=== PATIENT | female | born 1960 | race Caucasian/White ===

== ENCOUNTER → 2017-03-06 | Outpatient (CLI) | payer MEDICARE ==
--- NOTE | 2017-03-06 15:17 | REP ---
PELVIC ULTRASOUND: Real-time sonographic evaluation of the pelvis is performed utilizing transabdominal and endovaginal technique. The bladder measures 9.8 x 6.7 x 9.3 cm. The uterus measures 4.9 x 2.2 x 3.3 cm. Endometrial stripe measures 2 mm with no endometrial fluid collection. The right ovary could not be visualized. The left ovary measures 2.1 x 1.2 x 1.0 cm. There is no adnexal mass or free fluid. IMPRESSION: Essentially negative pelvic ultrasound as described above.
== END ==
LOC: M WHC 10:42
PROVIDERS: ATTEND Nurse Practitioner Family
DX: N95.0 Postmenopausal bleeding (principal)

== ENCOUNTER → 2017-08-04 | Outpatient (CLI) | payer MEDICARE, MEDICAID ==
--- NOTE | 2017-08-04 12:13 | REPMRS ---
Patient History The patient states she had a clinical breast exam in 07/2017. Patient is postmenopausal, has history of other cancer at age 49, and is nulliparous. Family history of breast cancer in 2 maternal aunts. Digital Woman Screen Mammo: August 04, 2017 - Exam #: [id number] Bilateral CC and MLO view(s) were taken. Technologist: Alma Sevilla, Technologist Prior study comparison: June 10, 2016, digital woman screen mammo performed at [facility]. May 03, 2015, digital woman screen mammo performed at [facility] to [facility]. FINDINGS: There are scattered fibroglandular densities. There has been no change in the appearance of the mammogram from the prior studies. There is a mild amount of residual fibroglandular tissue which is fairly symmetric. There is no interval development of dominant mass, architectural distortion, or clustered microcalcification suggestive of malignancy. ASSESSMENT: BI-RADS/ACR category 1 mammogram. Negative. Recommendation Routine screening mammogram in 1 year (for women over age 40). This mammogram was interpreted with the aid of an FDA-approved computer-aided dectection system. Electronically Signed By: Nasir Jiménez MD 08/04/17 0815
== END ==
LOC: M WHC 09:49
PROVIDERS: ATTEND Nurse Practitioner Family
DX: Z12.31 Encounter for screening mammogram for malignant neoplasm of breast (principal); Z78.0 Asymptomatic menopausal state; Z12.4 Encounter for screening for malignant neoplasm of cervix; Z12.12 Encounter for screening for malignant neoplasm of rectum; N88.8 Other specified noninflammatory disorders of cervix uteri
CPT/HCPCS: 82270; G0101; G0123; G0202

== ENCOUNTER → 2017-08-04 | Outpatient (REF) | payer MEDICARE, MEDICAID | LOC: M SFHCWAGY 10:21 | PROVIDERS: ATTEND Nurse Practitioner Family | DX: Z12.4 Encounter for screening for malignant neoplasm of cervix (principal); N88.8 Other specified noninflammatory disorders of cervix uteri ==

== ENCOUNTER → 2018-07-09 | Outpatient (CLI) | payer MEDICARE, MEDICAID | LOC: M PLARAD 07:37 | DX: G89.4 Chronic pain syndrome (principal); R93.7 Abnormal findings on diagnostic imaging of other parts of musculoskeletal system | CPT/HCPCS: 72148 ==

== ENCOUNTER → 2018-07-19 | Outpatient (CLI) | payer MEDICARE, MEDICAID | LOC: M PAIN 10:30 | DX: M43.07 Spondylolysis, lumbosacral region (principal); M48.07 Spinal stenosis, lumbosacral region; G89.29 Other chronic pain; I10 Essential (primary) hypertension; F32.9 Major depressive disorder, single episode, unspecified; K21.9 Gastro-esophageal reflux disease without esophagitis; M17.10 Unilateral primary osteoarthritis, unspecified knee; E66.01 Morbid (severe) obesity due to excess calories; Z68.41 Body mass index [BMI] 40.0-44.9, adult; Z79.899 Other long term (current) drug therapy; Z87.891 Personal history of nicotine dependence; Z98.84 Bariatric surgery status | CPT/HCPCS: G0463 ==

== ENCOUNTER → 2018-08-31 | Outpatient (CLI) | payer MEDICARE, MEDICAID ==
--- NOTE | 2018-08-31 14:46 | REPMRS ---
Patient History The patient states she had a clinical breast exam in 08/2018. Patient is postmenopausal, has history of vulvar cancer at age 49, and is nulliparous. Family history of breast cancer in maternal aunt, breast cancer in maternal aunt. No Hormone Replacement Therapy 3D TOMOSYNTHESIS WAS PERFORMED. Digital Woman Screen Mammo: August 31, 2018 - Exam #: [id number] Bilateral CC and MLO view(s) were taken. Technologist: Alma Sevilla, Technologist Prior study comparison: August 04, 2017, digital woman screen mammo performed at [email or web address]. June 10, 2016, digital woman screen mammo performed at [email or web address] to [facility]. FINDINGS: There are scattered fibroglandular densities. There has been no change in the appearance of the mammogram from the prior studies. There is a mild amount of residual fibroglandular tissue which is fairly symmetric. There is no interval development of dominant mass, architectural distortion, or clustered microcalcification suggestive of malignancy. Assessment: BI-RADS/ACR category 1 mammogram. Negative. Recommendation Routine screening mammogram in 1 year (for women over age 40). This mammogram was interpreted with the aid of an FDA-approved computer-aided dectection system. Electronically Signed By: Nasir Jiménez MD 08/31/18 [id number]
== END ==
LOC: M WHC 13:54
PROVIDERS: ATTEND Nurse Practitioner Family
DX: Z12.31 Encounter for screening mammogram for malignant neoplasm of breast (principal); Z78.0 Asymptomatic menopausal state; Z85.44 Personal history of malignant neoplasm of other female genital organs; Z12.4 Encounter for screening for malignant neoplasm of cervix; N95.2 Postmenopausal atrophic vaginitis
CPT/HCPCS: 77063; 77067; 87624; G0123; G0463

== ENCOUNTER → 2018-08-31 | Outpatient (REF) | payer MEDICARE, MEDICAID ==
[2018-09-06 08:06] LABS: HPV HYBRID CAPTURE II Negative (Negative)
== END ==
LOC: M SFHCWAGY 13:41
DX: Z12.4 Encounter for screening for malignant neoplasm of cervix (principal); N95.2 Postmenopausal atrophic vaginitis
CPT/HCPCS: G0123

== ENCOUNTER → 2018-10-14 | Outpatient (CLI) | payer MEDICARE, MEDICAID ==
--- NOTE | 2018-10-14 20:03 | REP ---
Clinical: Abdominal pain. Technique: Two supine views of the abdomen and pelvis. Findings: Findings suggest prior gastric bypass surgery. The bowel gas pattern is nonspecific. No organomegaly. No significant abnormal calcifications are identified. Degenerative changes to the visualized thoracolumbar spine and pelvis/hips noted. Impression: Nonspecific bowel gas pattern. Prior gastric bypass surgery. Electronically Signed by Nathen Meza MD 10/14/2018 07:55 P
== END ==
LOC: M LRY 10:28
PROVIDERS: ATTEND Nurse Practitioner Adult Health
DX: R10.30 Lower abdominal pain, unspecified (principal); R10.10 Upper abdominal pain, unspecified; M62.838 Other muscle spasm; Z98.84 Bariatric surgery status

== ENCOUNTER → 2018-11-04 | Outpatient (CLI) | payer MEDICARE, MEDICAID ==
[2018-11-06 14:43] LABS: PROTEIN C FUNCTIONAL ACTIVITY 140 % (73-180); PROTEIN S FUNCTIONAL ACTIVITY 92 % (63-140)
== END ==
LOC: M LAB 10:40
PROVIDERS: ATTEND Nurse Practitioner Adult Health
DX: E03.9 Hypothyroidism, unspecified (principal); E11.9 Type 2 diabetes mellitus without complications; R58 Hemorrhage, not elsewhere classified

== ENCOUNTER 2019-03-02 08:04 | Day surgery (SDC) | payer MEDICARE, MEDICAID ==
[~2019-03-02] VITALS: Ht 152.4 cm; Wt 102.1 kg
[~2019-03-02 08:04] MED LIST: BUPR75TA5; KETOROLAC 60 MG/2 ML VIAL (J1885) As Ordered ONE; LIDOCAINE 2% INJ 100 MG/5 ML SDV (FOR ANES.) As Ordered ONE; LISI-538; LISI20TA; LR 1,000 ML IV ONE; MIDAZOLAM INJ 2 MG/2 ML VIAL (J2250) As Ordered ONE; ONDANSETRON 4MG/2ML VIAL (J2405) As Ordered ONE; ONETAB20 PO; PANT20TA2; PROPOFOL 200 MG/20 ML VIAL As Ordered ONE; SERT-138; TRAZ150T90; fentaNYL 100 MCG/2 ML INJECTION (J3010) As Ordered ONE
[2019-03-02] MEDS ORDERED: LIDOCAINE 1% SDV INJ 30 ML VIAL As Ordered ONE (09:30)
[2019-03-02] MEDS ORDERED: dexameTHASONE 4 MG/ML 1ML VIAL (J1100) As Ordered ONE (09:30)
[2019-03-02] MEDS ORDERED: BUPIVACAINE HCL 0.5% 30 ML VIAL As Ordered ONE (09:30)
[2019-03-02] MEDS ORDERED: KETAMINE HCL 200 MG/20 ML VIAL As Ordered ONE (10:02)
[2019-03-02] MEDS ORDERED: MIDAZOLAM INJ 2 MG/2 ML VIAL (J2250) As Ordered ONE (10:12)
[2019-03-02] MEDS ORDERED: PROPOFOL 200 MG/20 ML VIAL As Ordered ONE ×3 (10:15→11:02)
[2019-03-02] MEDS ORDERED: fentaNYL 100 MCG/2 ML INJECTION (J3010) As Ordered ONE (11:04)
[2019-03-02] MEDS ORDERED: HYDR-3713 PO (11:40)
[2019-03-02 12:25] VITALS: BP 127/59
[2019-03-02] MEDS ORDERED: LR 1,000 ML IV SCH (12:30)
[2019-03-02] MEDS ORDERED: ACETAMINOPHEN TAB 650MG DOSE (2X325MG) PO PRN (12:30)
[2019-03-02] MEDS ORDERED: ONDANSETRON 4MG/2ML VIAL (J2405) IV PRN (12:30)
--- NOTE | 2019-03-02 13:59 | RO ---
DATE OF PROCEDURE: 03/02/2019 PREPROCEDURE DIAGNOSES: Left foot bunion hallux valgus, second and third metatarsal deformities, and fourth hammertoe. POSTPROCEDURE DIAGNOSES: Left foot bunion hallux valgus, second and third metatarsal deformities, and fourth hammertoe. SURGEON: Vincent Herrera DPM SALES REPRESENTATIVE PRINTING PAPER: None. PROCEDURE: Left bunionectomy, first metatarsal osteotomy, second and third shortening osteotomies and fourth flexor tenotomy. ANESTHESIA: Monitored anesthesia care with preoperative injection of 20 mL of 1:1 mixture of 1% lidocaine plain and 0.5% Marcaine plain. ESTIMATED BLOOD LOSS: Minimal. MATERIALS: 3-0 and 4-0 Vicryl, 4-0 nylon, Arthrex 2.5 headless compression screw, Arthrex 3.5 headless compression screw, and 4.5 K wires. 21 INJECTABLES: 1 mL of Decadron 4 mg/mL and 10 mL Lidocaine plain. COMPLICATIONS: None. CONDITION: Stable. Lauren Powers is a 58-year-old female who presents to [facility] with complaints of painful toe deformities. She presents today for surgical correction. The patient and site were identified and marked in the preoperative holding area. Consent was reviewed and obtained. Complications and alternatives to the procedure were explained to the patient in detail and all questions were answered. DESCRIPTION OF PROCEDURE: The patient was brought to the operating room and placed on the operating room table in the supine position. Monitored anesthesia care was delivered by the anesthesia team. Preoperative injection of 20 mL of 1:1 mixture of 1% lidocaine plain and 0.5% Marcaine plain were injected into the left foot. The left foot was prepped and draped in the normal sterile fashion. Tourniquet was applied to the left ankle and inflated at 250 mmHg. The patient received Ancef preoperatively. Dorsal incision was first made over the first metatarsophalangeal joint and dissection was carried down to the metatarsophalangeal joint capsule. Capsulotomy was performed, exposing the metatarsal head. Following this, lateral release was performed to release lateral adductor tendons and sesamoidal ligaments. McGlamry elevator was used to release the plantar structures. The medial eminence of the metatarsal head was resected with sagittal saw and ostotomy was performed of the metatarsal head, transposing it laterally, this was fixated with an Arthrex 3.5 headless compression screw. The remaining bone ledge was removed with sagittal saw and smoothed with rasp. A small wedge of capsule was removed from the medial capsule and capsule repair was performed with 3-0 Vicryl, subcutaneous closure with 4-0 Vicryl and skin was closed with 4-0 nylon. Next, attention was turned to the second and third toes. Dorsal incision was made over the metatarsals with a number 15 blade. Dissection was carried until each joint capsule was identified. Linear capsulotomy was performed exposing the second and third metatarsal heads. An ostomy was performed in these metatarsal heads, transposing the head of the metatarsal proximally and laterally. These were fixated with Arthrex 2.5 headless compression screws. The remaining bone ledge was removed with rongeur and smoothed with rasp. The site was irrigated with normal saline. After irrigation, a 4.0 K wire was placed in both the second and third toe from the distal toe entering the metatarsal head. Capsular repair was performed with 3-0 Vicryl, subcutaneous closure with 4-0 Vicryl, and skin closure with 4-0 nylon. Attention was then paid to the fourth toe. A flexor tenotomy was performed making a percutaneous incision over the plantar aspect of the toe, releasing the flexor tendon. Improved position of the toe was noted and this incision was repaired with 4-0 nylon. 10 mL of lidocaine was used during the procedure and 1 mL of Decadron was used at the end of the procedure. Sterile dressings were applied. The tourniquet was deflated. The patient was brought to the postanesthesia care unit (PACU), vital signs stable, neurovascular status intact. She will be partial weight bearing. She will followup in the office in 2 days.
== END 2019-03-02 12:50 | disposition home or self-care (01) ==
LOC: M SDC 08:04
PROVIDERS: ATTEND Podiatrist Foot & Ankle Surgery
DX: M20.12 Hallux valgus (acquired), left foot (principal); M20.42 Other hammer toe(s) (acquired), left foot; M20.5X2 Other deformities of toe(s) (acquired), left foot; I10 Essential (primary) hypertension; I49.9 Cardiac arrhythmia, unspecified; E03.9 Hypothyroidism, unspecified; E16.2 Hypoglycemia, unspecified; K21.9 Gastro-esophageal reflux disease without esophagitis; M12.9 Arthropathy, unspecified; F32.9 Major depressive disorder, single episode, unspecified; E11.9 Type 2 diabetes mellitus without complications; E78.2 Mixed hyperlipidemia; E66.9 Obesity, unspecified; Z68.41 Body mass index [BMI] 40.0-44.9, adult; Z79.899 Other long term (current) drug therapy; Z98.84 Bariatric surgery status; Z78.0 Asymptomatic menopausal state; Z87.891 Personal history of nicotine dependence
CPT/HCPCS: 28010; 28296; 28308; 88300; 97530; C1713; J0690; J1100; J2250; J2405; J3010

== ENCOUNTER → 2019-03-23 | Outpatient (REF) | payer MEDICARE, MEDICAID ==
[~2019-03-23] MED LIST changes: +DOXY100C37 PO; +HYDR-3713 PO; -KETOROLAC 60 MG/2 ML VIAL (J1885) As Ordered ONE; -LIDOCAINE 2% INJ 100 MG/5 ML SDV (FOR ANES.) As Ordered ONE; -LR 1,000 ML IV ONE; -MIDAZOLAM INJ 2 MG/2 ML VIAL (J2250) As Ordered ONE; -ONDANSETRON 4MG/2ML VIAL (J2405) As Ordered ONE; -PROPOFOL 200 MG/20 ML VIAL As Ordered ONE; +SULF1TAB93; -fentaNYL 100 MCG/2 ML INJECTION (J3010) As Ordered ONE
== END ==
LOC: M LAB REF 16:19
PROVIDERS: ATTEND Podiatrist Foot & Ankle Surgery
DX: L03.116 Cellulitis of left lower limb (principal)

== ENCOUNTER 2019-03-25 15:50 | Emergency (ER) | payer MEDICARE, MEDICAID ==
[~2019-03-25] VITALS: Ht 152.4 cm; Wt 103.7 kg
[~2019-03-25 15:50] MED LIST changes: -DOXY100C37 PO; -SULF1TAB93
[2019-03-25] MEDS ORDERED: SULF1TAB93 (16:14)
[2019-03-25] MEDS ORDERED: NS 1,000 ML IV ONE (16:30)
[2019-03-25 17:33] LABS: BASO # 0.1 10^3/uL (0.0-0.2); BASO % 0.6 % (0.0-1.0); EOS # 0.6 10^3/uL (0.0-0.50); EOS % 5.8 % (0.0-3.0); HEMATOCRIT 37.7 % (36.0-47.0); HEMOGLOBIN 12.4 g/dl (12.0-15.5); LYMPH # 1.3 10^3/uL (1.5-4.5); LYMPH % 12.7 % (24.0-44.0); MEAN CORPUSCULAR HGB CONC 32.9 g/dl (32.0-36.5); MEAN CORPUSCULAR VOLUME 94.3 fl (80.0-96.0); MONO % 9.4 % (0.0-5.0); NEUTROPHILS # 7.2 10^3/uL (1.8-7.7); NEUTROPHILS % 71.3 % (36.0-66.0); PLATELET COUNT, AUTOMATED 263 10^3/uL (150-450); WHITE BLOOD COUNT 10.1 10^3/uL (4.0-10.0)
[2019-03-25 17:43] LABS: ALBUMIN 3.8 GM/DL (3.2-5.2); BILIRUBIN,DIRECT 0.2 MG/DL (0.0-0.2); BILIRUBIN,TOTAL 0.4 MG/DL (0.2-1.0); TOTAL PROTEIN 7.3 GM/DL (6.4-8.2)
[2019-03-25 17:47] LABS: INR 0.98; PARTIAL THROMBOPLASTIN TIME 25.1 SECONDS (25.0-38.4); PROTHROMBIN TIME 12.7 SECONDS (11.8-14.0)
[2019-03-25] MEDS ORDERED: DOXY100C37 PO (17:57)
[2019-03-25 18:07] LABS: ERYTHROCYTE SEDIMENTATION RATE 26 mm/hr (0-30)
[2019-03-25 18:19] VITALS: BP 158/74
== END 2019-03-25 18:22 | disposition home or self-care (01) ==
LOC: M ED 15:50
DX: R21 Rash and other nonspecific skin eruption (principal); T36.8X5A Adverse effect of other systemic antibiotics, initial encounter; N17.9 Acute kidney failure, unspecified; I10 Essential (primary) hypertension; Z79.899 Other long term (current) drug therapy
CPT/HCPCS: 36415; 80047; 80053; 80076; 81002; 85025; 85610; 85652; 85730; 96360; 99284; G0463

== ENCOUNTER → 2019-03-25 | Outpatient (REF) | payer MEDICARE, MEDICAID ==
[2019-03-25 14:00] LABS: BASO # 0.1 10^3/uL (0.0-0.2); BASO % 0.5 % (0.0-1.0); EOS # 0.6 10^3/uL (0.0-0.50); EOS % 5.9 % (0.0-3.0); HEMATOCRIT 39.6 % (36.0-47.0); HEMOGLOBIN 12.8 g/dl (12.0-15.5); LYMPH # 1.4 10^3/uL (1.5-4.5); LYMPH % 12.7 % (24.0-44.0); MEAN CORPUSCULAR HEMOGLOBIN 30.2 pg (27.0-33.0); MEAN CORPUSCULAR HGB CONC 32.3 g/dl (32.0-36.5); MEAN CORPUSCULAR VOLUME 93.4 fl (80.0-96.0); MONO # 0.7 10^3/uL (0.0-0.8); MONO % 6.7 % (0.0-5.0); NEUTROPHILS # 8.1 10^3/uL (1.8-7.7); NEUTROPHILS % 73.9 % (36.0-66.0); PLATELET COUNT, AUTOMATED 317 10^3/uL (150-450); RED BLOOD COUNT 4.24 10^6/uL (4.00-5.40); WHITE BLOOD COUNT 10.9 10^3/uL (4.0-10.0)
[2019-03-25 14:07] LABS: BILIRUBIN,TOTAL 0.6 MG/DL (0.2-1.0); CALCIUM LEVEL 9.3 MG/DL (8.5-10.1); CREATININE FOR GFR 1.32 MG/DL (0.55-1.30); GLOMERULAR FILTRATION RATE 43.9 (>51); POTASSIUM SERUM 4.4 MEQ/L (3.5-5.1); TOTAL PROTEIN 7.5 GM/DL (6.4-8.2)
== END ==
LOC: M SFHCLERA 11:11
PROVIDERS: ATTEND Nurse Practitioner Family
DX: R23.3 Spontaneous ecchymoses (principal)

== ENCOUNTER → 2019-03-30 | Outpatient (REF) | payer MEDICARE, MEDICAID ==
[~2019-03-30] MED LIST changes: +DOXY100C37 PO; +SULF1TAB93
== END ==
LOC: M LAB REF 17:44
PROVIDERS: ATTEND Podiatrist Foot & Ankle Surgery
DX: M20.12 Hallux valgus (acquired), left foot (principal); L03.116 Cellulitis of left lower limb

== ENCOUNTER → 2019-07-07 | Outpatient (CLI) | payer MEDICARE, MEDICAID ==
[~2019-07-07] MED LIST changes: -LISI20TA; +LISI20TA19
--- NOTE | 2019-07-07 13:58 | REP ---
Six views of the calvaria: 07/07/2019. Indication: Head trauma. Comparison: None. Findings: There is no evidence of fracture. No lytic or blastic lesions of the calvarium are detected. The paranasal sinuses appear well-aerated. Impression: No fracture. Electronically Signed by Morteza Felton DO 07/07/2019 01:50 P
== END ==
LOC: M LRY 12:36
PROVIDERS: ATTEND Internal Medicine Cardiovascular Disease
DX: S09.90XA Unspecified injury of head, initial encounter (principal); X58.XXXA Exposure to other specified factors, initial encounter; Y92.9 Unspecified place or not applicable

== ENCOUNTER → 2019-09-01 | Outpatient (CLI) | payer MEDICARE, MEDICAID ==
--- NOTE | 2019-09-01 15:06 | REPMRS ---
Patient History The patient states she had a clinical breast exam in August 2019.Family history of breast cancer in maternal aunt, breast cancer in maternal aunt. No Hormone Replacement Therapy 3D TOMOSYNTHESIS WAS PERFORMED. [facility]%. Digital Woman Screen Mammo: September 01, 2019 - Exam #: [id number] Bilateral CC and MLO view(s) were taken. Technologist: Marcella Bales, Technologist Prior study comparison: August 31, 2018, bilateral digital woman screen mammo performed at [facility]. August 04, 2017, digital woman screen mammo performed at [facility]. FINDINGS: There are scattered fibroglandular densities. There has been no change in the appearance of the mammogram from the prior studies. There is a mild amount of residual fibroglandular tissue which is fairly symmetric. There is no interval development of dominant mass, architectural distortion, or clustered microcalcification suggestive of malignancy. Assessment: BI-RADS/ACR category 1 mammogram. Negative Mammogram. Recommendation Routine screening mammogram in 1 year (for women over age 40). This mammogram was interpreted with the aid of an FDA-approved computer-aided dectection system. Electronically Signed By: Nasir Jiménez MD 09/01/19 8814
== END ==
LOC: M WHC 13:40
PROVIDERS: ATTEND Nurse Practitioner Family
DX: Z01.419 Encounter for gynecological examination (general) (routine) without abnormal findings (principal); Z12.31 Encounter for screening mammogram for malignant neoplasm of breast
CPT/HCPCS: 77063; 77067; G0101; G0463

== ENCOUNTER → 2019-09-26 | Outpatient (CLI) | payer MEDICARE, MEDICAID ==
--- NOTE | 2019-09-26 20:26 | REP ---
Clinical: Obstructive sleep apnea . Comparison: None . Technique: PA and lateral. Findings: The mediastinum and cardiac silhouette are normal. The lung rags[place] are clear and without acute consolidation, effusion, or pneumothorax. The skeletal structures are intact and normal. Impression: 1. No acute cardiopulmonary process. Electronically Signed by Nathen Meza MD 09/26/2019 08:17 P
== END ==
LOC: M LRY 15:43
PROVIDERS: ATTEND Nurse Practitioner Adult Health
DX: G47.33 Obstructive sleep apnea (adult) (pediatric) (principal); R53.83 Other fatigue; J06.9 Acute upper respiratory infection, unspecified

== ENCOUNTER 2020-02-27 14:40 | Emergency (ER) | payer MEDICARE, MEDICAID ==
[~2020-02-27] VITALS: Ht 152.4 cm; Wt 98.6 kg
[~2020-02-27 14:40] MED LIST changes: -LISI-538; -LISI20TA19; +LISI20TA33; +LISI20TA35; -PANT20TA2; +PANT20TA6
[2020-02-27] MEDS ORDERED: METO1TAB87 PO (15:18)
[2020-02-27] MEDS ORDERED: ONDA-83 PO (15:18)
[2020-02-27] MEDS ORDERED: FLAG500T PO (15:18)
[2020-02-27] MEDS ORDERED: CIPR-249 PO (15:18)
[2020-02-27] MEDS ORDERED: PROB1CAP10 PO (15:18)
[2020-02-27 15:47] LABS: BASO # 0.1 10^3/uL (0.0-0.2); BASO % 0.8 % (0.0-1.0); EOS # 0.5 10^3/uL (0.0-0.5); EOS % 3.9 % (0.0-3.0); HEMATOCRIT 42.3 % (36.0-47.0); HEMOGLOBIN 13.5 g/dl (12.0-15.5); LYMPH # 2.7 10^3/uL (1.5-5.0); LYMPH % 20.1 % (24.0-44.0); MEAN CORPUSCULAR HEMOGLOBIN 32.9 pg (27.0-33.0); MEAN CORPUSCULAR HGB CONC 31.9 g/dl (32.0-36.5); MEAN CORPUSCULAR VOLUME 103.2 fl (80.0-96.0); MONO # 1.1 10^3/uL (0.0-0.8); MONO % 8.2 % (0.0-5.0); NEUTROPHILS % 66.8 % (36.0-66.0); PLATELET COUNT, AUTOMATED 307 10^3/uL (150-450); WHITE BLOOD COUNT 13.5 10^3/uL (4.0-10.0)
[2020-02-27 16:10] LABS: ALBUMIN 3.2 GM/DL (3.2-5.2); BILIRUBIN,DIRECT 0.2 MG/DL (0.0-0.2); BILIRUBIN,TOTAL 0.6 MG/DL (0.2-1.0); CALCIUM LEVEL 8.5 MG/DL (8.8-10.2); CREATININE FOR GFR 1.05 MG/DL (0.55-1.30); GLOMERULAR FILTRATION RATE 56.9 (>45); POTASSIUM SERUM 4.3 MEQ/L (3.5-5.1); TOTAL PROTEIN 6.4 GM/DL (6.4-8.2)
[2020-02-27 17:16] VITALS: BP 135/98
[2020-07-12] MEDS ORDERED: FAMO1TAB11 (10:24)
[2020-07-12] MEDS ORDERED: ALIG4CAP PO (10:38)
[2020-07-12] MEDS ORDERED: LOPE-39 PO (10:38)
[2020-07-12] MEDS ORDERED: PRES10CA2 PO (10:38)
[2020-11-01] MEDS ORDERED: SPIR-10 PO (16:21)
== END 2020-02-27 17:16 | disposition home or self-care (01) ==
LOC: M ED 14:40
DX: R19.7 Diarrhea, unspecified (principal); R53.83 Other fatigue; Z98.84 Bariatric surgery status; I10 Essential (primary) hypertension

== ENCOUNTER → 2020-02-28 | Outpatient (REF) | payer MEDICARE, MEDICAID ==
[~2020-02-28] MED LIST changes: +CIPR-249 PO; +FLAG500T PO; +LISI-538; +LISI20TA19; -LISI20TA33; -LISI20TA35; +METO1TAB87 PO; +ONDA-83 PO; +PANT20TA2; -PANT20TA6; +PROB1CAP10 PO
== END ==
LOC: M LAB REF 14:35
PROVIDERS: ATTEND Physician Assistant Medical
DX: R19.7 Diarrhea, unspecified (principal)

== ENCOUNTER → 2020-03-13 | Outpatient (REF) | payer MEDICARE, MEDICAID ==
[~2020-03-13] MED LIST changes: +ALDA50TA2 PO; +ALIG4CAP PO; +CHOL4PW PO; +FAMO1TAB11; +LASI40TA9 PO; -LISI20TA19; +LISI20TA35; +LOPE-39 PO; -PANT20TA2; +PANT20TA6; +POTA10TA17 PO; +PRES10CA2 PO; +XIFA550T PO
[2020-03-13 21:35] LABS: CLOSTRIDIUM DIFFICILE PCR NEGATIVE (NEGATIVE)
== END ==
LOC: M SFHCPLAZ 16:25
PROVIDERS: ATTEND Internal Medicine Infectious Disease
DX: A04.72 Enterocolitis due to Clostridium difficile, not specified as recurrent (principal)

== ENCOUNTER → 2020-05-23 | Outpatient (REF) | payer MEDICARE, MEDICAID | LOC: M LAB REF 11:30 | PROVIDERS: ATTEND Dermatology | DX: C44.41 Basal cell carcinoma of skin of scalp and neck (principal) | CPT/HCPCS: 11102; 88305; G0463 ==

== ENCOUNTER → 2020-06-04 | Outpatient (REF) | payer MEDICARE, MEDICAID | LOC: M SFHCPLAZ 10:20 | PROVIDERS: ATTEND Internal Medicine Infectious Disease | DX: R19.7 Diarrhea, unspecified (principal) ==

== ENCOUNTER → 2020-06-26 | Outpatient (CLI) | payer MEDICARE, MEDICAID ==
[2020-07-03 15:07] LABS: METANEPHRINE PLASMA 25.6 pg/mL (0.0-88.0); NORMETANEPHRINE PLASMA 127.5 pg/mL (0.0-191.8)
== END ==
LOC: M LAB 11:14
PROVIDERS: ATTEND Internal Medicine Endocrinology, Diabetes & Metabolism
DX: D35.02 Benign neoplasm of left adrenal gland (principal)

== ENCOUNTER → 2020-07-16 | Outpatient (REF) | payer MEDICARE, MEDICAID | LOC: M SFHCPLAZ 15:26 | PROVIDERS: ATTEND Internal Medicine Infectious Disease | DX: Z20.828 Contact with and (suspected) exposure to other viral communicable diseases (principal) ==

== ENCOUNTER → 2020-07-16 | Outpatient (CLI) | payer MEDICARE, MEDICAID ==
[~2020-07-16] MED LIST changes: -ALDA50TA2 PO; -CHOL4PW PO; -LASI40TA9 PO; -POTA10TA17 PO; -XIFA550T PO
[2020-07-16 17:47] LABS: BASO # 0.1 10^3/uL (0.0-0.2); BASO % 0.7 % (0.0-1.0); EOS # 0.4 10^3/uL (0.0-0.5); EOS % 2.3 % (0.0-3.0); HEMATOCRIT 42.7 % (36.0-47.0); HEMOGLOBIN 12.8 g/dl (12.0-15.5); LYMPH # 3.5 10^3/uL (1.5-5.0); LYMPH % 18.4 % (24.0-44.0); MEAN CORPUSCULAR VOLUME 113.3 fl (80.0-96.0); MONO # 1.5 10^3/uL (0.0-0.8); MONO % 7.8 % (0.0-5.0); NEUTROPHILS # 13.3 10^3/uL (1.5-8.5); NEUTROPHILS % 70.3 % (36.0-66.0); PLATELET COUNT, AUTOMATED 332 10^3/uL (150-450); RED BLOOD COUNT 3.77 10^6/uL (4.00-5.40); WHITE BLOOD COUNT 18.9 10^3/uL (4.0-10.0)
[2020-07-16 18:29] LABS: ALBUMIN 2.3 GM/DL (3.2-5.2); ALT/SGPT 59 U/L (12-78); BILIRUBIN,TOTAL 2.5 MG/DL (0.2-1.0); BLOOD UREA NITROGEN 12 MG/DL (7-18); CALCIUM LEVEL 8.6 MG/DL (8.8-10.2); CARBON DIOXIDE LEVEL 26 MEQ/L (21-32); CHLORIDE LEVEL 111 MEQ/L (98-107); CREATININE FOR GFR 0.89 MG/DL (0.55-1.30); FREE T4 1.58 NG/DL (0.76-1.46); GLOMERULAR FILTRATION RATE > 60.0 (>45); GLUCOSE, FASTING 87 MG/DL (70-100); IRON (FE) 61 UG/DL (50-170); PERCENT SATURATION 37.7 % (13.2-45.0); POTASSIUM SERUM 4.8 MEQ/L (3.5-5.1); SODIUM LEVEL 145 MEQ/L (136-145); TOTAL IRON BINDING CAPACITY 162 UG/DL (250-450); TOTAL PROTEIN 5.9 GM/DL (6.4-8.2)
[2020-07-18 14:42] LABS: BILIRUBIN,DIRECT 1.8 MG/DL (0.0-0.2)
== END ==
LOC: M PLALAB 12:58
PROVIDERS: ATTEND Internal Medicine Gastroenterology
DX: R19.7 Diarrhea, unspecified (principal); A04.72 Enterocolitis due to Clostridium difficile, not specified as recurrent

== ENCOUNTER 2020-07-19 12:03 | Inpatient (IN) | payer MEDICARE, MEDICAID ==
[~2020-07-19] VITALS: Ht 152.4 cm; Wt 95.4 kg
[~2020-07-19 12:03] MED LIST changes: +NS 1,000 ML IV ONE; +PANTOPRAZOLE 20 MG TAB PO SCH
[2020-07-19] MEDS ORDERED: LIDOCAINE 2% 100MG/5ML SDV (FOR ANES.) As Ordered ONE (12:15)
[2020-07-19] MEDS ORDERED: propofoL 200 MG/20 ML VIAL As Ordered ONE ×2 (12:15→15:36)
[2020-07-19 13:23] LABS: BASO # 0.1 10^3/uL (0.0-0.2); BASO % 0.6 % (0.0-1.0); EOS # 0.4 10^3/uL (0.0-0.5); EOS % 2.2 % (0.0-3.0); HEMOGLOBIN 11.8 g/dl (12.0-15.5); LYMPH # 2.6 10^3/uL (1.5-5.0); LYMPH % 14.1 % (24.0-44.0); MEAN CORPUSCULAR HEMOGLOBIN 33.4 pg (27.0-33.0); MEAN CORPUSCULAR HGB CONC 30.3 g/dl (32.0-36.5); MEAN CORPUSCULAR VOLUME 110.5 fl (80.0-96.0); MONO # 1.3 10^3/uL (0.0-0.8); MONO % 7.1 % (0.0-5.0); NEUTROPHILS % 75.6 % (36.0-66.0); PLATELET COUNT, AUTOMATED 325 10^3/uL (150-450); RED BLOOD COUNT 3.53 10^6/uL (4.00-5.40); WHITE BLOOD COUNT 18.5 10^3/uL (4.0-10.0)
[2020-07-19 13:33] LABS: INR 1.33; PROTHROMBIN TIME 16.8 SECONDS (12.5-14.3)
[2020-07-19 13:39] LABS: ALBUMIN 2.2 GM/DL (3.2-5.2); ALT/SGPT 52 U/L (12-78); BILIRUBIN,TOTAL 2.8 MG/DL (0.2-1.0); BLOOD UREA NITROGEN 11 MG/DL (7-18); CARBON DIOXIDE LEVEL 25 MEQ/L (21-32); CHLORIDE LEVEL 107 MEQ/L (98-107); CREATININE FOR GFR 1.01 MG/DL (0.55-1.30); GLOMERULAR FILTRATION RATE 59.3 (>45); GLUCOSE, FASTING 85 MG/DL (70-100); IRON (FE) 64 UG/DL (50-170); PERCENT SATURATION 43.5 % (13.2-45.0); POTASSIUM SERUM 4.8 MEQ/L (3.5-5.1); SODIUM LEVEL 142 MEQ/L (136-145); TOTAL IRON BINDING CAPACITY 147 UG/DL (250-450); TOTAL PROTEIN 5.6 GM/DL (6.4-8.2)
[2020-07-19 13:55] LABS: VITAMIN B12 LEVEL 1922 PG/ML (247-911)
[2020-07-19 14:06] LABS: HEPATITIS B SURFACE ANTIGEN NEGATIVE (NEGATIVE)
[2020-07-19 14:33] LABS: HEPATITIS C VIRUS ABY INDEX 0.1 INDEX (<0.8)
[2020-07-19 14:34] LABS: HEPATITIS B CORE ANTIBODY IGM NEGATIVE (NEGATIVE)
[2020-07-19 14:35] LABS: HEPATITIS A ANTIBODY IGM NEGATIVE (NEGATIVE)
--- NOTE | 2020-07-19 16:21 | ROOR ---
Patient Name: Lauren Powers Procedure Date: 07/19/2020 3:06 PM Date of : 1960 Age: 60 Room: [facility] Gender: Female Note Status: Finalized Procedure: Colonoscopy Indications: Generalized abdominal pain, Chronic diarrhea Providers: Kush DYSON MD Referring MD: ALIE ISRAEL NP Requesting Provider: Medicines: Monitored Anesthesia Care Complications: No immediate complications. Procedure: Pre-Anesthesia Assessment: - The heart rate, respiratory rate, oxygen saturations, blood pressure, adequacy of pulmonary ventilation, and response to care were monitored throughout the procedure. The Colonoscope was introduced through the anus and advanced to 15 cm into the ileum. The colonoscopy was performed without difficulty. The patient tolerated the procedure fairly well. The quality of the bowel preparation was fair. Findings: The perianal and digital rectal examinations were normal. Two flat polyps were found in the hepatic flexure and ascending colon. The polyps were 5 to 9 mm in size. These polyps were removed with a cold snare. Resection and retrieval were complete. Mild sigmoid diverticulosis and small internal hemorrhoids. The exam was otherwise normal throughout the examined colon. The terminal ileum appeared normal. Biopsies for histology were taken with a cold forceps from the entire colon for evaluation of microscopic colitis. Fluid aspiration for Clostridium difficile was performed. Impression: - Preparation of the colon was fair. - Two 5 to 9 mm polyps at the hepatic flexure and in the ascending colon, removed with a cold snare. Resected and retrieved. - Mild sigmoid diverticulosis and small internal hemorrhoids. - The colon is otherwise normal. - The examined portion of the ileum was normal. - Biopsies were taken with a cold forceps from the entire colon for evaluation of microscopic colitis. - Fluid aspiration for Clostridium difficile was performed. Recommendation: - Await pathology results. - Admit the patient to hospital foster for ongoing care. Kush Dyson MD Kush DYSON MD 07/19/2020 4:20:46 PM Electronically signed by Kush DYSON MD Number of Addenda: 0 Note Initiated On: 07/19/2020 3:06 PM Estimated Blood Loss: Estimated blood loss: none.
[2020-07-19] MEDS ORDERED: NS 1,000 ML IV ONE (17:00)
[2020-07-19] MEDS ORDERED: LOPERAMIDE 2 MG CAPLET PO PRN (17:00)
--- NOTE | 2020-07-19 17:57 | REPVR ---
PROCEDURE INFORMATION: Exam: US Duplex Lower Extremity Veins, Bilateral Exam date and time: 07/19/2020 5:47 PM Age: 60 years old Clinical indication: Edema, localized; Lower extremity, bilateral; Additional info: Le edema R/O dvt TECHNIQUE: Imaging protocol: Real-time duplex ultrasound of the extremities with 2-D barroso scale, color Doppler flow and spectral waveform analysis with image documentation. Complete exam focused on the bilateral lower extremity veins. COMPARISON: No relevant prior studies available. FINDINGS: Right deep veins: Unremarkable. The common femoral, femoral and popliteal veins are patent without thrombus. Normal Doppler waveforms. Normal compressibility and/or augmentation response. Right superficial veins: Saphenofemoral junction is patent without thrombus. Left deep veins: Unremarkable. The common femoral, femoral and popliteal veins are patent without thrombus. Normal Doppler waveforms. Normal compressibility and/or augmentation response. Left superficial veins: Saphenofemoral junction is patent without thrombus. Soft tissues: Soft tissue edema is noted in the popliteal regions bilaterally. IMPRESSION: 1. No evidence of deep vein thrombosis in the lower extremities bilaterally. 2. Soft tissue edema is noted in the popliteal regions bilaterally. Electronically signed by: Nagi Hanks On 07/19/2020 17:56:41 PM
[2020-07-19] MEDS: LACTOBACILLUS ACIDOPHILUS CAP (BACID) PO SCH ×3 (18:00→20:57)
[2020-07-19 18:07] VITALS: BP 115/59
[2020-07-19 19:03] LABS: LDH LACTATE DEHYDROGENASE 583 U/L (84-246)
[2020-07-19 19:10] LABS: TOTAL 25(OH) VITAMIN D 25.4 NG/ML (30.0-100.0)
[2020-07-19 19:11] LABS: C REACTIVE PROTEIN QUANTITATIV 3.83 MG/DL (0.00-0.30); FREE THYROXINE INDEX 4.1 % (1.3-4.8); THYROID STIMULATING HORMONE 9.06 uIU/ML (0.358-3.740); VITAMIN B12 LEVEL 1859 PG/ML (247-911)
--- NOTE | 2020-07-19 19:14 | REPVR ---
PROCEDURE INFORMATION: Exam: XR Chest, 1 View Exam date and time: 07/19/2020 6:42 PM Age: 60 years old Clinical indication: Shortness of breath; Additional info: Wbc 18 TECHNIQUE: Imaging protocol: XR of the chest Views: 1 view. COMPARISON: CR CHEST 2 VIEW 09/26/2019 4:00 PM FINDINGS: Lungs: Comparison to the previous chest radiographs from 09/26/2019 shows no significant interval change. Both lungs are well-aerated. No evidence of acute pneumonia. Pleural space: Unremarkable. No pleural effusion. No pneumothorax. Heart/Mediastinum: Unremarkable. No cardiomegaly. Bones/joints: Unremarkable. IMPRESSION: Comparison to the previous chest radiographs from 09/26/2019 shows no significant interval change. Both lungs are well-aerated. No evidence of acute pneumonia. Electronically signed by: Nagi Hanks On 07/19/2020 19:14:39 PM
[2020-07-19 20:00] VITALS: BP 144/80
--- NOTE | 2020-07-19 20:24 | HPEPDOC ---
[facility] Medical History & Physical Date of Admission Jul 19, 2020 Date of Service: Jul 19, 2020 History and Physical CHIEF COMPLAINT: chronic diarrhea, LE edema, abnormal liver function tests HISTORY OF PRESENT ILLNESS: 60 y/o female was in her usual state of health until 01/24/2020 when she had a fall, and admitted to [facility] ,where she was found to have acute renal failure due to chronic diarrhea, transaminitis with negative hepatitis serology, diagnosed and treated for Cdiff with 14 days of oral vancomycin, subsequently discharged to [facility]. Since then, pt has been given macrobid for E coli cystitis x7 days, and cipro flagyl x 7days for diarrhea. She was referred to ID who recommended GI referral. Repeat Cdiff have been negative, and pt has been placed on fidaxomicin. Colonoscopy by Dr. Dyson: sigmoid diverticulosis, colon polyp, internal hemorrhoids, with biopsies to rule out microscopic colitis. Due to abnormal LFTs, LE edema, and 15lb weight loss with chronic diarrhea, hospitalist was called to admit for further workup. Pt previously had 10-12 loose stools with decreased appetite, abd cramping, generalized weakness, and 15 lb weight loss without n/v/fever, or chills, improved since xifaxan down to 5-7bm. Pt denies bloody or mucusy stools, mouth ulcers, joint pain, or rash. PAST MEDICAL HISTORY: C. Diff,Enteropathogenic E coli Diarrhea, sigmoid diverticulosis, colonic polyp, internal hemorrhoids, HTN, borderline DM, obesity, Depression, GERD, Left breast abscess, abnormal pap HSIL, SCC in situ, hirsute, h/o PCOS, postmenopausal, Knee OA, LBP,DUB, Ecoli cystitis, Adrenal adenoma PAST SURGICAL HISTORY: cologard neg 2018, D&C, 2005 gastric bypass, appendectomy 1998, vulvar biopsy (otto) HSIL, SCC insitu, laser therapy on vulva, tummy tuck 2008, left foot bunionectomy, repair of toes /tendon 02/2019, colonoscopy age 49 HOME MEDICATIONS: see below ALLERGIES: sulfa-rash SOCIAL HISTORY: , lives w . retired, [employer], former smoker, no etoh or recreational drug use. FAMILY HISTORY: father, throat ca 59 mother, CAD, CVA, DM 75 Brother, ETOH Brother, drug use REVIEW OF SYSTEMS: 10 pt ROS negative aside from + findings on HPI PHYSICAL EXAMINATION: VITALS: see below GEN: AAOx3 no respiratory distress. no conversational dyspnea, hirsute with facial hair, appears older than stated age. multiple ecchymotic areas on b/l arms HEENT:face symmetric PERRL EOMI no thyromegaly no JVD, cervical LAD,poor dentition, dry mucus membranes, no sinus tenderness, no carotid bruits LUNGS:AEBE CTAB no wheezing, rales, or rhonchi. no adventitious breath sounds HEART:S1 S2 RRR no murmurs rubs or gallops ABD: obese soft nt nd no hsm no cva tenderness rebound or guarding no abd bruit EXT:2+ edema b/l LE LABORATORY DATA, IMAGING STUDIES, MICROBIOLOGY: SEE BELOW ASSESSMENT:60 y/o female was in her usual state of health until 01/24/2020 when she had a fall, and admitted to [facility] ,where she was found to have acute renal failure due to chronic diarrhea, transaminitis with negative hepatitis serology, diagnosed and treated for Cdiff with 14 days of oral vancomycin, subsequently discharged to [facility]. Since then, pt has been given macrobid for E coli cystitis x7 days, and c ipro flagyl x 7days for diarrhea. She was referred to ID who recommended GI referral. Repeat Cdiff have been negative, and pt has been placed on fidaxomicin. Colonoscopy by Dr. Dyson: sigmoid diverticulosis, colon polyp, internal hemorrhoids, with biopsies to rule out microscopic colitis. Due to ab normal LFTs, LE edema, and 15lb weight loss with chronic diarrhea, hospitalist was called to admit for further workup. Pt previously had 10-12 loose stools with decreased appetite, abd cramping, generalized weakness, and 15 lb weight loss without n/v/fever, or chills, improved since xifaxan down to 5-7bm. Pt denies bloody or mucusy stools, mouth ulcers, joint pain, or rash. COVID-19 negative. PROBLEMS: Chronic Diarrhea h/o cdiff and enteropathogenic Ecoli Transaminitis Hyperbilirubinemia LE edema Adrenal Adenoma h/o PCOS 15 weight loss due to diarrhea sigmoid diverticulosis HTN borderline DM obesity BMI 43 Depression GERD chronic back pain leukocytosis Anemia, macrocytic PLAN: pt will be admitted as an inpt for 2 midnights to [facility]. work up for abn lft's: serology, ceruloplasmin, serum copper, abel, antimitochontrial ab, hepatitis, doppler liver us, mrcp, iron studies. workup for diarrhea: s/p colonoscopy w biopsy to rule out IBD,microscopic colitis, GI panel, thyroid profile, secretory vs osmotic diarrhea, malabsorption w rbc folate, b12, vit d. work up for anemia: check iron studies, retic count, b12, folate, peripheral smear ,stool for blood, hemolytic anemia. ID and GI consulted. continue supportive care. clear liquids per GI for now. Vital Signs Vital Signs Date Time Temp Pulse Resp B/P (MAP) Pulse Ox O2 Delivery O2 Flow Rate FiO2 07/19/20 18:07 98.5 80 16 115/59 (77) 99 Room Air Laboratory Data Labs 24H Laboratory Tests 2 07/19/20 12:54: Immature Granulocyte % (Auto) 0.4, Neutrophils (%) (Auto) 75.6H, Lymphocytes (%) (Auto) 14.1L, Monocytes (%) (Auto) 7.1H, Eosinophils (%) (Auto) 2.2, Basophils (%) (Auto) 0.6, Neutrophils # (Auto) 14.0H, Lymphocytes # (Auto) 2.6, Monocytes # (Auto) 1.3H, Eosinophils # (Auto) 0.4, Basophils # (Auto) 0.1, Nucleated Red Blood Cells % (auto) 0.0, Prothrombin Time 16.8H, Prothromb Time International Ratio 1.33, Anion Gap 10, Glomerular Filtration Rate 59.3, Calcium Level 9.0, Iron Level 64, Total Iron Binding Capacity 147L, Transferrin % Saturation 43.5, Total Bilirubin 2.8H, Direct Bilirubin 2.0H, Aspartate Amino Transf (AST/SGOT) 111H, Alanine Aminotransferase (ALT/SGPT) 52, Alkaline Phosphatase 173H, Total P rotein 5.6L, Albumin 2.2L, Albumin/Globulin Ratio 0.6L, Vitamin B12 Level 1922H, Hepatitis A IgM Antibody NEGATIVE, Hepatitis B Surface Antigen NEGATIVE, Hepatitis B Core IgM Antibody NEGATIVE, Hepatitis C Antibody Index 0.1 07/19/20 18:26: Vitamin B12 Level 1859H, Reticulocyte # (auto) 80.7H, Percent Reticulocyte Count 2.4H, Reticulocyte Hemoglobin Equivalent 35.7, Lactic Acid Level 1.8, Gamma Glutamyl Transferase 317H, Lactate Dehydrogenase 583H, C-Reactive Protein, Quant itative 3.83H, 25-Hydroxy Vitamin D Total 25.4L, Thyroid Stimulating Hormone (TSH) 9.060H, Free Thyroxine Index 4.1, Thyroxine (T4) 11.0, Triiodothyronine (T3) Uptake 37 CBC/BMP Laboratory Tests 07/19/20 12:54 07/19/20 18:26 Microbiology Microbiology 07/19/20 Blood Culture, Received Pending Home Medications Scheduled Bifidobacterium Infantis (Align) 4 Mg Capsule, 1 CAP PO DAILY Loperamide HCl (Imodium A-D) 2 Mg Capsule, 2 MG PO ASDIRECTED Metoprolol Tartrate (Metoprolol Tartrate) 25 Mg Tablet, 1 TAB PO BID Sertraline HCl (Sertraline HCl) 100 Mg Tablet, DAILY Vit C/E/Zn/Coppr/Lutein/Zeaxan (Preservision Areds 2 Softgel) 1 Each Capsule, 1 EACH PO DAILY Scheduled PRN Ondansetron HCl (Ondansetron HCl) 4 Mg Tablet, 1 TAB PO PRN PRN for NAUSEA Miscellaneous Medications Famotidine (Famotidine) 20 Mg Tablet Allergies Coded Allergies: Sulfa (Sulfonamide Antibiotics) (Verified Allergy, Intermediate, H, 1 ) A-FIB/CHADSVASC A-FIB History Current/History of A-Fib/PAF?: No Current PO Anticoag Therapy: No Age/Risk Factor Scoring CHADSVASC: CHADSVASC Response (Comments) Value Age Risk Factor Age < 65 years old 0 Gender Risk Factor Female 1 Hx of CHF No 0 Hx of HTN Yes 1 Hx of Stroke/TIA/or VTE No 0 Hx of Diabetes No 0 Hx of Vascular Disease No 0 Total 2 Treatment Treatment ordered: NONE SANDRA DAWSON MD Jul 19, 2020 19:26
[2020-07-19] MEDS: rifAXIMin 550 MG TAB (XIFAXAN) PO SCH (20:57)
[2020-07-19] MEDS: SERTRALINE 100 MG TAB PO SCH (20:57)
[2020-07-19] MEDS ORDERED: METOPROLOL TART 25 MG TABLET PO SCH (21:00)
[2020-07-19] MEDS ORDERED: FAMOTIDINE 40MG/5ML ORAL SUSPENSON 50ML BOTTLE PO SCH (21:00)
[2020-07-20 05:39] LABS: BASO # 0.1 10^3/uL (0.0-0.2); BASO % 0.7 % (0.0-1.0); EOS # 0.7 10^3/uL (0.0-0.5); EOS % 4.6 % (0.0-3.0); HEMATOCRIT 33.4 % (36.0-47.0); HEMOGLOBIN 10.7 g/dl (12.0-15.5); LYMPH # 2.3 10^3/uL (1.5-5.0); MEAN CORPUSCULAR HEMOGLOBIN 34.5 pg (27.0-33.0); MEAN CORPUSCULAR VOLUME 107.7 fl (80.0-96.0); MONO # 1.3 10^3/uL (0.0-0.8); MONO % 8.9 % (0.0-5.0); NEUTROPHILS # 10.2 10^3/uL (1.5-8.5); NEUTROPHILS % 69.5 % (36.0-66.0); PLATELET COUNT, AUTOMATED 238 10^3/uL (150-450); WHITE BLOOD COUNT 14.6 10^3/uL (4.0-10.0)
[2020-07-20 06:09] LABS: ALBUMIN 1.8 GM/DL (3.2-5.2); ALT/SGPT 41 U/L (12-78); BILIRUBIN,TOTAL 2.4 MG/DL (0.2-1.0); BLOOD UREA NITROGEN 10 MG/DL (7-18); CALCIUM LEVEL 7.7 MG/DL (8.8-10.2); CARBON DIOXIDE LEVEL 24 MEQ/L (21-32); CHLORIDE LEVEL 111 MEQ/L (98-107); CREATININE FOR GFR 0.88 MG/DL (0.55-1.30); GLOMERULAR FILTRATION RATE > 60.0 (>45); GLUCOSE, FASTING 94 MG/DL (70-100); LIPASE 39 U/L (73-393); MAGNESIUM LEVEL 1.9 MG/DL (1.8-2.4); POTASSIUM SERUM 3.4 MEQ/L (3.5-5.1); SODIUM LEVEL 143 MEQ/L (136-145); TOTAL PROTEIN 4.7 GM/DL (6.4-8.2)
[2020-07-20 06:26] VITALS: BP 143/66
--- NOTE | 2020-07-20 07:56 | IPNPDOC ---
Date Seen The patient was seen on 07/20/20. Progress Note SUBJECTIVE: 4 loose stools overnight with abd cramping, making it difficult to sleep. no n/v/f/c/dizziness/lightheadedness. denies red blood or mucus in the diarrhea. OBJECTIVE: PHYSICAL EXAMINATION: VITALS: see below GEN: AAOx3 no respiratory distress.no pallor or icterus HEENT:anicteric, no jaundice face symmetric PERRL EOMI no thyromegaly no JVD, cervical LAD,poor dentition, dry mucus membranes, no sinus tenderness, no carotid bruits LUNGS:AEBE CTAB no wheezing, rales, or rhonchi. no adventitious breath sounds HEART:S1 S2 RRR no murmurs rubs or gallops ABD: obese soft nt nd no hsm no cva tenderness rebound or guarding no abd bruit EXT:2+ edema b/l LE LABORATORY DATA, IMAGING STUDIES, MICROBIOLOGY: SEE BELOW ASSESSMENT:60 y/o female was in her usual state of health until 01/24/2020 when she had a fall, and admitted to [facility] ,where she was found to have acute renal failure due to chronic diarrhea, transaminitis with negative hepatitis serology, diagnosed and treated for Cdiff with 14 days of oral vancomycin, subsequently discharged to [facility]. Since then, pt has been given macrobid for E coli cystitis x7 days, and cipro flagyl x 7days for diarrhea. She was referred to ID who recommended GI referral. Repeat Cdiff have been negative, and pt has been placed on fidaxomicin. Colonoscopy by Dr. Dyson: sigmoid diverticulosis, colon polyp, internal hemorrhoids, with biopsies to rule out microscopic colitis. Due to abnormal LFTs, LE edema, and 15lb weight loss with chronic diarrhea, hospitalist was called to admit for further workup. Pt previously had 10-12 loose stools with decreased appetite, abd cramping, generalized weakness, and 15 lb weight loss without n/v/fever, or chills, improved since xifaxan down to 5-7bm. Pt den ies bloody or mucusy stools, mouth ulcers, joint pain, or rash. COVID-19 negative. PROBLEMS: Chronic Diarrhea h/o cdiff and enteropathogenic Ecoli Transaminitis Hyperbilirubinemia Hypokalemia Hypoalbuminemia LE edema Adrenal Adenoma h/o PCOS 15 weight loss due to diarrhea sigmoid diverticulosis HTN borderline DM obesity BMI 43 Depression GERD chronic back pain leukocytosis Anemia, macrocytic PLAN: awaiting mrcp, doppler us of liver, echo. GI and ID consulted. wbc improved w xifaxan. await serology, blood work, obtain records from [employer] re: adenoma. compression stockings. once doppler of liver us is completed, may restart clears and advance depending on GI recommendations. VS, I&O, 24H, Fishbone Vital Signs/I&O Vital Signs Date Time Temp Pulse Resp B/P (MAP) Pulse Ox O2 Delivery O2 Flow Rate FiO2 07/20/20 06:26 99.2 88 20 143/66 (91) 96 Room Air I&O- Last 24 Hours up to 6 AM 07/20/20 06:00 Intake Total 660 ml Output Total 50 ml Balance 610 ml Laboratory Data 24H LABS Laboratory Tests 2 07/19/20 12:54: Immature Granulocyte % (Auto) 0.4, Neutrophils (%) (Auto) 75.6H, Lymphocytes (%) (Auto) 14.1L, Monocytes (%) (Auto) 7.1H, Eosinophils (%) (Auto) 2.2, Basophils (%) (Auto) 0.6, Neutrophils # (Auto) 14.0H, Lymphocytes # (Auto) 2.6, Monocytes # (Auto) 1.3H, Eosinophils # (Auto) 0.4, Basophils # (Auto) 0.1, Nucleated Red Blood Cells % (auto) 0.0, Prothrombin Time 16.8H, Prothromb Time International Ratio 1.33, Anion Gap 10, Glomerular Filtration Rate 59.3, Calcium Level 9.0, Iron Level 64, Total Iron Binding Capacity 147L, Transferrin % Saturation 43.5, Total Bilirubin 2.8H, Direct Bilirubin 2.0H, Aspartate Amino Transf (AST/SGOT) 111H, Alanine Aminotransferase (ALT/SGPT) 52, Alkaline Phosphatase 173H, Total Protein 5.6L, Albumin 2.2L, Albumin/Globulin Ratio 0.6L, Vitamin B12 Level 1922H, Hepatitis A IgM Antibody NEGATIVE, Hepatitis B Surface Antigen NEGATIVE, Hepatitis B Core IgM Antibody NEGATIVE, Hepatitis C Antibody Index 0.1 07/19/20 18:26: Vitamin B12 Level 1859H, Reticulocyte # (auto) 80.7H, Percent Reticulocyte Count 2.4H, Reticulocyte Hemoglobin Equivalent 35.7, Lactic Acid Level 1.8, Gamma Glutamyl Transferase 317H, Lactate Dehydrogenase 583H, C-Reactive Protein, Quantitative 3.83H, 25-Hydroxy Vitamin D Total 25.4L, Thyroid Stimulating Hormone (TSH) 9.060H, Free Thyroxine Index 4.1, Thyroxine (T4) 11.0, Triiodothyronine (T3) Uptake 37 07/19/20 20:33: Clostridium difficile [id number] PRESUMPTIVE NEGATIVE, Clostridium difficile Toxin (PCR) NEGATIVE 07/20/20 05:26: Immature Granulocyte % (Auto) 0.3, Neutrophils (%) (Auto) 69.5H, Lymphocytes (%) (Auto) 16.0L, Monocytes (%) (Auto) 8.9H, Eosinophils (%) (Auto) 4.6H, Basophils (%) (Auto) 0.7, Neutrophils # (Auto) 10.2H, Lymphocytes # (Auto) 2.3, Monocytes # (Auto) 1.3H, Eosinophils # (Auto) 0.7H, Basophils # (Auto) 0.1, Nucleated Red Blood Cells % (auto) 0.0, Anion Gap 8, Glomerular Filtration Rate > 60.0, Calcium Level 7.7L, Total Bilirubin 2.4H, Aspartate Amino Transf (AST/SGOT) 82H, Alanine Aminotransferase (ALT/SGPT) 41, Alkaline Phosphatase 141H, Total Protein 4.7L, Albumin 1.8L, Albumin/Globulin Ratio 0.6L, Magnesium Level 1.9, Lipase 39L CBC/BMP Laboratory Tests 07/19/20 12:54 07/19/20 18:26 07/20/20 05:26 Microbiology Microbiology 07/19/20 Campylobacter (PCR), Received Pending 07/19/20 Clostridium difficile Toxin A&B PCR, Received Pending 07/19/20 Plesiomonas shigelloides (PCR), Received Pending 07/19/20 Salmonella (PCR)(LUÍS), Received Pending 07/19/20 Vibrio Species (PCR), Received Pending 07/19/20 Vibrio Cholerae (PCR), Received Pending 07/19/20 Yersinia enterocolitica (PCR), Received Pending 07/19/20 Enteroaggregative E. coli (PCR), Received Pending 07/19/20 Enteropathogenic E. coli (PCR), Received Pending 07/19/20 Enterotoxigenic E. coli (PCR), Received Pending 07/19/20 E. coli Shiga-like Toxin (PCR), Received Pending 07/19/20 Escherichia coli 0157 (PCR), Received Pending 07/19/20 Enteroinvasive E. coli/Shigella PCR, Received Pending 07/19/20 Cryptosporidium (PCR), Received Pending 07/19/20 Cyclospora cayetanensis (PCR), Received Pending 07/19/20 Entamoeba histolytica (PCR), Received Pending 07/19/20 Giardia lamblia (PCR), Received Pending 07/19/20 Adenovirus Type F 40/41 (PCR), Received Pending 07/19/20 Astrovirus (PCR), Received Pending 07/19/20 Norovirus GI/GII (PCR), Received Pending 07/19/20 Rotavirus A (PCR), Received Pending 07/19/20 Sapovirus I/II/IV/V (PCR), Received Pending 07/19/20 Blood Culture, Received Pending 07/19/20 Blood Culture, Received Pending SANDRA DAWSON MD Jul 20, 2020 07:56
[2020-07-20] MEDS ORDERED: POTASSIUM CHLORIDE 10 MEQ SR TABLET PO ONE (08:00)
[2020-07-20] MEDS ORDERED: FLUBLOK(EGG FREE)(QUAD)INFLUENZA VACC 0.5ML SYRINGE 18YRS & OLDER IM ONE (09:00)
[2020-07-20] MEDS ORDERED: PNEUMOCOCCAL VACCINE 0.5ML SYRINGE (PNEUMOVAX 23) IM ONE (09:00)
[2020-07-20] MEDS: LACTOBACILLUS ACIDOPHILUS CAP (BACID) PO SCH ×4 (09:41→21:16)
[2020-07-20] MEDS: FAMOTIDINE 20 MG TAB PO SCH ×2 (09:41→21:16)
[2020-07-20] MEDS: rifAXIMin 550 MG TAB (XIFAXAN) PO SCH ×2 (09:41→21:16)
[2020-07-20 14:00] VITALS: BP 140/68
--- NOTE | 2020-07-20 14:05 | REP ---
INDICATION: edema abn LFTs. Upper and lower abdominal pain. COMPARISON: Comparison is made with KUB study from October 14, 2018. Comparison sonography January 22, 2006. Comparison MRI study April 13, 2020.. TECHNIQUE: Complete abdominal sonography is performed with portal venous Doppler assessment as requested. FINDINGS: There is mild ascites seen adjacent to the liver and spleen in the upper abdomen. Scanning through the right upper quadrant of the abdomen demonstrates irregularity of the gallbladder wall and a 4 mm polyp. A 6 mm polyp is also noted. MR imaging showed filling defects in the gallbladder lumen consistent with gallstones. These are not well seen by sonography. Common bile duct is normal measuring 0.6 cm in greatest diameter. Limited penetration of the liver is seen consistent with fatty infiltration of the liver. No focal liver lesion is appreciated. Scan quality is somewhat inhibited by patient body habitus. The pancreas is obscured by abdominal gas. The spleen measures 11.0 x 10.9 x 4.2 cm and is felt to be at the upper range of normal in size. No focal splenic lesion is seen. Normal caliber aorta is seen, 2.4 cm in AP diameter. There is no evidence of hydronephrosis on either side. The right kidney measures 9.3 x 4.6 x 4.3 cm. Left renal dimensions are 8.6 x 4.0 x 4.4 cm. Mesenteric Doppler assessment reversed, hepatofugal flow is observed within the portal vein and superior mesenteric vein. Splenic vein direction of flow is normal near the hilus. It is obscured by gas across the pancreas. Portal vein measures 12 mm in AP dimension. Reversed flow velocity in the portal vein 12.8 cm/s. There is portalization of the hepatic vein Doppler tracings. Hepatic arterial Doppler flow slightly elevated 191 cm/s. IMPRESSION: 1. Mild ascites. 2. Fatty infiltration of the liver. 3. Reversed flow in the portal vein and superior mesenteric vein. 4. Mildly prominent spleen. 5. Gallbladder wall polyps. Cholelithiasis is visible on prior MRI study. <Electronically signed by Laith Roblero > 07/20/20 [id number]
[2020-07-20 20:03] LABS: HIV 1&2 SCREEN CENTAUR NEGATIVE (NEGATIVE)
[2020-07-20] MEDS: SERTRALINE 100 MG TAB PO SCH (21:16)
[2020-07-20 22:00] VITALS: BP 157/87
--- NOTE | 2020-07-20 22:46 | REPVR ---
PROCEDURE INFORMATION: Exam: MR Abdomen Without Contrast Exam date and time: 07/20/2020 9:07 PM Age: 60 years old Clinical indication: Other: Abn lft's TECHNIQUE: Imaging protocol: MR of the abdomen without contrast. 3D rendering (Not supervised by radiologist): MIP and/or 3D reconstructed images were created by the technologist. COMPARISON: ABD COMPLETE US 07/20/2020 8:24 AM FINDINGS: Liver: There is uniform appearance of the liver. Gallbladder and bile ducts: It appears that there are as many as 30 small round gallstones within the gallbladder but not well seen on recent ultrasound. On the recent ultrasound there was thickening and nodularity of the gallbladder wall probably adenomyosis. There may be a 6 mm polyp at the anterior gallbladder wall. Prominent focal thickening of gallbladder may be polyp formation with a 1.5 cm x 5 mm focal area of thickening. Because of motion artifact this cannot be seen on the MRI and recommend a CT of the abdomen and pelvis with IV and oral contrast for further evaluation. Common bile duct is normal in size. Pancreas: Pancreas cannot be well evaluated by MRI because respiratory motion and peristalsis. Spleen: No splenomegaly. Kidneys and ureters: Not well seen. Intraperitoneal space: There is a very large amount of ascites throughout the abdomen. Bowel is floating anterior and medially secondary to the large ascites. IMPRESSION: 1. Very large amount of ascites throughout the abdomen. 2. Because of respiratory motion and peristalsis, pancreas is unable to be evaluated and recommend CT with IV and Oral contrast. 3. As many is 30 small gallstones mixed with sludge. 4. Severe adenomyosis of the gallbladder wall seen on recent ultrasound. 6 mm echogenic polyp within the gallbladder wall and prominent area of thickening and adenomyosis of gallbladder wall. This is not well seen on MRI and should be evaluated with CT abdomen and pelvis with IV and oral contrast. Electronically signed by: Obed Ruiz On 07/20/2020 22:46:29 PM
[2020-07-21 06:00] VITALS: BP 158/79
[2020-07-21 07:04] LABS: BASO # 0.1 10^3/uL (0.0-0.2); BASO % 0.9 % (0.0-1.0); EOS # 0.8 10^3/uL (0.0-0.5); EOS % 4.9 % (0.0-3.0); HEMATOCRIT 38.1 % (36.0-47.0); HEMOGLOBIN 11.9 g/dl (12.0-15.5); LYMPH # 2.3 10^3/uL (1.5-5.0); MEAN CORPUSCULAR HEMOGLOBIN 33.9 pg (27.0-33.0); MEAN CORPUSCULAR HGB CONC 31.2 g/dl (32.0-36.5); MEAN CORPUSCULAR VOLUME 108.5 fl (80.0-96.0); MONO # 1.2 10^3/uL (0.0-0.8); MONO % 7.6 % (0.0-5.0); NEUTROPHILS # 11.1 10^3/uL (1.5-8.5); NEUTROPHILS % 71.2 % (36.0-66.0); PLATELET COUNT, AUTOMATED 254 10^3/uL (150-450); RED BLOOD COUNT 3.51 10^6/uL (4.00-5.40); WHITE BLOOD COUNT 15.6 10^3/uL (4.0-10.0)
[2020-07-21 07:32] LABS: ALBUMIN 2.1 GM/DL (3.2-5.2); ALT/SGPT 46 U/L (12-78); BILIRUBIN,TOTAL 2.7 MG/DL (0.2-1.0); BLOOD UREA NITROGEN 8 MG/DL (7-18); CALCIUM LEVEL 8.4 MG/DL (8.8-10.2); CARBON DIOXIDE LEVEL 23 MEQ/L (21-32); CHLORIDE LEVEL 110 MEQ/L (98-107); CREATININE FOR GFR 0.97 MG/DL (0.55-1.30); GLOMERULAR FILTRATION RATE > 60.0 (>45); GLUCOSE, FASTING 90 MG/DL (70-100); LIPASE 60 U/L (73-393); MAGNESIUM LEVEL 1.8 MG/DL (1.8-2.4); POTASSIUM SERUM 3.5 MEQ/L (3.5-5.1); SODIUM LEVEL 142 MEQ/L (136-145); TOTAL PROTEIN 5.5 GM/DL (6.4-8.2)
[2020-07-21] MEDS: LACTOBACILLUS ACIDOPHILUS CAP (BACID) PO SCH ×4 (08:20→20:50)
[2020-07-21] MEDS: FAMOTIDINE 20 MG TAB PO SCH ×2 (08:20→20:50)
[2020-07-21] MEDS: rifAXIMin 550 MG TAB (XIFAXAN) PO SCH ×2 (08:20→20:51)
[2020-07-21] MEDS ORDERED: metOLazone 2.5 MG TAB PO ONE (09:00)
--- NOTE | 2020-07-21 09:18 | IPNPDOC ---
Date Seen The patient was seen on 07/21/20. Progress Note SUBJECTIVE: pt did not inform RN of persisten diarrhea. 2 loose stools last night and 1 this am. no c/o dizziness, abd cramping,n/v. no fever/chills. no c/o sob. still w 2+ LE edema and abd fullness. OBJECTIVE: PHYSICAL EXAMINATION: VITALS: see below GEN: AAOx3 no respiratory distress.no pallor or icterus, cooperative,and pleasant, normal affect HEENT:anicteric, no jaundice face symmetric PERRL EOMI no thyromegaly no JVD, cervical LAD,poor dentition, dry mucus membranes, no sinus tenderness, no carotid bruits LUNGS:AEBE CTAB no wheezing, rales, or rhonchi. no adventitious breath sounds HEART:S1 S2 RRR no murmurs rubs or gallops ABD: obese soft nt nd no hsm no cva tenderness rebound or guarding no abd bruit EXT:2+ edema b/l LE LABORATORY DATA, IMAGING STUDIES, MICROBIOLOGY: SEE BELOW ASSESSMENT:60 y/o female was in her usual state of health until 01/24/2020 when she had a fall, and admitted to [facility] ,where she was found to have acute renal failure due to chronic diarrhea, transaminitis with negative hepatitis serology, diagnosed and treated for Cdiff with 14 days of oral vancomycin, subsequently discharged to [facility]. Since then, pt has been given macrobid for E coli cystitis x7 days, and cipro flagyl x 7days for diarrhea. She was referred to ID who recommended GI referral. Repeat Cdiff have been negative, and pt has been placed on fidaxomicin. Colonoscopy by Dr. Dyson: sigmoid diverticulosis, colon polyp, internal hemorrhoids, with biopsies to rule out microscopic colitis. Due to abnormal LFTs, LE edema, and 15lb weight loss with chronic diarrhea, hospitalist was called to admit for further workup. Pt previously had 10-12 loose stools with decreased appetite, abd cramping, generalized weakness, and 15 lb weight loss without n/v/fever, or chills, improved since xifaxan down to 5-7bm. Pt denies bloody or mucusy stools, mouth ulcers, joint pain, or rash. COVID-19 negative. PROBLEMS: Chronic Diarrhea h/o cdiff and enteropathogenic Ecoli Anasarca Transaminitis Hyperbilirubinemia Hypokalemia Hypoalbuminemia LE edema Adrenal Adenoma h/o PCOS 15 weight loss due to diarrhea sigmoid diverticulosis HTN borderline DM obesity BMI 43 Depression GERD chronic back pain leukocytosis Anemia, macrocytic PLAN: doppler US liver negative for portal vein thrombosis, MRCP negative for strictures, or choledocholithiasis, ECHO still pending. Serology and immunologic tests are still pending. Pt is medically stable, and awaiting diuresis and echo report. placed on strict i/o , fluid restriction, and aggressive diuresis today. continue LFT surveillance, and if trending down or plateaus, may dc Thursday or Thursday after diuresing to net negative balance. lomotil and xifaxan. await further recommendations from ID and GI. VS, I&O, 24H, Fishbone Vital Signs/I&O Vital Signs Date Time Temp Pulse Resp B/P (MAP) Pulse Ox O2 Delivery O2 Flow Rate FiO2 07/21/20 06:00 98.3 91 18 158/79 (105) 96 Room Air I&O- Last 24 Hours up to 6 AM 07/21/20 06:00 Intake Total 420 ml Output Total 100 ml Balance 320 ml Laboratory Data 24H LABS Laboratory Tests 2 07/21/20 06:47: Immature Granulocyte % (Auto) 0.4, Neutrophils (%) (Auto) 71.2H, Lymphocytes (%) (Auto) 15.0L, Monocytes (%) (Auto) 7.6H, Eosinophils (%) (Auto) 4.9H, Basophils (%) (Auto) 0.9, Neutrophils # (Auto) 11.1H, Lymphocytes # (Auto) 2.3, Monocytes # (Auto) 1.2H, Eosinophils # (Auto) 0.8H, Basophils # (Auto) 0.1, Nucleated Red Blood Cells % (auto) 0.0, Anion Gap 9, Glomerular Filtration Rate > 60.0, Calcium Level 8.4L, Magnesium Level 1.8, Total Bilirubin 2.7H, Aspartate Amino Transf (AST/SGOT) 90H, Alanine Aminotransferase (ALT/SGPT) 46, Alkaline Phosphatase 159H, Total Protein 5.5L, Albumin 2.1L, Albumin/Globulin Ratio 0.6L, Lipase 60L CBC/BMP Laboratory Tests 07/21/20 06:47 Microbiology Microbiology 07/19/20 Campylobacter (PCR), Received Pending 07/19/20 Clostridium difficile Toxin A&B PCR, Received Pending 07/19/20 Plesiomonas shigelloides (PCR), Received Pending 07/19/20 Salmonella (PCR)(LUÍS), Received Pending 07/19/20 Vibrio Species (PCR), Received Pending 07/19/20 Vibrio Cholerae (PCR), Received Pending 07/19/20 Yersinia enterocolitica (PCR), Received Pending 07/19/20 Enteroaggregative E. coli (PCR), Received Pending 07/19/20 Enteropathogenic E. coli (PCR), Received Pending 07/19/20 Enterotoxigenic E. coli (PCR), Received Pending 07/19/20 E. coli Shiga-like Toxin (PCR), Received Pending 07/19/20 Escherichia coli 0157 (PCR), Received Pending 07/19/20 Enteroinvasive E. coli/Shigella PCR, Received Pending 07/19/20 Cryptosporidium (PCR), Received Pending 07/19/20 Cyclospora cayetanensis (PCR), Received Pending 07/19/20 Entamoeba histolytica (PCR), Received Pending 07/19/20 Giardia lamblia (PCR), Received Pending 07/19/20 Adenovirus Type F 40/41 (PCR), Received Pending 07/19/20 Astrovirus (PCR), Received Pending 07/19/20 Norovirus GI/GII (PCR), Received Pending 07/19/20 Rotavirus A (PCR), Received Pending 07/19/20 Sapovirus I/II/IV/V (PCR), Received Pending 07/19/20 Blood Culture - Preliminary, Resulted No growth after 24 hours . All specim... 07/19/20 Blood Culture - Preliminary, Resulted No growth after 24 hours . All specim... SANDRA DAWSON MD Jul 21, 2020 09:17
[2020-07-21] MEDS ORDERED: FUROSEMIDE 40MG/4ML VIAL (J1940) IV ONE (09:30)
[2020-07-21 14:08] VITALS: BP 161/87
[2020-07-21 16:31] LABS: IONIZED CALCIUM 4.1 MG/DL (4.5-5.3)
[2020-07-21 16:58] LABS: CALCIUM LEVEL 8.2 MG/DL (8.8-10.2); CREATININE FOR GFR 1.11 MG/DL (0.55-1.30); GLOMERULAR FILTRATION RATE 53.2 (>45); MAGNESIUM LEVEL 1.9 MG/DL (1.8-2.4); POTASSIUM SERUM 3.6 MEQ/L (3.5-5.1)
[2020-07-21] MEDS: SERTRALINE 100 MG TAB PO SCH (20:50)
[2020-07-21] MEDS: METOPROLOL TART 25 MG TABLET PO SCH (21:59)
[2020-07-21 22:00] VITALS: BP 155/88
[2020-07-21 22:51] LABS: CREATININE, URINE 74.8 MG/DL; MALB URINE SIEMENS < 5.0 MG/L; MAU/CREAT RATIO 6.6 MCG/MG (0.0-30.0)
[2020-07-22 06:00] VITALS: BP 115/60
[2020-07-22 06:42] LABS: BASO # 0.1 10^3/uL (0.0-0.2); BASO % 0.7 % (0.0-1.0); EOS # 0.7 10^3/uL (0.0-0.5); HEMATOCRIT 35.1 % (36.0-47.0); HEMOGLOBIN 11.2 g/dl (12.0-15.5); LYMPH # 2.7 10^3/uL (1.5-5.0); LYMPH % 19.2 % (24.0-44.0); MEAN CORPUSCULAR HGB CONC 31.9 g/dl (32.0-36.5); MEAN CORPUSCULAR VOLUME 106.7 fl (80.0-96.0); MONO # 1.2 10^3/uL (0.0-0.8); MONO % 8.3 % (0.0-5.0); NEUTROPHILS # 9.5 10^3/uL (1.5-8.5); NEUTROPHILS % 66.5 % (36.0-66.0); PLATELET COUNT, AUTOMATED 248 10^3/uL (150-450); RED BLOOD COUNT 3.29 10^6/uL (4.00-5.40); WHITE BLOOD COUNT 14.3 10^3/uL (4.0-10.0)
[2020-07-22 07:03] LABS: BILIRUBIN,TOTAL 2.5 MG/DL (0.2-1.0); CALCIUM LEVEL 8.2 MG/DL (8.8-10.2); MAGNESIUM LEVEL 1.7 MG/DL (1.8-2.4)
[2020-07-22] MEDS ORDERED: metOLazone 5 MG TAB PO ONE ×2 (08:00→18:30)
[2020-07-22] MEDS ORDERED: MAG SULF 1GM/100ML (MAG RUN) 1 GM in IV 1 EA IV ONE ×2 (08:00→18:30)
[2020-07-22] MEDS: LACTOBACILLUS ACIDOPHILUS CAP (BACID) PO SCH ×4 (08:04→21:21)
[2020-07-22] MEDS: FAMOTIDINE 20 MG TAB PO SCH ×2 (08:05→21:21)
[2020-07-22] MEDS: rifAXIMin 550 MG TAB (XIFAXAN) PO SCH ×2 (08:05→21:22)
[2020-07-22] MEDS: METOPROLOL TART 25 MG TABLET PO SCH ×2 (08:34→21:00)
--- NOTE | 2020-07-22 08:41 | IPNPDOC ---
Date Seen The patient was seen on 07/22/20. Progress Note SUBJECTIVE: pt did not inform RN of persisten diarrhea. 2 loose stools last night and 1 this am. no c/o dizziness, abd cramping,n/v. no fever/chills. no c/o sob. still w 2+ LE edema and abd fullness. SUBJECTIVE: 1 formed BM this morning. denies n/v/abd pain/fever/chills/dysuria/cough/sob. diuresed 2liters out and net negative overnight. us:ascites echo pending report. no c/o thirst, lightheadedness or dizziness today. OBJECTIVE: PHYSICAL EXAMINATION: VITALS: see below GEN: AAOx3 no respiratory distress.no pallor or icterus, cooperative,and pleasant, normal affect HEENT: slight icterus face symmetric PERRL EOMI no thyromegaly no JVD, cervical LAD,poor dentition, moist mucus membranes no sinus tenderness, no carotid bruits LUNGS:AEBE CTAB no wheezing, rales, or rhonchi. no adventitious breath sounds HEART:S1 S2 RRR no murmurs rubs or gallops ABD: obese soft nt nd no hsm no cva tenderness rebound or guarding no abd bruit EXT:1+ edema b/l LE LABORATORY DATA, IMAGING STUDIES, MICROBIOLOGY: SEE BELOW ASSESSMENT:60 y/o female was in her usual state of health until 020 when she had a fall, and admitted to [facility] ,where she was found to have acute renal failure due to chronic diarrhea, transaminitis with negative hepatitis serology, diagnosed and treated for Cdiff with 14 days of oral vancomycin, subsequently discharged to [facility]. Since then, pt has been given macrobid for E coli cystitis x7 days, and cipro flagyl x 7days for diarrhea. She was referred to ID who recommended GI referral. Repeat Cdiff have been negative, and pt has been placed on fidaxomicin. Colonoscopy by Dr. Dyson: sigmoid diverticulosis, colon polyp, internal hemorrhoids, with biopsies to rule out microscopic colitis. Due to abnormal LFTs, LE edema, and 15lb weight loss with chronic diarrhea, hospitalist was called to admit for further workup. Pt previously had 10-12 loose stools with decreased appetite, abd cramping, generalized weakness, and 15 lb weight loss without n/v/fever, or chills, improved since xifaxan down to 5-7bm. Pt denies bloody or mucusy stools, mouth ulcers, joint pain, or rash. COVID-19 negative. PROBLEMS: Chronic Diarrhea h/o cdiff and enteropathogenic Ecoli Anasarca Transaminitis Hyperbilirubinemia Hypokalemia Hypoalbuminemia LE edema r/o nephrotic syndrome, chf Adrenal Adenoma h/o PCOS 15 weight loss due to diarrhea sigmoid diverticulosis HTN borderline DM obesity BMI 43 Depression GERD chronic back pain leukocytosis Anemia, macrocytic PLAN: continue with lasix diuresis, and await echo report. serologies and workup for hyperbilirubinemia still pending. cultures negative so far with improving wbc on xifaxan, with no loose stools overnight. no fever. await further recommendations from ID and GI. DC in am if stable overnight once echo report is available. VS, I&O, 24H, Fishbone Vital Signs/I&O Vital Signs Date Time Temp Pulse Resp B/P (MAP) Pulse Ox O2 Delivery O2 Flow Rate FiO2 07/22/20 08:34 86 128/80 07/22/20 06:00 98.0 18 96 Room Air I&O- Last 24 Hours up to 6 AM 07/22/20 06:00 Intake Total 1470 ml Output Total 2335 ml Balance -865 ml Laboratory Data 24H LABS Laboratory Tests 2 07/21/20 16:23: Anion Gap 11, Glomerular Filtration Rate 53.2, Calcium Level 8.2L, Whole Blood Ionized Calcium 4.1L, Magnesium Level 1.9 07/21/20 22:05: Urine Color YELLOW, Urine Appearance CLEAR, Urine pH 5.0, Urine Specific Hatch 1.011, Urine Protein NEGATIVE, Urine Glucose (UA) NEGATIVE, Urine Ketones NEGATIVE, Urine Blood NEGATIVE, Urine Nitrite NEGATIVE, Urine Bilirubin NEGATIVE, Urine Urobilinogen 0.2, Urine Leukocyte Esterase NEGATIVE, Urine WBC (Auto) 2, Urine RBC (Auto) 1, Urine Hyaline Casts (Auto) 68, Urine Bacteria (Auto) NEGATIVE, Urine Squamous Epithelial Cells 1, Urine Mucus (Auto) SMALL, Urine Sperm (Auto) , Urine Creatinine 74.8, Urine Microalbumin < 5.0, Urine Microalbumin/Creatinine Ratio 6.6 07/22/20 06:11: Anion Gap 8, Glomerular Filtration Rate 60.0, Calcium Level 8.2L, Magnesium Level 1.7L, Immature Granulocyte % (Auto) 0.3, Neutrophils (%) (Auto) 66.5H, Lymphocytes (%) (Auto) 19.2L, Monocytes (%) (Auto) 8.3H, Eosinophils (%) (Auto) 5.0H, Basophils (%) (Auto) 0.7, Neutrophils # (Auto) 9.5H, Lymphocytes # (Auto) 2.7, Monocytes # (Auto) 1.2H, Eosinophils # (Auto) 0.7H, Basophils # (Auto) 0.1, Nucleated Red Blood Cells % (auto) 0.0, Total Bilirubin 2.5H, Aspartate Amino Transf (AST/SGOT) 76H, Alanine Aminotransferase (ALT/SGPT) 43, Alkaline Phosphatase 148H, Total Protein 5.0L, Albumin 2.0L, Albumin/Globulin Ratio 0.7L, Lipase 64L CBC/BMP Laboratory Tests 07/21/20 16:23 07/22/20 06:11 Microbiology Microbiology 07/19/20 Campylobacter (PCR), Received Pending 07/19/20 Clostridium difficile Toxin A&B PCR, Received Pending 07/19/20 Plesiomonas shigelloides (PCR), Received Pending 07/19/20 Salmonella (PCR)(LUÍS), Received Pending 07/19/20 Vibrio Species (PCR), Received Pending 07/19/20 Vibrio Cholerae (PCR), Received Pending 07/19/20 Yersinia enterocolitica (PCR), Received Pending 07/19/20 Enteroaggregative E. coli (PCR), Received Pending 07/19/20 Enteropathogenic E. coli (PCR), Received Pending 07/19/20 Enterotoxigenic E. coli (PCR), Received Pending 07/19/20 E. coli Shiga-like Toxin (PCR), Received Pending 07/19/20 Escherichia coli 0157 (PCR), Received Pending 07/19/20 Enteroinvasive E. coli/Shigella PCR, Received Pending 07/19/20 Cryptosporidium (PCR), Received Pending 07/19/20 Cyclospora cayetanensis (PCR), Received Pending 07/19/20 Entamoeba histolytica (PCR), Received Pending 07/19/20 Giardia lamblia (PCR), Received Pending 07/19/20 Adenovirus Type F 40/41 (PCR), Received Pending 07/19/20 Astrovirus (PCR), Received Pending 07/19/20 Norovirus GI/GII (PCR), Received Pending 07/19/20 Rotavirus A (PCR), Received Pending 07/19/20 Sapovirus I/II/IV/V (PCR), Received Pending 07/19/20 Blood Culture - Preliminary, Resulted No Growth after 48 hours. All Specime... 07/19/20 Blood Culture - Preliminary, Resulted No Growth after 48 hours. All Specime... SANDRA DAWSON MD Jul 22, 2020 08:41
[2020-07-22] MEDS: FUROSEMIDE 40MG/4ML VIAL (J1940) IV SCH ×3 (08:47→21:21)
[2020-07-22] MEDS ORDERED: POTASSIUM CHLORIDE 10 MEQ SR TABLET PO SCH (09:00)
[2020-07-22 14:47] VITALS: BP 124/68
[2020-07-22 17:06] LABS: CALCIUM LEVEL 8.2 MG/DL (8.8-10.2); CREATININE FOR GFR 1.1 MG/DL (0.55-1.30); FREE THYROXINE INDEX 3.6 % (1.3-4.8); GLOMERULAR FILTRATION RATE 53.8 (>45); MAGNESIUM LEVEL 1.9 MG/DL (1.8-2.4); POTASSIUM SERUM 3.1 MEQ/L (3.5-5.1); THYROID STIMULATING HORMONE 8.15 uIU/ML (0.358-3.740); THYROXINE (T4) 10.6 UG/DL (4.5-12.0)
[2020-07-22] MEDS ORDERED: POTASSIUM CHLORIDE 10 MEQ SR TABLET PO ONE (18:30)
[2020-07-22] MEDS: SERTRALINE 100 MG TAB PO SCH (21:21)
[2020-07-22] MEDS: SPIRONOLACTONE 25 MG TAB PO SCH (21:22)
[2020-07-22 22:00] VITALS: BP 128/73
[2020-07-23 06:00] VITALS: BP 113/69
[2020-07-23 07:01] LABS: BASO # 0.1 10^3/uL (0.0-0.2); BASO % 0.7 % (0.0-1.0); EOS # 0.8 10^3/uL (0.0-0.5); EOS % 4.9 % (0.0-3.0); HEMATOCRIT 35.9 % (36.0-47.0); HEMOGLOBIN 11.5 g/dl (12.0-15.5); LYMPH # 2.5 10^3/uL (1.5-5.0); LYMPH % 16.5 % (24.0-44.0); MEAN CORPUSCULAR HEMOGLOBIN 33.6 pg (27.0-33.0); MONO # 1.4 10^3/uL (0.0-0.8); NEUTROPHILS # 10.5 10^3/uL (1.5-8.5); NEUTROPHILS % 68.5 % (36.0-66.0); PLATELET COUNT, AUTOMATED 255 10^3/uL (150-450); RED BLOOD COUNT 3.42 10^6/uL (4.00-5.40); WHITE BLOOD COUNT 15.4 10^3/uL (4.0-10.0)
[2020-07-23 07:27] LABS: ALBUMIN 2.3 GM/DL (3.2-5.2); CREATININE FOR GFR 1.2 MG/DL (0.55-1.30); GLOMERULAR FILTRATION RATE 48.6 (>45); TOTAL PROTEIN 5.4 GM/DL (6.4-8.2)
[2020-07-23] MEDS: LACTOBACILLUS ACIDOPHILUS CAP (BACID) PO SCH ×4 (08:06→21:07)
[2020-07-23] MEDS: rifAXIMin 550 MG TAB (XIFAXAN) PO SCH ×2 (08:06→21:06)
[2020-07-23] MEDS: FAMOTIDINE 20 MG TAB PO SCH ×2 (08:06→21:06)
[2020-07-23] MEDS: METOPROLOL TART 25 MG TABLET PO SCH ×2 (08:07→21:00)
[2020-07-23] MEDS ORDERED: POTASSIUM CHLORIDE 10 MEQ SR TABLET PO SCH (09:00)
--- NOTE | 2020-07-23 09:08 | IPNPDOC ---
Date Seen The patient was seen on 07/23/20. Progress Note SUBJECTIVE: formed stools now, no fever/chills/n/v/abd pain/cough/dysuria. gi panel blood cx negative. diuresed well overnight, with net negative balance. decreased discomfort in b/l LE and less f ullness in right flank per pt. no MARIE, PND, or orthopnea. awaiting 2decho OBJECTIVE: PHYSICAL EXAMINATION: VITALS: see below GEN: AAOx3 no respiratory distress. slight icterus cooperative,and pleasant, normal affect HEENT: slight jaundice face symmetric PERRL EOMI no thyromegaly no JVD, cervical LAD,poor dentition, moist mucus membranes no sinus tenderness, no carotid bruits LUNGS:AEBE CTAB no wheezing, rales, or rhonchi. no adventitious breath sounds HEART:S1 S2 RRR no murmurs rubs or gallops ABD: obese soft nt nd no hsm no cva tenderness rebound or guarding no abd bruit EXT:1+ edema b/l LE, decreased LABORATORY DATA, IMAGING STUDIES, MICROBIOLOGY: SEE BELOW ASSESSMENT:60 y/o female was in her usual state of health until 01/24/2020 when she had a fall, and admitted to [facility] ,where she was found to have acute renal failure due to chronic diarrhea, transami nitis with negative hepatitis serology, diagnosed and treated for Cdiff with 14 days of oral vancomycin, subsequently discharged to [facility]. Since then, pt has been given macrobid for E coli cystitis x7 days, and cipro flagyl x 7days for diarrhea. She was referred to ID who recommended GI referral. Repeat Cdiff have been negative, and pt has been placed on fidaxomicin. Colonoscopy by Dr. Dyson: sigmoid diverticulosis, colon polyp, internal hemorrhoids, with biopsies to rule out microscopic colitis. Due to abnormal LFTs, LE edema, and 15lb weight loss with chronic diarrhea, hospitalist was called to admit for further workup. Pt previously had 10-12 loose stools with decreased appetite, abd cramping, generalized weakness, and 15 lb weight loss without n/v/fever, or chills, improved since xifaxan down to 5-7bm. Pt denies bloody or mucusy stools, mouth ulcers, joint pain, or rash. COVID-19 negative. 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 diuresing well w lasix, awaiting echo report. still awaiting immunologic tests. if no further recommendaations from ID and GI, consider dc home today or in am if echo available.continue xifaxan gi panel neg defer to id for abx choice. VS, I&O, 24H, Fishbone Vital Signs/I&O Vital Signs Date Time Temp Pulse Resp B/P (MAP) Pulse Ox O2 Delivery O2 Flow Rate FiO2 07/23/20 08:07 80 115/70 07/23/20 06:00 97.9 18 98 Room Air I&O- Last 24 Hours up to 6 AM 07/23/20 06:00 Intake Total 750 ml Output Total 3825 ml Balance -3075 ml Laboratory Data 24H LABS Laboratory Tests 2 07/22/20 16:20: Anion Gap 12, Glomerular Filtration Rate 53.8, Calcium Level 8.2L, Magnesium Level 1.9, Thyroid Stimulating Hormone (TSH) 8.150H, Free Thyroxine Index 3.6, Thyroxine (T4) 10.6, Triiodothyronine (T3) Uptake 34 07/23/20 06:36: Anion Gap 8, Glomerular Filtration Rate 48.6, Calcium Level 8.0L, Magnesium Level 2.0, Immature Granulocyte % (Auto) 0.4, Neutrophils (%) (Auto) 68.5H, Lymphocytes (%) (Auto) 16.5L, Monocytes (%) (Auto) 9.0H, Eosinophils (%) (Auto) 4.9H, Basophils (%) (Auto) 0.7, Neutrophils # (Auto) 10.5H, Lymphocytes # (Auto) 2.5, Monocytes # (Auto) 1.4H, Eosinophils # (Auto) 0.8H, Basophils # (Auto) 0.1, Nucleated Red Blood Cells % (auto) 0.0, Total Bilirubin 3.0H, Aspartate Amino Transf (AST/SGOT) 81H, Alanine Aminotransferase (ALT/SGPT) 44, Alkaline Phosphatase 152H, Total Protein 5.4L, Albumin 2.3L, Albumin/Globulin Ratio 0.7L, Lipase 60L CBC/BMP Laboratory Tests 07/22/20 16:20 07/23/20 06:36 Microbiology Microbiology 07/19/20 Campylobacter (PCR) - Final, Complete 07/19/20 Clostridium difficile Toxin A&B PCR - Final, Complete 07/19/20 Plesiomonas shigelloides (PCR) - Final, Complete 07/19/20 Salmonella (PCR)(LUÍS) - Final, Complete 07/19/20 Vibrio Species (PCR) - Final, Complete 07/19/20 Vibrio Cholerae (PCR) - Final, Complete 07/19/20 Yersinia enterocolitica (PCR) - Final, Complete 07/19/20 Enteroaggregative E. coli (PCR) - Final, Complete 07/19/20 Enteropathogenic E. coli (PCR) - Final, Complete 07/19/20 Enterotoxigenic E. coli (PCR) - Final, Complete 07/19/20 E. coli Shiga-like Toxin (PCR) - Final, Complete 07/19/20 Escherichia coli 0157 (PCR) - Final, Complete 07/19/20 Enteroinvasive E. coli/Shigella PCR - Final, Complete 07/19/20 Cryptosporidium (PCR) - Final, Complete 07/19/20 Cyclospora cayetanensis (PCR) - Final, Complete 07/19/20 Entamoeba histolytica (PCR) - Final, Complete 07/19/20 Giardia lamblia (PCR) - Final, Complete 07/19/20 Adenovirus Type F 40/41 (PCR) - Final, Complete 07/19/20 Astrovirus (PCR) - Final, Complete 07/19/20 Norovirus GI/GII (PCR) - Final, Complete 07/19/20 Rotavirus A (PCR) - Final, Complete 07/19/20 Sapovirus I/II/IV/V (PCR) - Final, Complete 07/19/20 Blood Culture - Preliminary, Resulted No Growth after 72 hours. All specime... 07/19/20 Blood Culture - Preliminary, Resulted No Growth after 72 hours. All specime... SANDRA DAWSON MD Jul 23, 2020 09:08
[2020-07-23] MEDS ORDERED: PILL CUTTER 1 EACH XX PRN (09:45)
[2020-07-23] MEDS ORDERED: metOLazone 5 MG TAB PO ONE (10:00)
[2020-07-23] MEDS: FUROSEMIDE 40MG/4ML VIAL (J1940) IV SCH ×3 (10:51→22:15)
[2020-07-23 14:15] VITALS: BP 118/70
[2020-07-23] MEDS: SERTRALINE 100 MG TAB PO SCH (21:06)
[2020-07-23] MEDS: SPIRONOLACTONE 25 MG TAB PO SCH (21:06)
[2020-07-23] MEDS: POTASSIUM CHLORIDE 10 MEQ SR TABLET PO SCH (21:06)
[2020-07-23 22:00] VITALS: BP 115/56
[2020-07-24 05:31] LABS: BASO # 0.1 10^3/uL (0.0-0.2); BASO % 0.7 % (0.0-1.0); EOS # 0.6 10^3/uL (0.0-0.5); EOS % 4.2 % (0.0-3.0); HEMATOCRIT 35.7 % (36.0-47.0); HEMOGLOBIN 11.3 g/dl (12.0-15.5); LYMPH # 2.9 10^3/uL (1.5-5.0); LYMPH % 19.1 % (24.0-44.0); MEAN CORPUSCULAR HEMOGLOBIN 32.8 pg (27.0-33.0); MEAN CORPUSCULAR HGB CONC 31.7 g/dl (32.0-36.5); MEAN CORPUSCULAR VOLUME 103.8 fl (80.0-96.0); MONO # 1.4 10^3/uL (0.0-0.8); MONO % 9.2 % (0.0-5.0); NEUTROPHILS % 66.3 % (36.0-66.0); PLATELET COUNT, AUTOMATED 270 10^3/uL (150-450); RED BLOOD COUNT 3.44 10^6/uL (4.00-5.40)
[2020-07-24 05:41] LABS: INR 1.45
[2020-07-24 05:42] LABS: PARTIAL THROMBOPLASTIN TIME 38.4 SECONDS (24.2-38.5)
[2020-07-24 05:58] LABS: ALBUMIN 2.2 GM/DL (3.2-5.2); BILIRUBIN,TOTAL 2.9 MG/DL (0.2-1.0); CALCIUM LEVEL 8.6 MG/DL (8.8-10.2); CREATININE FOR GFR 1.27 MG/DL (0.55-1.30); GLOMERULAR FILTRATION RATE 45.5 (>45); MAGNESIUM LEVEL 1.7 MG/DL (1.8-2.4); POTASSIUM SERUM 2.8 MEQ/L (3.5-5.1); TOTAL PROTEIN 5.5 GM/DL (6.4-8.2)
[2020-07-24 06:00] VITALS: BP 112/55
[2020-07-24] MEDS: MAG SULF 1GM/100ML (MAG RUN) 1 GM in IV 1 EA IV SCH ×3 (06:27→12:00)
[2020-07-24] MEDS ORDERED: POTASSIUM CHLORIDE 10 MEQ SR TABLET PO ONE (06:30)
--- NOTE | 2020-07-24 07:51 | ECHO ---
DATE OF PROCEDURE: 07/20/2020 Age: 60 Gender: Female REFERRING PHYSICIAN: Dr. Evelyn Boyer PATIENT LOCATION: [place] [address] REASON FOR THE STUDY: Pedal edema MEASUREMENTS: 2D measurements: IVS 1.3 cm LV 3.4 cm LVPW 1.3 cm LA 3.5 cm Aorta 3.8 cm IVC 1.5 cm DOPPLER MEASURMENT: Peak velocity across the aortic valve 1.7 meters per second Peak velocity across the LVOT 1.4 meters per second Mitral E 0.9, mitral A 0.9 with a ratio of 1.0 Maximum tricuspid jet velocity 2.1 meters per second 2D COMMENTS: 1. Normal left ventricular size with a mildly increased left ventricular wall thickness and a normal global left ventricular systolic function. Estimated left ventricular systolic ejection fraction is 60 to 65%. 2. Normal left atrium. Normal right atrium and right ventricle. 3. The atrial septum appears to be normal without evidence of defect or shunt. 4. Normal aortic root. 5. No pericardial effusion seen. 6. Minimal calcified aortic valve with normal leaflet excursion. Normal mitral valve, tricuspid valve and pulmonic valve. The proximal pulmonary artery branches were not visualized. 7. The inferior vena cava was normal in size, central venous pressure is most likely normal. DOPPLER: No significant Doppler abnormalities detected, but trace tricuspid regurgitation. The calculated pulmonary artery systolic pressure was normal. Trivial aortic stenosis also detected. IMPRESSION: 1. Normal global left ventricular systolic function with mild concentric left ventricular hypertrophy. There are features of left ventricular diastolic dysfunction, grade 1. Aortic valve sclerosis with trivial aortic stenosis, but no aortic regurgitation. 2. Trace tricuspid regurgitation with a normal calculated pulmonary artery systolic pressure. 3. No findings in this transthoracic echocardiogram that could explain the edema. MTDD
[2020-07-24] MEDS: KCL 10MEQ/100ML SWI (KRUN) 10 MEQ in IV 1 EA IV SCH ×4 (08:00→15:13)
--- NOTE | 2020-07-24 08:14 | CR ---
DATE OF CONSULTATION: 07/20/2020 Asked to consult by Dr. Boyer for evaluation of leukocytosis, abdominal pain, and diarrhea. HISTORY OF PRESENT ILLNESS: Lauren is a pleasant 60-year-old female who has been struggling with abdominal pain and diarrhea for about 10-month duration. She recalls having diarrhea since September of 2019. She was hospitalized in January at [place] to the intensive care unit due to severe hyponatremia and hypokalemia from chronic diarrhea with acute kidney injury and elevated liver function tests. During that hospitalization, she tested positive for Clostridium (C) difficile and was treated in the ICU for 3 days and then transferred to rehabilitation at [facility] for a couple weeks. The patient has a history of multiple antibiotic uses. In September 2019 she was treated with Levaquin for 10 days for what she reported as having a urinary tract infection (UTI) and then had diarrhea after. On 02/15/2020, she had a urinary tract infection with blood in her urine and received nitrofurantoin for 7 days. On 02/21/2020, she had persistent diarrhea and was treated with Flagyl for 7 days. I saw her the first time on March 08, when she had a repeat stool study done, which was negative for C. difficile, but the patient was still having diarrhea. I recommended that she be monitored, but her diarrhea persisted for the next couple months. She had two specimens that were negative but potassium for enteropathogenic Escherichia (E) coli. The patient had leukocytosis, abnormal liver function tests, anorexia, and diarrhea. In May she was seen and again had a negative C. difficile. I tried to obtain Xifaxan for treatment of irritable bowel syndrome with predominant diarrhea and for possibly enteropathogenic E. coli, and that was approved 3 weeks later, and she started using Xifaxan on Thursday, July 14. She noticed after she used Xifaxan her diarrhea improved for a couple days. Then she was scheduled to have her colonoscopy and had to take her prep, and the diarrhea came back. She denies any fever, chills, or night sweats. She has 15- pound weight loss. She denies any nausea or vomiting. She denies any risk factor for hepatitis. No alcohol use. Never had any exposures to hepatitis B, hepatitis C. Never had an HIV test. 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 MEDICAL HISTORY: 1. Morbid obesity. 2. Depression. 3. Gastroesophageal reflux disease. 4. Left breast abscess. 5. History of abnormal Pap smear with high-grade squamous intraepithelial lesions. 6. Hirsutism with polycystic ovary syndrome. 7. Borderline diabetes. 8. Osteoarthritis of the knees and the back. 9. Hypertension. 10. Chronic pain syndrome. ALLERGIES: SULFA. SURGICAL HISTORY: 1. Gastric bypass in 2004. 2. Dilatation and curettage (D and C). 3. Appendectomy in 1998. 4. Vulvar biopsy for carcinoma in situ by Dr. Lucio in 2008 with laser to the vulva. 5. Left foot bunionectomy. 6. Tendon repairs of the foot in February 2019. 7. Colonoscopy at the age of 49. FAMILY HISTORY: Father of throat cancer at the age of 59. Mother of heart disease and diabetes. She has a sister who at the age of 65 from lung cancer metastatic to the adrenals. SOCIAL HISTORY: She is . She lives with her . She does not smoke or drink. 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 REVIEW OF SYSTEMS: She has generalized body aches and chronic pain from back and neck. No chills. No fever. No nausea, vomiting. She has diarrhea. Weight loss of 15 pounds, fatigue, shortness of breath but no cough. No nasal congestion. Some lower extremity edema, which has worsened over the past 2-3 weeks, and easy bruising. PHYSICAL EXAMINATION: Temperature is 99.2, pulse 88, respirations 20, blood pressure 143/66, oxygen saturation 96% on room air. HEART: Normal S1, S2. No murmurs, rubs or gallops. LUNGS: Clear. No wheezes, rhonchi or rales. ABDOMEN: Morbidly obese. Soft, nontender. Hepatosplenomegaly could not be assessed. BACK: No costovertebral angle (CVA) tenderness. Mild lumbosacral tenderness. EXTREMITIES: Pitting edema +1 bilaterally. No rash. No clubbing or cyanosis. NEUROLOGIC: Normal. Alert and oriented times three. HEAD/ENT: Oropharynx was clear. Anicteric. No adenopathy. LABORATORY DATA: White count is 14.0, RBC 18.5, hemoglobin 10.7, hematocrit 33.4, platelets 238, 69% neutrophils, 16% lymphocytes, 9% monocytes, 5% eosinophils. Sodium 143, potassium 3.4, chloride 111, bicarbonate 24, BUN 10, creatinine 0.88, glucose 94, calcium 7.7, magnesium 1.9. Bilirubin 2.4. GGTP was 317. LDH 583. Albumin 1.8, total protein 4.7. Lipase 39. TSH 9.060, free T4 of 4.1. IMAGING: Abdominal ultrasound done on July 20 showed mild ascites, fatty infiltration of the liver, reverse flow in the portal/superior mesenteric vein with mild prominent spleen. No evidence of hydronephrosis. Gallbladder multiple cholelithiasis. Vascular ultrasound: No evidence of deep venous thrombosis (DVT) of lower extremities. Soft tissue edema. Chest x-ray, PA and lateral, shows no acute abnormalities. Lungs are well aerated. Colonoscopy was done yesterday by Dr. Dyson. Normal colon. Mild sigmoid diverticulosis. Two 9 mm polys were seen at the hepatic flexure and were biopsied. Fluid aspiration for C. difficile was sent. IMPRESSION: This is a 60-year-old female with diarrhea of 10-month duration with two episodes of C. difficile followed by polymerase chain reaction (PCR) positive for enteropathogenic E. coli on two occasions, currently with persistent diarrhea and abnormal liver function tests. She has evidence of obstructive liver disease with ascites, elevated GGT, LDH, and pedal edema with hyperalbuminemia. Patient needs to be worked up for autoimmune hepatitis and chronic diarrhea. There is no infectious etiology to explain her current findings. PLAN: Continue Xifaxan 500 mg by mouth twice a day for a total of 14 days. Do not use broad-spectrum antibiotic, as she is at high risk of recurrent C. difficile. Encourage to use probiotics twice a day. MTDD
[2020-07-24] MEDS: LACTOBACILLUS ACIDOPHILUS CAP (BACID) PO SCH ×4 (08:53→20:00)
[2020-07-24] MEDS: POTASSIUM CHLORIDE 10 MEQ SR TABLET PO SCH ×2 (08:54→20:31)
[2020-07-24] MEDS: FAMOTIDINE 20 MG TAB PO SCH ×2 (08:54→19:59)
[2020-07-24] MEDS: rifAXIMin 550 MG TAB (XIFAXAN) PO SCH ×2 (08:55→19:59)
[2020-07-24] MEDS: METOPROLOL TART 25 MG TABLET PO SCH ×2 (08:56→20:00)
[2020-07-24] MEDS ORDERED: SODIUM CHLORIDE 0.9% INJ 10 ML SYR IV PRN (12:15)
--- NOTE | 2020-07-24 13:35 | IPNPDOC ---
Text Note Date of Service The patient was seen on 07/24/20. NOTE SUBJECTIVE: Diarrhea has resolved, now having formed stools, feels a little b selene compared to admission, leg swelling is improving. Planned for liver biopsy on 07/25/20 PHYSICAL EXAMINATION: VITALS: See below GEN: AAOx3 no respiratory distress, cooperative,and pleasant, normal affect HEENT: Nc/AT, moist mucous membranes, mild icteric eyes, PERRL EOMI Neck: no thyromegaly no JVD, cervical LAD LUNGS: no wheezing, or rales, or rhonchi. Bilateral vesicular breath sounds. HEART: S1 S2 RRR no murmurs rubs or gallops ABD: obese soft nontender, nondistended, bowel sounds normal, no abd bruit EXT:2+ edema b/l LE, LABORATORY DATA, IMAGING STUDIES, MICROBIOLOGY: reviewed. ASSESSMENT: 60 y/o female was in her usual state of health until 01/24/2020 when she had a fall, and was admitted to [facility] ,where she was found to have acute renal failure due to chronic diarrhea, transaminitis with negative hepatitis serology, diagnosed and treated for C diff with 14 days of oral vancomycin, subsequently discharged to [facility]. Since then, pt has been given macrobid for E coli cystitis x7 days, and cipro flagyl x 7days for diarrhea. She was referred to ID who recommended GI referral for colonoscopy. Colonoscopy by Dr. Dyson: sigmoid diverticulosis, colon polyp, internal hemorrhoids, with biopsies negative for microscopic colitis. Repeat C diff have been negative, but GI panel from 07/19/20 remains positive for enteropathogenic E coli. Patient has been placed on rifaximin by ID. Patient noted to have abnormal LFTs, LE edema, and 15lb weight loss with chronic diarrhea so was admitted for further workup. Chronic diarrhea stool positive for enteropathogenic e coli on 07/19/20 On rifaximin. h/o c diff earlier this year now negative ID following. Anasarca / ascites/ Transaminitis/ hyperbilirubinemia cause undetermined yet planned for liver biopsy on 07/25/20 immunological tests in progress. Liver Doppler negative, MRCP negative. anasarca due to hypoalbuminaemia continue IV lasix after potassium replacement continue spironolactone GI following. Leukocytosis procalcitonin at 0.76 has enteropathogenic Ecoli diarrhea now improving Severe Hypokalemia due to severe diarrhea getting IV and oral replacements Morbid Obesity BMI 47.4 Hypertension metoprolol. Abnormal TSH mildly elevated. follows with endocrine. Will not give any meds now. Depression sertraline GERD famotidine Adrenal Adenoma h/o PCOS Sigmoid diverticulosis Chronic back pain Anemia, macrocytic HH stable VS,Fishbone, I+O VS, Fishbone, I+O Laboratory Tests 07/24/20 05:07 Vital Signs Date Time Temp Pulse Resp B/P (MAP) Pulse Ox O2 Delivery O2 Flow Rate FiO2 07/24/20 08:56 87 112/63 07/24/20 06:00 98.4 16 100 Room Air I&O- Last 24 Hours up to 6 AM 07/24/20 06:00 Intake Total 630 ml Output Total 3300 ml Balance -2670 ml GINA EVANGELISTA MD Jul 24, 2020 13:35
[2020-07-24 14:00] VITALS: BP 117/62
[2020-07-24 14:08] LABS: Chitobioside Carbohydrat (ACCA 28 units (0-90); Laminaribioside Carbohyd (ALCA 31 units (0-60); Mannobioside Carbohydrat (AMCA 109 units (0-100); Saccharomyces cerevisiae IgG A 23 units (0-50)
[2020-07-24 15:20] LABS: CALCIUM LEVEL 8.4 MG/DL (8.8-10.2); CREATININE FOR GFR 1.38 MG/DL (0.55-1.30); GLOMERULAR FILTRATION RATE 41.4 (>45); POTASSIUM SERUM 6.1 MEQ/L (3.5-5.1)
[2020-07-24] MEDS ORDERED: FUROSEMIDE 100MG/10ML VIAL (J1940) IV ONE (15:45)
[2020-07-24 16:06] LABS: ANCA-ATYPICAL <1:20 titer (Neg:<1:20); ANTI-MITOCHONDRIAL ANTIBODY <20.0 Units (0.0-20.0); ANTINUCLEAR ANTIBODIES DIRECT Negative (Negative); CYTOPLASMIC NEUTROP AB ANCA-C <1:20 titer (Neg:<1:20); LIVER-KIDNEY MICROSOMAL ABY <20.1 Units (0.0-20.0); PERINUCLEAR AB ANCA-P <1:20 titer (Neg:<1:20)
--- NOTE | 2020-07-24 16:22 | REP ---
INDICATION: poor access. COMPARISON: None. TECHNIQUE: The procedure was performed under the direct supervision of Dr. Jiménez. The risks and benefits of the procedure were explained to the patient and informed consent was obtained. The right basilic vein was localized using ultrasound guidance. The skin was prepped and draped in a sterile fashion. 2% lidocaine was used as a local anesthetic. Using ultrasound guidance the basilic vein was cannulated and a 0.018 guidewire was inserted and advanced to the SVC using fluoroscopic guidance. The needle was removed and a 5.5 Austrian dilator and peel-away sheath was inserted over the guide wire. A 5.5 Austrian dual lumen catheter was cut to length of 39 cm. The dilator was removed and the catheter was inserted over the guide wire with the tip ending in the SVC. The peel-away sheath was removed and the catheter was flushed with heparinized saline as per Hospital protocol. The catheter was affixed to the skin and a sterile dressing was applied. The patient tolerated the procedure well and there were no immediate complications. 0.1 minutes of fluoro time was utilized for this procedure. FINDINGS: None IMPRESSION: Technically successful PICC line insertion right basilic vein. <Electronically signed by Ronald Arauz > 07/24/20 1153 <Electronically signed by Nasir Jiménez > 07/24/20 [id number]
[2020-07-24] MEDS: SODIUM CHLORIDE 0.9% INJ 10 ML SYR IV SCH (18:03)
[2020-07-24] MEDS: SERTRALINE 100 MG TAB PO SCH (19:59)
[2020-07-24 22:00] VITALS: BP 109/59
[2020-07-24 23:07] LABS: CAROTENE 6 ug/dL (3-91); HAPTOGLOBIN 98 mg/dL (37-355)
[2020-07-25] MEDS: SODIUM CHLORIDE 0.9% INJ 10 ML SYR IV SCH ×2 (05:32→17:46)
[2020-07-25 06:00] VITALS: BP 118/55
[2020-07-25 06:00] LABS: BASO # 0.1 10^3/uL (0.0-0.2); BASO % 0.5 % (0.0-1.0); EOS # 0.5 10^3/uL (0.0-0.5); EOS % 3.7 % (0.0-3.0); HEMATOCRIT 32.5 % (36.0-47.0); HEMOGLOBIN 10.4 g/dl (12.0-15.5); LYMPH # 3.2 10^3/uL (1.5-5.0); LYMPH % 22.2 % (24.0-44.0); MEAN CORPUSCULAR HEMOGLOBIN 32.9 pg (27.0-33.0); MEAN CORPUSCULAR VOLUME 102.8 fl (80.0-96.0); MONO # 1.3 10^3/uL (0.0-0.8); NEUTROPHILS # 9.3 10^3/uL (1.5-8.5); NEUTROPHILS % 64.1 % (36.0-66.0); PLATELET COUNT, AUTOMATED 243 10^3/uL (150-450); RED BLOOD COUNT 3.16 10^6/uL (4.00-5.40); WHITE BLOOD COUNT 14.5 10^3/uL (4.0-10.0)
[2020-07-25 07:04] LABS: ALBUMIN 2.1 GM/DL (3.2-5.2); BILIRUBIN,TOTAL 3.1 MG/DL (0.2-1.0); CALCIUM LEVEL 8.5 MG/DL (8.8-10.2); CREATININE FOR GFR 1.25 MG/DL (0.55-1.30); GLOMERULAR FILTRATION RATE 46.4 (>45); MAGNESIUM LEVEL 2.2 MG/DL (1.8-2.4); POTASSIUM SERUM 2.8 MEQ/L (3.5-5.1); TOTAL PROTEIN 5.1 GM/DL (6.4-8.2)
--- NOTE | 2020-07-25 08:47 | IPN ---
DATE: 07/23/2020 SUBJECTIVE: Ms. Powers seems to be doing somewhat better. She states her lower extremity edema and fullness of the abdomen have decreased since on I.V. diuretics. The patients diarrhea has improved as well. She remains on Xifaxan currently day number 9. Stool with GI panel was negative for C. diff and E. coli. PHYSICAL EXAMINATION: Temperature 98, pulse 81, respirations 18, blood pressure 118/70, O2 sat 100% on room air. She has remained afebrile. Heart: Normal S1 and S2, no murmurs. Lungs: Clear, no wheezes, rhonchi or rales. Abdomen: Markedly obese, soft, nontender. Extremities: +1 pitting edema. Back: No CVA tenderness. LABORATORY DATA: White count remains elevated at 15.4, hemoglobin 11.5, hematocrit 35.9, MCV 105, platelets 255, 68% neutrophils, 16% lymphocytes, 9% monocytes, 5% eosinophils. Haptoglobin is pending. Sodium 141, potassium 3, chloride 102, bicarb 31, BUN 8, creatinine 1.2. Bilirubin 3, mostly direct hyperbilirubinemia. AST has decreased from 111 to 81. ALT 44. GGT 317. Alkaline phosphatase 152. Blood cultures 2 sets were negative. RADIOLOGY STUDIES: On abdominal ultrasound, spleen is upper limit of normal, no focal splenic lesions.No hydronephrosis of the right kidney. Fatty infiltration of the liver, mild ascites and reverse flow in portal vein. Bowel sounds are present. Abdominal MRI showed no splenomegaly, severe adenomyosis of the gallbladder wall seen on recent ultrasound with 30 small gallstones mixed with sludge. Large amount of ascites toward the abdomen. No evidence of DVT in lower extremities on vascular ultrasound. Chest x-ray no acute disease. IMPRESSIONS AND PLAN: 1. Diarrhea in a patient who had previous history of C. difficile and enterotixigenic E. coli on xifaxan D9/14 doing better . 2. Abnormal liver function tests with hyperbilirubinemia and elevated GGTP suggestive of liver cirrhosis: Patient would definitely benefit from a liver biopsy for further work-up of current symptoms. She has evidence of ascites and lower extremity edema which is most likely due to liver cirrhosis. Echocardiogram has been scheduled, but not done yet. Patient has been discussed with Dr. Dyson and Dr crump, recommended she gets a liver biopsy to rule out cirrhosis. Other labs done VENKATA, ANCA, antimitochondrial antibody, liver kidney pending. HIV negative. Hepatitis A, B and C negative. MTDD
[2020-07-25] MEDS: KCL 10MEQ/100ML SWI (KRUN) 10 MEQ in IV 1 EA IV SCH ×2 (09:04→10:27)
[2020-07-25] MEDS: LACTOBACILLUS ACIDOPHILUS CAP (BACID) PO SCH ×4 (09:05→22:48)
[2020-07-25] MEDS: FAMOTIDINE 20 MG TAB PO SCH ×2 (09:05→22:48)
[2020-07-25] MEDS: POTASSIUM CHLORIDE 10 MEQ SR TABLET PO SCH ×2 (09:05→22:48)
[2020-07-25] MEDS: rifAXIMin 550 MG TAB (XIFAXAN) PO SCH ×2 (09:05→22:46)
[2020-07-25] MEDS: METOPROLOL TART 25 MG TABLET PO SCH ×2 (09:07→21:00)
[2020-07-25] MEDS ORDERED: LORazepam 2 MG/ML VIAL IV ONE ×2 (10:15→11:15)
--- NOTE | 2020-07-25 10:19 | IPNPDOC ---
Text Note Date of Service The patient was seen on 07/25/20. NOTE SUBJECTIVE: Diarrhea has resolved, now having formed stools though several times small amounts, no abdominal pain or cramps, feels a better compared to admission, leg swelling is improving and overall anasarca improving. Planned for liver biopsy on 07/25/20 PHYSICAL EXAMINATION: VITALS: See below GEN: AAOx3 no respiratory distress, cooperative,and pleasant, normal affect HEENT: Nc/AT, moist mucous membranes, mild icteric eyes, PERRL EOMI Neck: no thyromegaly no JVD, cervical LAD LUNGS: no wheezing, or rales, or rhonchi. Bilateral vesicular breath sounds. HEART: S1 S2 RRR no murmurs rubs or gallops ABD: obese soft nontender, nondistended, bowel sounds normal, no abd bruit EXT:2+ edema b/l LE, LABORATORY DATA, IMAGING STUDIES, MICROBIOLOGY: reviewed. ASSESSMENT: 60 y/o female was in her usual state of health until 01/24/2020 when she had a fall, and was admitted to [facility] ,where she was found to have acute renal failure due to chronic diarrhea, transaminitis with negative hepatitis serology, diagnosed and treated for C diff with 14 days of oral vancomycin, subsequently discharged to [facility]. Since then, pt has been given macrobid for E coli cystitis x7 days, and cipro flagyl x 7days for diarrhea. She was referred to ID who recommended GI referral for colonoscopy. Colonoscopy by Dr. Dyson: sigmoid diverticulosis, colon polyp, internal hemorrhoids, with biopsies negative for microscopic colitis. Repeat C diff have been negative, but GI panel from 07/19/20 remains positive for enteropathogenic E coli. Patient has been placed on rifaximin by ID. Patient noted to have abnormal LFTs, LE edema, and 15lb weight loss with chronic diarrhea so was admitted for further workup. Chronic diarrhea stool positive for enteropathogenic e coli on 07/19/20 On rifaximin. h/o c diff earlier this year now negative ID following. Anasarca / ascites/ Transaminitis/ hyperbilirubinemia cause undetermined yet planned for liver biopsy on 07/25/20 immunological tests in progress. Liver Doppler negative except for reversal of flow, MRCP negative. anasarca due to hypoalbuminaemia ? underlying cirrhosis. Has been morbidly obese almost all her life, no significant h/o alcohol intake. continue IV lasix after potassium replacement continue spironolactone GI following. Leukocytosis procalcitonin at 0.76 has enteropathogenic Ecoli diarrhea now improving Severe Hypokalemia due to severe diarrhea getting IV and oral replacements Morbid Obesity s/p gastric bypass surgery in 2004 at [facility] by Dr Fernando. She was 367 lbs prior to surgery and after surgery stabilized at 186 to 196 lbs. current BMI 47.4 but may be a little over estimated due to anasarca. Hypertension metoprolol. Abnormal TSH mildly elevated. follows with endocrine. Will not give any meds now. Depression sertraline GERD famotidine Adrenal Adenoma h/o PCOS Sigmoid diverticulosis Chronic back pain Anemia, macrocytic HH stable VS,Fishbone, I+O VS, Fishbone, I+O Laboratory Tests 07/24/20 14:24 07/24/20 18:15 07/25/20 05:39 Vital Signs Date Time Temp Pulse Resp B/P (MAP) Pulse Ox O2 Delivery O2 Flow Rate FiO2 07/25/20 09:07 76 116/60 07/25/20 06:00 97.7 18 98 Room Air I&O- Last 24 Hours up to 6 AM 07/25/20 06:00 Intake Total 350 ml Output Total 1900 ml Balance -1550 ml GINA EVANGELISTA MD Jul 25, 2020 10:19
[2020-07-25] MEDS ORDERED: LIDOCAINE 1% MDV 20ML VIAL As Ordered ONE (10:47)
[2020-07-25] MEDS ORDERED: LORazepam 2 MG/ML VIAL As Ordered ONE (11:13)
--- NOTE | 2020-07-25 12:25 | IPN ---
DATE: 07/24/2020 SUBJECTIVE: Lauren feels better. She still has some lower extremity edema and bloating but definitely improved. She has had no fever or chills. No nausea, vomiting or abdominal pain. The patient is scheduled for a liver biopsy tomorrow to rule out cirrhosis. She denies any alcohol use or family history of liver cirrhosis. PHYSICAL EXAMINATION: VITAL SIGNS: Stable. Afebrile. Temperature 98.7, pulse 79, respirations 19, blood pressure 117/52, O2 sat 100% on room air. HEART: Normal S1, S2, no murmurs appreciated. LUNGS: Clear. No rales, rhonchi or wheezes. ABDOMEN: Obese, soft, nontender. EXTREMITIES: +1 pitting edema bilaterally. LABORATORY STUDIES: White count 15, hemoglobin 11.3, hematocrit 35.7, platelets 270, 66% neutrophils, 19% lymphocytes, 9% monocytes, 4% eosinophils. Sodium 134, potassium 6.1, chloride 98, bicarbonate 30, BUN 11, creatinine 1.28, glucose 117, calcium 8.4. GI panel was positive for enteropathogenic E-coli, similar to previous stool PCR. Blood cultures 07/19 no growth after 5 days. Pathology GI no colitis,.reveals benign colonic mucosa, were biopsied, and it showed tubulovillous adenoma. . IMPRESSION: 1. Chronic diarrhea with enteropathogenic E-coli. Patient doing better with Xifaxan 550 mg twice daily, currently day number ten. 2. Abnormal liver function tests with reversal flow of portal vein with hyperalbuminemia anasarca and edema. It is very likely the patient has liver cirrhosis, possibly related non-alcoholic steatohepatitis. Liver biopsy pending tomorrow. 3. History of Clostridium difficile colitis - avoid antibiotics. 4. Leukocytosis we will need to be monitored and followed. Labs - HIV antigen antibody is negative. IBD work up negative for inflammatory bowel disease. VENKATA negative, ANCA less than 1:20. Mitochondrial antibody less than 20. Liver and kidney microsomal titer less than 20. PLAN liver biopsy tomorrow. The patient from my standpoint can be discharged home to follow up with Gastroenterology next week regarding liver pathology. Continue with Xifaxan should be continued especially if the patient has liver cirrhosis.currently treating IBS with diarrhea predominance and Ecoli in stool MTDD
[2020-07-25 12:30] VITALS: BP 102/49
[2020-07-25] MEDS: FUROSEMIDE 40MG/4ML VIAL (J1940) IV SCH (12:47)
[2020-07-25 13:00] VITALS: BP 102/49
[2020-07-25 15:47] LABS: CALCIUM LEVEL 8.8 MG/DL (8.8-10.2); CREATININE FOR GFR 1.26 MG/DL (0.55-1.30); POTASSIUM SERUM 3.5 MEQ/L (3.5-5.1)
[2020-07-25 16:39] VITALS: BP 95/48
--- NOTE | 2020-07-25 17:26 | REP ---
INDICATION: LIVER BIOPSY ELEVATED BILI. ASCITES r/O CIRRHOSIS. COMPARISON: None. TECHNIQUE: The images were reviewed with Dr. Jiménez. The risks and benefits of the procedure were explained to the patient and informed consent was obtained. The left lobe of the liver was localized using ultrasound guidance. The skin was prepped and draped in a sterile fashion. 1% lidocaine was used as local anesthetic. Using ultrasound guidance a 17/18 gauge coaxial needle biopsy system was inserted and 5 core biopsy samples were obtained. The patient tolerated the procedure well and there were no immediate complications. After the appropriate [id number] convalescence the patient was discharged from the department. FINDINGS: None IMPRESSION: Technically successful ultrasound-guided liver biopsy. <Electronically signed by Ronald Arauz > 07/25/20 1720 <Electronically signed by Nasir Jiménez > 07/25/20 1726
[2020-07-25 22:00] VITALS: BP 102/60
[2020-07-25] MEDS: SPIRONOLACTONE 50 MG TAB PO SCH (22:46)
[2020-07-25] MEDS: SERTRALINE 100 MG TAB PO SCH (22:48)
[2020-07-26 06:00] VITALS: BP 97/59
[2020-07-26] MEDS: SODIUM CHLORIDE 0.9% INJ 10 ML SYR IV SCH ×2 (06:26→18:17)
[2020-07-26] MEDS: LACTOBACILLUS ACIDOPHILUS CAP (BACID) PO SCH ×5 (08:00→21:54)
[2020-07-26] MEDS: rifAXIMin 550 MG TAB (XIFAXAN) PO SCH ×3 (08:01→21:52)
[2020-07-26] MEDS: FAMOTIDINE 20 MG TAB PO SCH ×3 (08:01→21:52)
[2020-07-26] MEDS: METOPROLOL TART 25 MG TABLET PO SCH ×3 (08:02→21:53)
[2020-07-26] MEDS: FUROSEMIDE 40MG/4ML VIAL (J1940) IV SCH (08:02)
[2020-07-26] MEDS: POTASSIUM CHLORIDE 10 MEQ SR TABLET PO SCH ×2 (08:02→08:18)
[2020-07-26 08:12] LABS: BASO # 0.1 10^3/uL (0.0-0.2); BASO % 0.6 % (0.0-1.0); EOS # 0.7 10^3/uL (0.0-0.5); EOS % 4.2 % (0.0-3.0); HEMATOCRIT 32.6 % (36.0-47.0); HEMOGLOBIN 10.4 g/dl (12.0-15.5); LYMPH # 2.9 10^3/uL (1.5-5.0); LYMPH % 18.2 % (24.0-44.0); MEAN CORPUSCULAR HEMOGLOBIN 33.5 pg (27.0-33.0); MEAN CORPUSCULAR HGB CONC 31.9 g/dl (32.0-36.5); MEAN CORPUSCULAR VOLUME 105.2 fl (80.0-96.0); MONO # 1.3 10^3/uL (0.0-0.8); MONO % 8.3 % (0.0-5.0); NEUTROPHILS % 68.4 % (36.0-66.0); PLATELET COUNT, AUTOMATED 228 10^3/uL (150-450); WHITE BLOOD COUNT 16.1 10^3/uL (4.0-10.0)
[2020-07-26] MEDS ORDERED: GLUCAGON INJ 1MG VIAL As Ordered ONE (08:26)
[2020-07-26] MEDS ORDERED: VoLumen 0.1% SUSPENSION 450ML BOTTLE As Ordered ONE (08:26)
[2020-07-26] MEDS ORDERED: ISOVUE-370 76% 100ML VIAL As Ordered ONE (08:26)
[2020-07-26 08:31] LABS: ALBUMIN 1.9 GM/DL (3.2-5.2); BILIRUBIN,TOTAL 2.6 MG/DL (0.2-1.0); CALCIUM LEVEL 8.1 MG/DL (8.8-10.2); CREATININE FOR GFR 1.39 MG/DL (0.55-1.30); MAGNESIUM LEVEL 2.1 MG/DL (1.8-2.4); POTASSIUM SERUM 3.3 MEQ/L (3.5-5.1); TOTAL PROTEIN 4.7 GM/DL (6.4-8.2)
--- NOTE | 2020-07-26 11:20 | REP ---
INDICATION: evaluate for small bowel crohns disease. Diarrhea,incr WBC. COMPARISON: MRI abdomen 07/20/2020 ultrasound 07/20/2020 CT 01/24/2020 TECHNIQUE: Bolus of 100 mL Isovue 370 with 3 doses of oral Volumen per our enterography protocol. FINDINGS: CT abdomen: Lung bases show no infiltrate or effusion. The heart is not enlarged. There is no pericardial effusion or thickening. I see no hiatal hernia. Is moderate diffuse ascites in the abdomen and pelvis. Extends from around the liver and spleen down both peroneal gutters into the pelvis right hepatic lobe has a vertical diameter 16.8 cm, not enlarged some mild prominence the left hepatic lobe and subtle heterogeneity or coarsening of the hepatic parenchyma appearance along with slight lobulation of contour. This is consistent with chronic liver disease. The spleen is not enlarged. Gallbladder shows some layering calcified stones and also thickening of its wall. Few adherent stones or calcifications in the gallbladder wall in nondependent portions noted. Left adrenal adenoma is as noted on previous MRI and unchanged right adrenal gland unremarkable. Pancreas shows no mass, calcification to suggest stone or dilated duct. Kidneys show symmetric enhancement. There is no visible mass, stone or cyst. No hydronephrosis or hydroureter. Lung window review shows no sign of perforation or free air. Bone windows show lumbar, lower thoracic spine with minor degenerative changes. Several disc levels with narrowing. No compression fractures or destructive lesion. Visualized ribs intact. The aorta is without aneurysm. There is no pathologic sized periaortic or mesenteric lymphadenopathy with scattered normal-sized nodes present. There is ascites and some edema in the mesentery. Both arterial and venous reconstructions in standard and MIP reformats demonstrate thickening of small bowel wall and edematous stranding in the mesentery with scattered normal size nodes. There is no evidence of the abnormal dilatation of small bowel loops or obstruction. Evidence for gastric bypass with a gastrojejunostomy, the proximal jejunal loops close to this surgical change are unremarkable. The distal and terminal ileum likewise show diffuse thickening or edema of the small bowel wall. This extends into the terminal ileum junction with the cecum. There is some fat in the ileocecal valve, a common normal finding. There is no evidence of abscess or perforation. The colon shows mostly fluid-filled loops. There is no abnormal wall thickening of the colon loops in the abdomen proper but some infiltration of the adjacent mesentery is seen similar to that in the small bowel mesentery. CT pelvis: Uterus is anteverted not enlarged. Bladder only minimally filled therefore tubal thickness difficult to evaluate. No ureteral dilatation or stone or bladder calculus. Moderate ascites in the deep pelvis. There is no ventral or inguinal hernia. Distal left colon sigmoid and rectum fluid-filled with the some slight and enhancement, thickening of wall of the proximal to mid sigmoid with adjacent fatty infiltration that may reflect non-specific colitis. No abscess or perforation. No visible appendix. The bony pelvis shows sclerosis SI joints on the iliac side, right greater than left. No destructive bone lesion or fracture in the pelvis, sacrum or hips IMPRESSION: 1. Moderate ascites and evidence of chronic liver disease. No parenchymal mass or biliary dilatation. 2. Cholelithiasis and chronic changes in the gallbladder wall without gross mass. Gallbladder is not abnormally distended and there is no intrahepatic biliary dilatation or dilatation of the common duct in the pancreatic head. 3. Diffuse mesenteric edema with enhancement and thickening of small bowel quinteros throughout the jejunum and ileum. No abnormal dilatation of loops or strictures. No obstruction. 4. Colon is mostly fluid-filled but not abnormally dilated there is some nonspecific phlegm a kulwinder change about pericolonic fat. May reflect a nonspecific colitis. No mass or obstruction. 5. Left adrenal gland nodule unchanged, previously proven by MRI to be a benign fatty adenoma. <Electronically signed by Sher Toribio > 07/26/20 [id number]
--- NOTE | 2020-07-26 12:49 | IPNPDOC ---
Text Note Date of Service The patient was seen on 07/26/20. NOTE SUBJECTIVE: Again started having diarrhea last night, no abdominal pain, 5 ep isodes till now. Had liver biopsy yesterday and CT enterogram today. Feels very tired and weak. Leg swelling is better but more fluid at the buttocks and back of thighs. PHYSICAL EXAMINATION: VITALS: See below GEN: AAOx3 no respiratory distress, cooperative,and pleasant, normal affect HEENT: Nc/AT, moist mucous membranes, mild icteric eyes, PERRL EOMI Neck: no thyromegaly no JVD, cervical LAD LUNGS: no wheezing, or rales, or rhonchi. Bilateral vesicular breath sounds. HEART: S1 S2 RRR no murmurs rubs or gallops ABD: obese soft nontender, nondistended, bowel sounds normal, no abd bruit EXT:2+ edema b/l LE, LABORATORY DATA, IMAGING STUDIES, MICROBIOLOGY: reviewed. ASSESSMENT: 60 y/o female was in her usual state of health until 01/24/2020 when she had a fall, and was admitted to [facility] ,where she was found to have acute renal failure due to chronic diarrhea, transaminitis with negative hepatitis serology, diagnosed and treated for C diff with 14 days of oral vancomycin, subsequently discharged to [facility]. Since then, pt has been given macrobid for E coli cystitis x7 days, and cipro flagyl x 7days for diarrhea. She was referred to ID who recommended GI referral for colonoscopy. Colonoscopy by Dr. Dyson: sigmoid diverticulosis, colon polyp, internal hemorrhoids, with biopsies negative for microscopic colitis. Repeat C diff have been negative, but GI panel from 07/19/20 remains positive for enteropathogenic E coli. Patient has been placed on rifaximin by ID. Patient noted to have abnormal LFTs, LE edema, and 15lb weight loss with chronic diarrhea so was admitted for further workup. Chronic diarrhea stool positive for enteropathogenic e coli on 07/19/20 On rifaximin. h/o c diff earlier this year now negative again restarted ? try imodium will discuss with ID. Anasarca / ascites/ Transaminitis/ hyperbilirubinemia Most probably from Cirrhosis of liver CT enterography shows chronic liver disease, nodular surface Liver Doppler negative except for reversal of flow in portal system. MRCP negative. Had liver biopsy on 07/25/20 immunological tests negative. Most likely KO cirrhosis. Anasarca due to hypoalbuminemia due to underlying cirrhosis. Has been morbidly obese all her life since she was a child. no significant h/o alcohol intake. continue IV lasix after potassium replacement continue spironolactone GI following. Leukocytosis worse today. procalcitonin at 0.76 has enteropathogenic Ecoli diarrhea has restarted, Severe Hypokalemia due to severe diarrhea getting IV and oral replacements Morbid Obesity s/p gastric bypass surgery in 2004 at [facility] by Dr Fernando. She was 367 lbs prior to surgery and after surgery stabilized at 186 to 196 lbs. current BMI 47.4 but may be a little over estimated due to anasarca. Hypertension metoprolol. Abnormal TSH mildly elevated. follows with endocrine. Will not give any meds now. Depression sertraline GERD famotidine Adrenal Adenoma h/o PCOS Sigmoid diverticulosis Chronic back pain Anemia, macrocytic HH stable VS,Fishbone, I+O VS, Fishbone, I+O Laboratory Tests 07/25/20 15:14 07/26/20 07:49 Vital Signs Date Time Temp Pulse Resp B/P (MAP) Pulse Ox O2 Delivery O2 Flow Rate FiO2 07/26/20 08:02 79 97/59 07/26/20 06:00 98.5 17 97 Room Air I&O- Last 24 Hours up to 6 AM 07/26/20 06:00 Intake Total 300 ml Output Total 500 ml Balance -200 ml GINA EVANGELISTA MD Jul 26, 2020 12:49
[2020-07-26] MEDS ORDERED: LOPERAMIDE 2 MG CAPLET PO PRN (13:30)
[2020-07-26] MEDS: KCL 10MEQ/100ML SWI (KRUN) 10 MEQ in IV 1 EA IV SCH ×2 (13:32→15:30)
[2020-07-26 14:17] VITALS: BP 116/54
[2020-07-26] MEDS: CHOLESTYRAMINE 4 GM PWD PKT PO SCH ×2 (15:30→21:52)
[2020-07-26] MEDS: SERTRALINE 100 MG TAB PO SCH (21:54)
[2020-07-26] MEDS: SPIRONOLACTONE 50 MG TAB PO SCH (21:54)
[2020-07-26 22:00] VITALS: BP 113/61
[2020-07-27 06:00] VITALS: BP 113/60
[2020-07-27 06:42] LABS: HEMATOCRIT 30.3 % (36.0-47.0); HEMOGLOBIN 9.9 g/dl (12.0-15.5); MEAN CORPUSCULAR HEMOGLOBIN 33.8 pg (27.0-33.0); MEAN CORPUSCULAR HGB CONC 32.7 g/dl (32.0-36.5); MEAN CORPUSCULAR VOLUME 103.4 fl (80.0-96.0); PLATELET COUNT, AUTOMATED 196 10^3/uL (150-450); RED BLOOD COUNT 2.93 10^6/uL (4.00-5.40); WHITE BLOOD COUNT 13.7 10^3/uL (4.0-10.0)
[2020-07-27] MEDS: SODIUM CHLORIDE 0.9% INJ 10 ML SYR IV SCH (06:58)
[2020-07-27 07:22] LABS: CALCIUM LEVEL 8.1 MG/DL (8.8-10.2); CREATININE FOR GFR 1.36 MG/DL (0.55-1.30); GLOMERULAR FILTRATION RATE 42.1 (>45); POTASSIUM SERUM 2.8 MEQ/L (3.5-5.1)
[2020-07-27 09:00] VITALS: BP 113/60
[2020-07-27] MEDS ORDERED: POTASSIUM CHLORIDE 10 MEQ SR TABLET PO SCH (09:00)
[2020-07-27] MEDS: METOPROLOL TART 25 MG TABLET PO SCH ×2 (09:00→09:56)
[2020-07-27] MEDS: rifAXIMin 550 MG TAB (XIFAXAN) PO SCH (09:58)
[2020-07-27] MEDS: FAMOTIDINE 20 MG TAB PO SCH (09:58)
[2020-07-27] MEDS: FUROSEMIDE 40MG/4ML VIAL (J1940) IV SCH (09:58)
[2020-07-27] MEDS: CHOLESTYRAMINE 4 GM PWD PKT PO SCH (09:59)
[2020-07-27] MEDS: LACTOBACILLUS ACIDOPHILUS CAP (BACID) PO SCH ×2 (09:59→13:23)
[2020-07-27] MEDS ORDERED: POTASSIUM CHLORIDE 10 MEQ SR TABLET PO ONE (10:30)
[2020-07-27] MEDS ORDERED: POTA10TA17 PO (10:48)
[2020-07-27] MEDS ORDERED: LOPE-39 PO (10:48)
[2020-07-27] MEDS ORDERED: ALDA50TA2 PO (10:48)
[2020-07-27] MEDS ORDERED: CHOL4PW PO (10:48)
[2020-07-27] MEDS ORDERED: XIFA550T PO (10:48)
[2020-07-27] MEDS ORDERED: LASI40TA9 PO (10:48)
[2020-07-27] MEDS: KCL 10MEQ/100ML SWI (KRUN) 10 MEQ in IV 1 EA IV SCH ×2 (11:00→12:00)
--- NOTE | 2020-07-27 18:25 | DS.PDOC ---
Discharge Summary General Date of Admission Jul 19, 2020 at 16:38 Date of Discharge 07/27/20 Discharge Summary PROCEDURES PERFORMED DURING STAY: Liver Biopsy DISCHARGE DIAGNOSES: Decompensated cirrhosis of liver with ascites and anasarca probably related to KO Chronic diarrhea due to Post C. diff infection IBS. Hypokalemia Abnormal TSH SECONDARY DIAGNOSIS: Morbid obesity s/p gastric bypass surgery H/o C. Diff, H/O Enteropathogenic E coli Diarrhea, Sigmoid diverticulosis, internal hemorrhoids, HTN, Depression, GERD, Cervical SCC in situ, h/o PCOS, OA Adrenal adenoma Anemia Chronic back pain COMPLICATIONS/CHIEF COMPLAINT: Diarrhea,Weight Loss. HOSPITAL COURSE: 60 y/o female was in her usual state of health until 01/24/2020 when she had a fall, and was admitted to [facility] ,where she was found to have acute renal failure due to chronic diarrhea, transaminitis with negative hepatitis serology, diagnosed and treated for C diff with 14 days of oral vancomycin, subsequently discharged to [facility]. Since then, pt has been given macrobid for E coli cystitis x7 days, and cipro flagyl x 7days for diarrhea. She was referred to ID who recommended GI re ferral for colonoscopy. Colonoscopy by Dr. Dyson: sigmoid diverticulosis, colon polyp, internal hemorrhoids, with biopsies negative for microscopic colitis. Repeat C diff have been negative, but GI panel from 07/19/20 remains positive for enteropathogenic E coli. Patient has been placed on rifaximin by ID. Patient noted to have abnormal LFTs, LE edema, and 15lb weight loss with chronic diarrhea so was admitted for further workup. Chronic diarrhea stool positive for enteropathogenic e coli on 07/19/20 On rifaximin. h/o c diff earlier this year now negative Colonoscopy negative, BX negative for microscopic colitis. possibly post c diff IBS will give cholestyramine and imodium Follow up with ID. Anasarca / ascites/ Transaminitis/ hyperbilirubinemia Due Cirrhosis of liver Had liver biopsy on 07/25/[address] enterography shows chronic liver disease, nodular surface Liver Doppler negative except for reversal of flow in portal system. MRCP negative. immunological tests negative. Most likely KO cirrhosis. Anasarca due to hypoalbuminemia due to underlying cirrhosis. Has been morbidly obese all her life since she was a child. no significant h/o alcohol intake. continue spironolactone , lasix GI following. Hypokalemia replaced IV and oral. Leukocytosis improving procalcitonin at 0.76 Morbid Obesity s/p gastric bypass surgery in [address] at [facility] by Dr Fernando. She was 367 lbs prior to surgery and after surgery stabilized at 186 to 196 lbs. current BMI 47.4 but may be a little over estimated due to anasarca. Hypertension metoprolol. Abnormal TSH mildly elevated. follows with endocrine. Will not give any meds now. Depression sertraline GERD famotidine Adrenal Adenoma h/o PCOS Sigmoid diverticulosis Chronic back pain Anemia, macrocytic HH stable DISCHARGE MEDICATIONS: Please see below. ALLERGIES: Please see below. PHYSICAL EXAMINATION ON DISCHARGE: VITAL SIGNS: Please see below. GEN: AAOx3 no respiratory distress, cooperative,and pleasant, normal affect HEENT: Nc/AT, moist mucous membranes, mild icteric eyes, PERRL EOMI Neck: no thyromegaly no JVD, cervical LAD LUNGS: no wheezing, or rales, or rhonchi. Bilateral vesicular breath sounds. HEART: S1 S2 RRR no murmurs rubs or gallops ABD: obese soft nontender, nondistended, bowel sounds normal, no abd bruit EXT:2+ edema b/l LE, LABORATORY DATA: Please see below. ACTIVITY: [As tolerated]. DIET: 2 gm sodium, fluid restriction 1800 cc DISPOSITION: 01 Home, Self-Care. DISCHARGE INSTRUCTIONS: Dr Dyson in 1 to 2 weeks PMD in 1 week Follow up with ID as per outpatient appointment DISCHARGE CONDITION: [Stable]. TIME SPENT ON DISCHARGE: 35 minutes. Vital Signs/I&Os Vital Signs Date Time Temp Pulse Resp B/P (MAP) Pulse Ox O2 Delivery O2 Flow Rate FiO2 07/27/20 09:00 85 113/60 07/27/20 06:00 98.7 18 98 Room Air I&O- Last 24 Hours up to 6 AM 07/27/20 06:00 Intake Total 1460 ml Output Total 825 ml Balance 635 ml Laboratory Data Labs 24H Laboratory Tests 2 07/27/20 06:33: Nucleated Red Blood Cells % (auto) 0.0, Anion Gap 8, Glomerular Filtration Rate 42.1L, Calcium Level 8.1L, Magnesium Level 2.0 CBC/BMP Laboratory Tests 07/27/20 06:33 Microbiology Microbiology 07/19/20 Campylobacter (PCR) - Final, Complete 07/19/20 Clostridium difficile Toxin A&B PCR - Final, Complete 07/19/20 Plesiomonas shigelloides (PCR) - Final, Complete 07/19/20 Salmonella (PCR)(LUÍS) - Final, Complete 07/19/20 Vibrio Species (PCR) - Final, Complete 07/19/20 Vibrio Cholerae (PCR) - Final, Complete 07/19/20 Yersinia enterocolitica (PCR) - Final, Complete 07/19/20 Enteroaggregative E. coli (PCR) - Final, Complete 07/19/20 Enteropathogenic E. coli (PCR) - Final, Complete 07/19/20 Enterotoxigenic E. coli (PCR) - Final, Complete 07/19/20 E. coli Shiga-like Toxin (PCR) - Final, Complete 07/19/20 Escherichia coli 0157 (PCR) - Final, Complete 07/19/20 Enteroinvasive E. coli/Shigella PCR - Final, Complete 07/19/20 Cryptosporidium (PCR) - Final, Complete 07/19/20 Cyclospora cayetanensis (PCR) - Final, Complete 07/19/20 Entamoeba histolytica (PCR) - Final, Complete 07/19/20 Giardia lamblia (PCR) - Final, Complete 07/19/20 Adenovirus Type F 40/41 (PCR) - Final, Complete 07/19/20 Astrovirus (PCR) - Final, Complete 07/19/20 Norovirus GI/GII (PCR) - Final, Complete 07/19/20 Rotavirus A (PCR) - Final, Complete 07/19/20 Sapovirus I/II/IV/V (PCR) - Final, Complete 07/19/20 Blood Culture - Final, Complete NO GROWTH AFTER 5 DAYS 07/19/20 Blood Culture - Final, Complete NO GROWTH AFTER 5 DAYS Discharge Medications Scheduled Bifidobacterium Infantis (Align) 4 Mg Capsule, 1 CAP PO DAILY, (Reported) Cholestyramine (Cholestyramine Packet) 4 Gm Powd.pack, 2 GM PO BID@1000,2200 Furosemide (Lasix) 40 Mg Tablet, 1 TAB PO DAILY Loperamide HCl (Imodium A-D) 2 Mg Capsule, 2 MG PO BID Metoprolol Tartrate (Metoprolol Tartrate) 25 Mg Tablet, 1 TAB PO BID, (Reported) Potassium Chloride (Potassium Chloride) 10 Meq Tab.er.prt, 1 TAB PO DAILY Rifaximin (Xifaxan) 550 Mg Tablet, 550 MG PO BID Sertraline HCl (Sertraline HCl) 100 Mg Tablet, DAILY, (Reported) Spironolactone (Aldactone) 50 Mg Tablet, 50 MG PO DAILY Vit C/E/Zn/Coppr/Lutein/Zeaxan (Preservision Areds 2 Softgel) 1 Each Capsule, 1 EACH PO DAILY, (Reported) Scheduled PRN Ondansetron HCl (Ondansetron HCl) 4 Mg Tablet, 1 TAB PO PRN PRN for NAUSEA, (Reported) Miscellaneous Medications Famotidine (Famotidine) 20 Mg Tablet, (Reported) Allergies Coded Allergies: Sulfa (Sulfonamide Antibiotics) (Verified Allergy, Intermediate, H, 07/12/20) GINA EVANGELISTA MD Jul 27, 2020 18:25
== END 2020-07-27 15:35 | disposition home or self-care (01) | DRG 433 ==
LOC: M OPP 12:03 → M MS5PR 16:38
PROVIDERS: ADMIT General Practice; ATTEND Internal Medicine Nephrology
PROC: 0DBK8ZX Excision of Ascending Colon, Via Natural or Artificial Opening Endoscopic, Diagnostic (ICD-10-PCS; principal; 2020-07-19 11:20)
PROC: 0FB23ZX Excision of Left Lobe Liver, Percutaneous Approach, Diagnostic (ICD-10-PCS; 2020-07-24)
DX: K74.60 Unspecified cirrhosis of liver (principal); A04.0 Enteropathogenic Escherichia coli infection; Z68.41 Body mass index [BMI] 40.0-44.9, adult; R18.8 Other ascites; R74.01 Elevation of levels of liver transaminase levels; E80.6 Other disorders of bilirubin metabolism; I10 Essential (primary) hypertension; E66.01 Morbid (severe) obesity due to excess calories; R63.4 Abnormal weight loss; R60.1 Generalized edema; E88.09 Other disorders of plasma-protein metabolism, not elsewhere classified; K75.81 Nonalcoholic steatohepatitis (NASH); E87.6 Hypokalemia; K21.9 Gastro-esophageal reflux disease without esophagitis; F32.9 Major depressive disorder, single episode, unspecified; K57.30 Diverticulosis of large intestine without perforation or abscess without bleeding; M19.90 Unspecified osteoarthritis, unspecified site; D64.9 Anemia, unspecified; Z88.2 Allergy status to sulfonamides; K64.8 Other hemorrhoids; Z79.899 Other long term (current) drug therapy; R19.7 Diarrhea, unspecified

== ENCOUNTER → 2020-08-10 | Outpatient (REF) | payer MEDICARE, MEDICAID ==
[~2020-08-10] MED LIST changes: +ALDA50TA2 PO; +CHOL4PW PO; +LASI40TA9 PO; -NS 1,000 ML IV ONE; -PANTOPRAZOLE 20 MG TAB PO SCH; +POTA10TA17 PO; +XIFA550T PO
[2020-08-10 15:56] LABS: BASO # 0.1 10^3/uL (0.0-0.2); EOS # 0.5 10^3/uL (0.0-0.5); EOS % 3.9 % (0.0-3.0); HEMOGLOBIN 11.2 g/dl (12.0-15.5); LYMPH # 2.1 10^3/uL (1.5-5.0); LYMPH % 17.5 % (24.0-44.0); MEAN CORPUSCULAR HEMOGLOBIN 31.6 pg (27.0-33.0); MEAN CORPUSCULAR HGB CONC 30.3 g/dl (32.0-36.5); MEAN CORPUSCULAR VOLUME 104.5 fl (80.0-96.0); MONO # 0.9 10^3/uL (0.0-0.8); MONO % 7.8 % (0.0-5.0); NEUTROPHILS # 8.4 10^3/uL (1.5-8.5); NEUTROPHILS % 69.6 % (36.0-66.0); RED BLOOD COUNT 3.54 10^6/uL (4.00-5.40)
[2020-08-10 16:16] LABS: HEMOGLOBIN A1c 4.4 %
[2020-08-10 16:30] LABS: ALBUMIN 2.3 GM/DL (3.2-5.2); ALT/SGPT 35 U/L (12-78); BLOOD UREA NITROGEN 13 MG/DL (7-18); CALCIUM LEVEL 8.2 MG/DL (8.8-10.2); CARBON DIOXIDE LEVEL 25 MEQ/L (21-32); CHLORIDE LEVEL 107 MEQ/L (98-107); CHOLESTEROL LEVEL 170 MG/DL (<200); CHOLESTEROL RISK RATIO 7.727 (<5); CREATININE FOR GFR 1.06 MG/DL (0.55-1.30); FREE T3 1.8 PG/ML (2.2-4.0); FREE T4 1.42 NG/DL (0.76-1.46); GLOMERULAR FILTRATION RATE 56.1 (>45); GLUCOSE, FASTING 75 MG/DL (70-100); HDL CHOLESTEROL 22 MG/DL (>40); LDL CHOLESTEROL 118 MG/DL (<100); NON-HDL-C 148 MG/DL; POTASSIUM SERUM 4.5 MEQ/L (3.5-5.1); SODIUM LEVEL 141 MEQ/L (136-145); THYROXINE (T4) 7.9 UG/DL (4.5-12.0); TOTAL PROTEIN 5.8 GM/DL (6.4-8.2); TRIGLYCERIDES LEVEL 151 MG/DL (<150)
[2020-08-10 16:40] LABS: THYROID PEROXIDASE ANTIBODY < 28.0 U/ML (<60.0)
[2020-08-10 16:51] LABS: HEPATITIS B SURFACE ANTIGEN NEGATIVE (NEGATIVE)
[2020-08-10 17:17] LABS: HEPATITIS C VIRUS ABY INDEX < 0.0 INDEX (<0.8)
[2020-08-10 17:18] LABS: HEPATITIS B CORE ANTIBODY IGM NEGATIVE (NEGATIVE)
[2020-08-10 17:21] LABS: HEPATITIS A ANTIBODY IGM NEGATIVE (NEGATIVE)
[2020-08-20 11:25] LABS: METHYLMALONIC ACID 225 NMOL/L
[2020-08-20 11:26] LABS: 2-METHYLCITRIC ACID 163 NMOL/L
[2020-08-20 11:28] LABS: CYSTATHIONINE 2625 NMOL/L
== END ==
LOC: M SHH 15:43
PROVIDERS: ATTEND Nurse Practitioner Adult Health
DX: K21.9 Gastro-esophageal reflux disease without esophagitis (principal); M62.82 Rhabdomyolysis; Z79.899 Other long term (current) drug therapy; R94.5 Abnormal results of liver function studies; E87.1 Hypo-osmolality and hyponatremia; E87.6 Hypokalemia; E78.2 Mixed hyperlipidemia; R53.83 Other fatigue; R94.6 Abnormal results of thyroid function studies

== ENCOUNTER → 2020-08-21 | Outpatient (REF) | payer MEDICARE, MEDICAID | LOC: M LAB REF 14:36 | PROVIDERS: ATTEND Internal Medicine Gastroenterology | DX: R19.7 Diarrhea, unspecified (principal) ==

== ENCOUNTER → 2020-09-05 | Outpatient (REF) | payer MEDICARE, MEDICAID ==
[2020-09-05 12:27] LABS: BASO # 0.1 10^3/uL (0.0-0.2); BASO % 0.8 % (0.0-1.0); EOS # 0.3 10^3/uL (0.0-0.5); EOS % 2.6 % (0.0-3.0); HEMATOCRIT 38.1 % (36.0-47.0); LYMPH # 4.3 10^3/uL (1.5-5.0); LYMPH % 35.8 % (24.0-44.0); MEAN CORPUSCULAR HEMOGLOBIN 30.5 pg (27.0-33.0); MEAN CORPUSCULAR HGB CONC 31.5 g/dl (32.0-36.5); MEAN CORPUSCULAR VOLUME 96.7 fl (80.0-96.0); MONO # 1.6 10^3/uL (0.0-0.8); MONO % 13.3 % (0.0-5.0); NEUTROPHILS # 5.7 10^3/uL (1.5-8.5); NEUTROPHILS % 47.3 % (36.0-66.0); PLATELET COUNT, AUTOMATED 257 10^3/uL (150-450); RED BLOOD COUNT 3.94 10^6/uL (4.00-5.40); WHITE BLOOD COUNT 12.1 10^3/uL (4.0-10.0)
[2020-09-05 12:51] LABS: HEMOGLOBIN A1c 4.8 %
[2020-09-05 13:02] LABS: ALBUMIN 2.8 GM/DL (3.2-5.2); BILIRUBIN,TOTAL 1.8 MG/DL (0.2-1.0); CALCIUM LEVEL 8.9 MG/DL (8.8-10.2); CHOLESTEROL RISK RATIO 4.75 (<5); CREATININE FOR GFR 1.26 MG/DL (0.55-1.30); FREE T4 1.58 NG/DL (0.76-1.46); POTASSIUM SERUM 5.2 MEQ/L (3.5-5.1); THYROID STIMULATING HORMONE 6.16 uIU/ML (0.358-3.740); TOTAL PROTEIN 6.5 GM/DL (6.4-8.2)
== END ==
LOC: M LAB REF 11:38
PROVIDERS: ATTEND Nurse Practitioner Adult Health
DX: K21.9 Gastro-esophageal reflux disease without esophagitis (principal); M62.82 Rhabdomyolysis; E78.1 Pure hyperglyceridemia; R53.83 Other fatigue; E78.6 Lipoprotein deficiency; R94.6 Abnormal results of thyroid function studies; R94.5 Abnormal results of liver function studies; E78.2 Mixed hyperlipidemia; Z79.899 Other long term (current) drug therapy

== ENCOUNTER → 2020-09-18 | Outpatient (REF) | payer MEDICARE, MEDICAID ==
[2020-09-18 17:14] LABS: ALBUMIN 2.5 GM/DL (3.2-5.2); CALCIUM LEVEL 8.3 MG/DL (8.8-10.2); POTASSIUM SERUM 4.6 MEQ/L (3.5-5.1); TOTAL PROTEIN 5.7 GM/DL (6.4-8.2)
[2020-09-18 17:19] LABS: BASO # 0.1 10^3/uL (0.0-0.2); BASO % 0.8 % (0.0-1.0); EOS # 0.3 10^3/uL (0.0-0.5); EOS % 2.8 % (0.0-3.0); HEMATOCRIT 35.4 % (36.0-47.0); HEMOGLOBIN 11.2 g/dl (12.0-15.5); LYMPH # 2.3 10^3/uL (1.5-5.0); LYMPH % 21.4 % (24.0-44.0); MEAN CORPUSCULAR HEMOGLOBIN 30.1 pg (27.0-33.0); MEAN CORPUSCULAR HGB CONC 31.6 g/dl (32.0-36.5); MEAN CORPUSCULAR VOLUME 95.2 fl (80.0-96.0); MONO # 1.5 10^3/uL (0.0-0.8); MONO % 13.6 % (0.0-5.0); NEUTROPHILS # 6.6 10^3/uL (1.5-8.5); NEUTROPHILS % 61.1 % (36.0-66.0); PLATELET COUNT, AUTOMATED 262 10^3/uL (150-450); RED BLOOD COUNT 3.72 10^6/uL (4.00-5.40); WHITE BLOOD COUNT 10.8 10^3/uL (4.0-10.0)
== END ==
LOC: M LAB REF 16:28
PROVIDERS: ATTEND Nurse Practitioner Adult Health
DX: K21.9 Gastro-esophageal reflux disease without esophagitis (principal); K75.81 Nonalcoholic steatohepatitis (NASH); Z79.899 Other long term (current) drug therapy; E87.6 Hypokalemia

== ENCOUNTER → 2020-11-01 | Outpatient (CLI) | payer MEDICARE, MEDICAID ==
[~2020-11-01] MED LIST changes: -LISI-538; +LISI20TA33; +SPIR-10 PO
[2020-11-01 11:12] LABS: BASO # 0.1 10^3/uL (0.0-0.2); BASO % 1.1 % (0.0-1.0); EOS # 0.8 10^3/uL (0.0-0.5); EOS % 8.5 % (0.0-3.0); HEMATOCRIT 36.1 % (36.0-47.0); HEMOGLOBIN 11.2 g/dl (12.0-15.5); LYMPH # 2.3 10^3/uL (1.5-5.0); MEAN CORPUSCULAR HEMOGLOBIN 28.1 pg (27.0-33.0); MEAN CORPUSCULAR VOLUME 90.7 fl (80.0-96.0); MONO # 0.8 10^3/uL (0.0-0.8); MONO % 8.5 % (0.0-5.0); NEUTROPHILS % 55.7 % (36.0-66.0); PLATELET COUNT, AUTOMATED 233 10^3/uL (150-450); RED BLOOD COUNT 3.98 10^6/uL (4.00-5.40)
[2020-11-01 11:28] LABS: INR 1.22; PROTHROMBIN TIME 15.7 SECONDS (12.5-14.3)
[2020-11-01 11:41] LABS: ALBUMIN 3.2 GM/DL (3.2-5.2); ALT/SGPT 12 U/L (12-78); BILIRUBIN,TOTAL 1.6 MG/DL (0.2-1.0); BLOOD UREA NITROGEN 15 MG/DL (7-18); CARBON DIOXIDE LEVEL 27 MEQ/L (21-32); CHLORIDE LEVEL 106 MEQ/L (98-107); CREATININE FOR GFR 0.96 MG/DL (0.55-1.30); GLOMERULAR FILTRATION RATE > 60.0 (>45); GLUCOSE, FASTING 103 MG/DL (70-100); POTASSIUM SERUM 3.7 MEQ/L (3.5-5.1); SODIUM LEVEL 143 MEQ/L (136-145); TOTAL PROTEIN 6.9 GM/DL (6.4-8.2)
== END ==
LOC: M LAB 10:30
PROVIDERS: ATTEND Internal Medicine Gastroenterology
DX: K74.69 Other cirrhosis of liver (principal); K76.6 Portal hypertension

== ENCOUNTER → 2020-11-21 | Outpatient (CLI) | payer MEDICARE, MEDICAID ==
[~2020-11-21] MED LIST changes: +LIDOCAINE 1% MDV 20ML VIAL As Ordered ONE; +SODIUM BICARBONATE 8.4% INJ 50MEQ 50 ML VIAL As Ordered ONE
[2020-11-21 10:40] VITALS: BP 118/66
--- NOTE | 2020-11-21 10:45 | REP ---
INDICATION: KO COMPARISON: 07/20/2020 TECHNIQUE: Real time barroso scale ultrasound examination using curved array transducer. FINDINGS: Liver demonstrates coarsened echotexture with increased density and poor through transmission suggesting hepatocellular disease and/or hepatosteatosis. No focal hepatic lesions are identified. Small to moderate amount of perihepatic ascites noted. The pancreas is incompletely evaluated due to interposed bowel gas. Gallbladder demonstrates multiple mobile stones without wall thickening or pericholecystic fluid. Common bile duct (CBD) is minimally dilated to 8 mm. No obvious CBD obstruction or intrahepatic biliary dilatation noted. The right kidney is normal in reniform shape without hydronephrosis and measures 10.6 x 5.8 x 4.7 cm. IMPRESSION: 1. Findings consistent with hepatocellular disease and hepatosteatosis. 2. Moderate perihepatic ascites. 3. Cholelithiasis. Very subtle CBD dilatation to 8 mm is nonspecific. <Electronically signed by Nathen Meza > 11/21/20 1046
[2020-11-21 11:09] LABS: ASCITES FL COLOR RED (COLORLESS); SOURCE, BODY FLUID ASCITES
[2020-11-21 11:10] LABS: APPEARANCE, BODY FLUID CLOUDY (CLEAR)
[2020-11-21 11:34] LABS: SOURCE, BODY FLUID ALBUMIN ASCITES; SOURCE, BODY FLUID TOT PROTEIN ASCITES; TOTAL PROTEIN, BODY FLUID 2.6 G/DL (NOT ESTABLISHED)
--- NOTE | 2020-11-21 18:41 | REP ---
INDICATION: KO The patient has a history of ascites COMPARISON: None. TECHNIQUE: The procedure was performed by SARATH Dunbar, under the direct supervision of Dr. Jiménez The risks and benefits of the procedure were explained to the patient and an informed consent was obtained both verbally and written. Directly prior to the start of the procedure a formal time-out was completed in the procedure room. Preprocedural ultrasound revealed a trace amount of ascites around the liver. The skin was prepped and draped in a sterile fashion. Fifteen ML of buffered lidocaine was used as a local anesthetic. Under ultrasound guidance an 8-Danish multi side-hole skater catheter was inserted using trocar technique. FINDINGS: Approximately 120 mL of red tinged ascites was removed and sent to the lab for further analysis. The patient tolerated the procedure well and there were no immediate complications. After the appropriate amount of monitored convalescence, the patient was discharged from the department. IMPRESSION: Ultrasound-guided paracentesis with removal of 120 mL of ascites. <Electronically signed by Cici Salamanca > 11/21/20 1229 <Electronically signed by Nasir Jiménez > 11/21/20 [id number]
== END ==
LOC: M IRPRO 09:20
PROVIDERS: ATTEND Internal Medicine Gastroenterology
DX: K75.81 Nonalcoholic steatohepatitis (NASH) (principal)

== ENCOUNTER → 2021-02-26 | Outpatient (CLI) | payer MEDICARE, MEDICAID ==
[~2021-02-26] MED LIST changes: +BACTDSTA; +CALC-362 PO; -DOXY100C37 PO; +DOXY1CAP62 PO; -FAMO1TAB11; +FAMO1TAB11 PO; +FURO20TA2 PO; +HYDR-3363 PO; +LEVO25TA5 PO; -LIDOCAINE 1% MDV 20ML VIAL As Ordered ONE; -SODIUM BICARBONATE 8.4% INJ 50MEQ 50 ML VIAL As Ordered ONE; -SULF1TAB93; +TRIA1CR80 TOP; +ZOLO100T PO
[2021-02-26 10:29] LABS: BASO # 0.1 10^3/uL (0.0-0.2); BASO % 0.9 % (0.0-1.0); EOS # 0.6 10^3/uL (0.0-0.5); EOS % 6.1 % (0.0-3.0); HEMATOCRIT 34.4 % (36.0-47.0); HEMOGLOBIN 10.6 g/dl (12.0-15.5); LYMPH # 3.2 10^3/uL (1.5-5.0); LYMPH % 34.3 % (24.0-44.0); MEAN CORPUSCULAR HEMOGLOBIN 24.9 pg (27.0-33.0); MEAN CORPUSCULAR HGB CONC 30.8 g/dl (32.0-36.5); MEAN CORPUSCULAR VOLUME 80.8 fl (80.0-96.0); MONO # 0.7 10^3/uL (0.0-0.8); MONO % 7.5 % (2.0-8.0); NEUTROPHILS # 4.7 10^3/uL (1.5-8.5); NEUTROPHILS % 50.9 % (36.0-66.0); PLATELET COUNT, AUTOMATED 205 10^3/uL (150-450); RED BLOOD COUNT 4.26 10^6/uL (4.00-5.40); WHITE BLOOD COUNT 9.3 10^3/uL (4.0-10.0)
[2021-02-26 10:40] LABS: INR 1.04; PROTHROMBIN TIME 13.8 SECONDS (12.5-14.3)
[2021-02-26 11:17] LABS: ALBUMIN 3.2 GM/DL (3.2-5.2); ALT/SGPT 13 U/L (12-78); BILIRUBIN,TOTAL 1.1 MG/DL (0.2-1.0); BLOOD UREA NITROGEN 15 MG/DL (7-18); CALCIUM LEVEL 8.4 MG/DL (8.8-10.2); CARBON DIOXIDE LEVEL 28 MEQ/L (21-32); CHLORIDE LEVEL 109 MEQ/L (98-107); CREATININE FOR GFR 0.88 MG/DL (0.55-1.30); GLOMERULAR FILTRATION RATE > 60.0 (>45); GLUCOSE, FASTING 112 MG/DL (70-100); POTASSIUM SERUM 3.3 MEQ/L (3.5-5.1); SODIUM LEVEL 144 MEQ/L (136-145); TOTAL PROTEIN 6.1 GM/DL (6.4-8.2)
== END ==
LOC: M LAB 09:20
PROVIDERS: ATTEND Internal Medicine Gastroenterology
DX: K75.81 Nonalcoholic steatohepatitis (NASH) (principal); R97.8 Other abnormal tumor markers
CPT/HCPCS: 36415; 80053; 82378; 82784; 83516; 85025; 85610; G0463

== ENCOUNTER → 2021-02-27 | Outpatient (REF) | payer MEDICARE, MEDICAID ==
[~2021-02-27] MED LIST changes: -CALC-362 PO; +DOXY100C37 PO; -DOXY1CAP62 PO; +FAMO1TAB11; -FAMO1TAB11 PO; -FURO20TA2 PO; -HYDR-3363 PO; -LEVO25TA5 PO; -TRIA1CR80 TOP; -ZOLO100T PO
== END ==
LOC: M SFHCWAGY 18:00
PROVIDERS: ATTEND Nurse Practitioner Women's Health
DX: Z12.4 Encounter for screening for malignant neoplasm of cervix (principal)
CPT/HCPCS: 87624; G0123

== ENCOUNTER → 2021-02-27 | Outpatient (CLI) | payer MEDICAID, MEDICARE ==
--- NOTE | 2021-02-27 16:07 | REPMRS ---
Patient History The patient states she had a clinical breast exam in 02/2021. Patient is postmenopausal, has history of other cancer at age 49, and is nulliparous. Family history of breast cancer in maternal aunt, breast cancer in maternal aunt, breast cancer at age 49 in niece. No Hormone Replacement Therapy Tomosynthesis is performed. Volpara breast density is b. [facility] lifetime risk of breast cancer 17.1%. Patient states no breast complaints today. Patient has signed MRS History Sheet. Digital Woman Screen Mammo: February 27, 2021 - Exam #: [id number] Bilateral CC and MLO view(s) were taken. Technologist: Alma Sevilla, Technologist Prior study comparison: September 01, 2019, bilateral digital woman screen mammo performed at [facility]. August 31, 2018, bilateral digital woman screen mammo performed at [facility]. FINDINGS: There are scattered fibroglandular densities. There has been no change in the appearance of the mammogram from the prior studies. There is a mild amount of residual fibroglandular tissue which is fairly symmetric. There is no interval development of dominant mass, architectural distortion, or clustered microcalcification suggestive of malignancy. Assessment: BI-RADS/ACR category 1 mammogram. Negative Mammogram. Recommendation Routine screening mammogram in 1 year (for women over age 40). This mammogram was interpreted with the aid of an FDA-approved computer-aided dectection system. Electronically Signed By: Nasir Jiménez MD 02/27/21 0161
== END ==
LOC: M WHC 14:26
PROVIDERS: ATTEND Nurse Practitioner Women's Health
DX: Z12.31 Encounter for screening mammogram for malignant neoplasm of breast (principal)

== ENCOUNTER → 2021-03-29 | Outpatient (CLI) | payer MEDICARE, MEDICAID ==
[~2021-03-29] MED LIST changes: +CALC-362 PO; +DOXY-443 PO; -DOXY100C37 PO; -FAMO1TAB11; +FAMO1TAB11 PO; +FURO20TA2 PO; +HYDR-3363 PO; +LEVO25TA5 PO; +LEVO50TA5 PO; +LEVOTAB10 PO; +LOPE2TAB12 PO; +OMEP40CA5 PO; +TRIA1CR80 TOP; +ZOLO100T PO
[2021-03-29 13:34] LABS: BLOOD UREA NITROGEN 17 MG/DL (7-18); CREATININE FOR GFR 0.96 MG/DL (0.55-1.30); GLOMERULAR FILTRATION RATE > 60.0 (>45)
== END ==
LOC: M LAB 11:19
PROVIDERS: ATTEND Internal Medicine Gastroenterology
DX: K74.60 Unspecified cirrhosis of liver (principal)

== ENCOUNTER → 2021-04-04 | Outpatient (CLI) | payer MEDICARE ==
[~2021-04-04] MED LIST changes: -DOXY-443 PO; +DOXY1CAP62 PO; +GASTROGRAFIN SOLUTION 30ML (Q9963) As Ordered ONE; +ISOVUE-370 76% 100ML VIAL As Ordered ONE; -LEVO50TA5 PO; -LOPE2TAB12 PO; -OMEP40CA5 PO
--- NOTE | 2021-04-04 15:51 | REP ---
INDICATION: ELEVATED CEA. COMPARISON: Comparison study 26 July 2020.. TECHNIQUE: Helical scanning is acquired and 3 mm axial images re-formatted. Coronal and sagittal MPR images are generated. The CT contrast enhancement dose is 100 mL of intravenous Isovue 370. Oral contrast was also administered. FINDINGS: Preliminary digital tobacco hanger radiograph shows an unremarkable bowel gas pattern. The lung bases are clear on axial CT images. There is mild perihepatic ascites noted in the upper abdomen. Mild diffuse fatty infiltration of the liver is seen. No focal liver lesion is seen. Cholelithiasis is noted with small gravel-like stones in the dependent portion of the gallbladder. Minimal gallbladder wall thickening. No significant splenic lesion is seen. There is a stable 2.1 cm nodule in the left adrenal gland. The kidneys enhance symmetrically and are morphologically intact. No retroperitoneal mass or adenopathy is observed. There is mild ascites tracking the right pericolic gutter and in the pelvic reflections. No uterine or ovarian abnormality is observed. Urinary bladder is intact. Small and large bowel loops are unremarkable. No obstructive lesion is seen. Oral contrast is seen extending into the colon. No abdominal wall defect is seen. There are 2 small bowel mesenteric lymph nodes visible today which were not clearly apparent previously. The largest of these measures 1.7 cm in greatest diameter. Adjacent to this there is a 2nd lymph node measuring 1.2 cm in greatest diameter. This also does not appear to have been prominent previously. Patient is status post gastric bypass surgery. There is an edematous pattern surrounding the gastrojejunostomy in these central abdomen. This raises the question of ulcer or other inflammatory change with reactive lymph nodes. IMPRESSION: There is mild abdominal ascites actually somewhat decreased in amount from the July 26, 2020 study. Cholelithiasis and minimal gallbladder wall thickening. Stable left adrenal nodule. There are 2 slightly prominent lymph nodes in the small bowel mesentery as a new finding. Inflammatory edema pattern associated with the gastrojejunostomy question reactive nodes. Consider follow-up study. <Electronically signed by Laith Roblero > 04/04/21 [id number]
== END ==
LOC: M RAD 13:32
PROVIDERS: ATTEND Internal Medicine Gastroenterology
DX: R97.0 Elevated carcinoembryonic antigen [CEA] (principal); R18.8 Other ascites; K74.69 Other cirrhosis of liver; Z98.84 Bariatric surgery status; K80.20 Calculus of gallbladder without cholecystitis without obstruction
CPT/HCPCS: 74177; Q9963; Q9967

== ENCOUNTER → 2021-05-02 | Outpatient (REF) | payer MEDICARE, MEDICAID ==
[~2021-05-02] MED LIST changes: -GASTROGRAFIN SOLUTION 30ML (Q9963) As Ordered ONE; -ISOVUE-370 76% 100ML VIAL As Ordered ONE
== END ==
LOC: M LAB REF 14:12
PROVIDERS: ATTEND Physician Assistant
DX: L30.8 Other specified dermatitis (principal)

== ENCOUNTER → 2021-05-16 | Outpatient (CLI) | payer MEDICARE, MEDICAID | LOC: M LAB 17:07 | PROVIDERS: ATTEND Internal Medicine Gastroenterology | DX: K75.81 Nonalcoholic steatohepatitis (NASH) (principal); R97.8 Other abnormal tumor markers ==

== ENCOUNTER → 2021-08-19 | Outpatient (CLI) | payer MEDICARE, MEDICAID ==
[~2021-08-19] MED LIST changes: +DOXY-443 PO; -DOXY1CAP62 PO; +LEVO50TA5 PO; +LOPE2TAB12 PO; +OMEP40CA5 PO
== END ==
LOC: M LABSMTC 10:34
PROVIDERS: ATTEND Anesthesiology
DX: Z01.812 Encounter for preprocedural laboratory examination (principal); Z20.822 Contact with and (suspected) exposure to COVID-19

== ENCOUNTER → 2021-09-10 | Outpatient (CLI) | payer MEDICARE, MEDICAID ==
[~2021-09-10] MED LIST changes: +GASTROGRAFIN SOLUTION 30ML (Q9963) As Ordered ONE; +ISOVUE-370 76% 100ML VIAL As Ordered ONE; +OMEP-221 PO; -OMEP40CA5 PO
--- NOTE | 2021-09-11 08:48 | REP ---
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 COMPARISON: 04/04/2021 and 07/26/2020 TECHNIQUE: Standard helical technique after the intravenous administration of 100 cc Isovue 370. Oral bowel preparatory contrast was administered prior to the exam. FINDINGS: The lung bases are clear and unchanged. The liver and spleen are unchanged. Note is again made of cholelithiasis. There is no significant change in appearance of the pancreas, adrenal glands, or kidneys. There is a stable left adrenal gland nodule. There is no significant change in the appearance of the mesenteries. The 2 slightly enlarged mesenteric lymph node seen on the prior exam are stable. No new mesenteric adenopathy has developed. The suspected mild edema pattern seen in the central mesentery surrounding the gastrojejunostomy has abated. Bone window technique throughout the exam shows no significant change in the osseous structures. The colon is noncontrast opacified limiting evaluation of it. The abdominal aorta and para-aortic regions are stable. The ascites seen previously has resolved. There is a trace amount of free fluid in the pelvis. IMPRESSION: 1. There has been some improvement as described above. 2. There are stable findings as described above. <Electronically signed by Corey Singleton > 09/11/21 [id number]
== END ==
LOC: M RAD 13:48
PROVIDERS: ATTEND Internal Medicine Gastroenterology
DX: R97.8 Other abnormal tumor markers (principal); K74.69 Other cirrhosis of liver; R93.3 Abnormal findings on diagnostic imaging of other parts of digestive tract
CPT/HCPCS: 74177; Q9963; Q9967

== ENCOUNTER → 2021-10-09 | Outpatient (CLI) | payer MEDICARE, MEDICAID ==
[~2021-10-09] MED LIST changes: -GASTROGRAFIN SOLUTION 30ML (Q9963) As Ordered ONE; -ISOVUE-370 76% 100ML VIAL As Ordered ONE; -OMEP-221 PO; +OMEP40CA5 PO
== END ==
LOC: M LABSMTC 13:33
PROVIDERS: ATTEND Anesthesiology
DX: Z01.812 Encounter for preprocedural laboratory examination (principal); Z20.822 Contact with and (suspected) exposure to COVID-19

== ENCOUNTER 2021-10-14 13:29 | Day surgery (SDC) | payer MEDICARE, MEDICAID ==
[~2021-10-14] VITALS: Ht 152.4 cm; Wt 100.2 kg
[~2021-10-14 13:29] MED LIST changes: +NS 1,000 ML IV ONE
[2021-10-14] MEDS ORDERED: propofoL 500 MG/50 ML VIAL As Ordered ONE (14:53)
[2021-10-14] MEDS ORDERED: fentaNYL 100 MCG/2 ML INJECTION (J3010) As Ordered ONE (14:53)
[2021-10-14] MEDS ORDERED: LIDOCAINE 2% 100MG/5ML SDV (FOR ANES.) As Ordered ONE (14:53)
[2021-10-14 16:20] VITALS: BP 127/59
== END 2021-10-14 16:28 | disposition home or self-care (01) ==
LOC: M OPP 13:29
PROVIDERS: ATTEND Internal Medicine Gastroenterology
DX: I85.00 Esophageal varices without bleeding (principal); Z98.0 Intestinal bypass and anastomosis status; D50.9 Iron deficiency anemia, unspecified; K74.60 Unspecified cirrhosis of liver; Z79.899 Other long term (current) drug therapy; Z88.2 Allergy status to sulfonamides; Z88.8 Allergy status to other drugs, medicaments and biological substances; Z86.19 Personal history of other infectious and parasitic diseases; Z87.891 Personal history of nicotine dependence; Z80.1 Family history of malignant neoplasm of trachea, bronchus and lung
CPT/HCPCS: 43235; J3010

== ENCOUNTER → 2022-02-13 | Outpatient (REF) | payer MEDICARE, MEDICAID ==
[~2022-02-13] MED LIST changes: -NS 1,000 ML IV ONE
== END ==
LOC: M SFHCDERM 17:29
PROVIDERS: ATTEND Physician Assistant
DX: L53.1 Erythema annulare centrifugum (principal)
CPT/HCPCS: 11104; 88305; G0463

== ENCOUNTER → 2022-02-24 | Outpatient (CLI) | payer MEDICARE, MEDICAID ==
[2022-02-26 23:11] LABS: ANA (HEP2) Negative (.)
== END ==
LOC: M LAB 14:39
PROVIDERS: ATTEND Physician Assistant
DX: M35.9 Systemic involvement of connective tissue, unspecified (principal)

== ENCOUNTER → 2022-03-04 | Outpatient (CLI) | payer MEDICARE, MEDICAID ==
[~2022-03-04] MED LIST changes: +GASTROGRAFIN SOLUTION 30ML (Q9963) As Ordered ONE; +ISOVUE-370 76% 100ML VIAL As Ordered ONE
[2022-03-04 13:21] LABS: BASO # 0.1 10^3/uL (0.0-0.2); BASO % 1.1 % (0.0-1.0); EOS # 0.6 10^3/uL (0.0-0.5); EOS % 7.9 % (0.0-3.0); HEMATOCRIT 42.1 % (36.0-47.0); HEMOGLOBIN 13.7 g/dl (12.0-15.5); LYMPH # 2.2 10^3/uL (1.5-5.0); LYMPH % 31.2 % (24.0-44.0); MEAN CORPUSCULAR HEMOGLOBIN 29.8 pg (27.0-33.0); MEAN CORPUSCULAR HGB CONC 32.5 g/dl (32.0-36.5); MEAN CORPUSCULAR VOLUME 91.7 fl (80.0-96.0); MONO # 0.5 10^3/uL (0.0-0.8); MONO % 6.7 % (2.0-8.0); NEUTROPHILS # 3.7 10^3/uL (1.5-8.5); NEUTROPHILS % 52.8 % (36.0-66.0); PLATELET COUNT, AUTOMATED 148 10^3/uL (150-450); RED BLOOD COUNT 4.59 10^6/uL (4.00-5.40)
[2022-03-04 13:31] LABS: INR 0.97; PROTHROMBIN TIME 13.3 SECONDS (12.7-14.5)
[2022-03-04 14:04] LABS: ALBUMIN 3.2 GM/DL (3.2-5.2); CALCIUM LEVEL 8.3 MG/DL (8.8-10.2); CREATININE FOR GFR 1.09 MG/DL (0.55-1.30); GLOMERULAR FILTRATION RATE 54.1 (>45); POTASSIUM SERUM 4.1 MEQ/L (3.5-5.1); TOTAL PROTEIN 6.4 GM/DL (6.4-8.2)
== END ==
LOC: M RAD 12:36
PROVIDERS: ATTEND Internal Medicine Gastroenterology
DX: R97.8 Other abnormal tumor markers (principal); K74.69 Other cirrhosis of liver; R18.8 Other ascites; E27.9 Disorder of adrenal gland, unspecified; Z98.84 Bariatric surgery status; I25.10 Atherosclerotic heart disease of native coronary artery without angina pectoris; M51.36 Other intervertebral disc degeneration, lumbar region
CPT/HCPCS: 36415; 74177; 80053; 82378; 85025; 85610; Q9963; Q9967

== ENCOUNTER → 2022-04-30 | Outpatient (CLI) | payer MEDICARE, MEDICAID ==
[~2022-04-30] MED LIST changes: -GASTROGRAFIN SOLUTION 30ML (Q9963) As Ordered ONE; -ISOVUE-370 76% 100ML VIAL As Ordered ONE; +POTA-150 PO; -POTA10TA17 PO
== END ==
LOC: M WHC 13:57
PROVIDERS: ATTEND Nurse Practitioner Family
DX: Z12.31 Encounter for screening mammogram for malignant neoplasm of breast (principal)

== ENCOUNTER → 2022-10-14 | Outpatient (CLI) | payer MEDICARE, MEDICAID ==
[2022-10-14 17:34] LABS: BASO # 0.1 10^3/uL (0.0-0.2); BASO % 1.3 % (0.0-1.0); EOS # 0.4 10^3/uL (0.0-0.5); EOS % 5.8 % (0.0-3.0); HEMATOCRIT 44.2 % (36.0-47.0); HEMOGLOBIN 14.1 g/dl (12.0-15.5); LYMPH # 1.8 10^3/uL (1.5-5.0); LYMPH % 25.9 % (24.0-44.0); MEAN CORPUSCULAR HEMOGLOBIN 28.8 pg (27.0-33.0); MEAN CORPUSCULAR HGB CONC 31.9 g/dl (32.0-36.5); MEAN CORPUSCULAR VOLUME 90.2 fl (80.0-96.0); MONO # 0.5 10^3/uL (0.0-0.8); MONO % 7.1 % (2.0-8.0); NEUTROPHILS # 4.2 10^3/uL (1.5-8.5); NEUTROPHILS % 59.6 % (36.0-66.0); PLATELET COUNT, AUTOMATED 138 10^3/uL (150-450)
[2022-10-14 17:39] LABS: BILIRUBIN,DIRECT 0.3 MG/DL (<0.4)
[2022-10-14 17:41] LABS: ALBUMIN 3.5 G/DL (3.2-5.2); BILIRUBIN,TOTAL 0.8 MG/DL (0.3-1.2); CREATININE FOR GFR 1.02 MG/DL (0.55-1.30); GLOMERULAR FILTRATION RATE 58.3 (>45); TOTAL PROTEIN 6.2 G/DL (5.7-8.2)
[2022-10-14 17:45] LABS: INR 1.02; PROTHROMBIN TIME 13.6 SECONDS (12.5-14.5)
== END ==
LOC: M WUC 14:10
PROVIDERS: ATTEND Internal Medicine Gastroenterology
DX: R97.0 Elevated carcinoembryonic antigen [CEA] (principal); K74.69 Other cirrhosis of liver; R74.8 Abnormal levels of other serum enzymes; R97.8 Other abnormal tumor markers

== ENCOUNTER → 2022-10-22 | Outpatient (CLI) | payer MEDICARE, MEDICAID ==
[~2022-10-22] MED LIST changes: +GASTROGRAFIN SOLUTION 30ML As Ordered ONE; +ISOVUE-370 76% 100ML VIAL As Ordered ONE
== END ==
LOC: M RAD 15:26
PROVIDERS: ATTEND Internal Medicine Gastroenterology
DX: R97.8 Other abnormal tumor markers (principal); K74.69 Other cirrhosis of liver
CPT/HCPCS: 74177; Q9963; Q9967

== ENCOUNTER → 2023-04-22 | Outpatient (CLI) | payer MEDICARE, MEDICAID ==
[~2023-04-22] MED LIST changes: -GASTROGRAFIN SOLUTION 30ML As Ordered ONE; -ISOVUE-370 76% 100ML VIAL As Ordered ONE
[2023-04-22 09:27] LABS: BASO # 0.1 10^3/uL (0.0-0.2); BASO % 0.5 % (0.0-1.0); EOS # 0.4 10^3/uL (0.0-0.5); EOS % 2.1 % (0.0-3.0); HEMOGLOBIN 15.7 g/dl (12.0-15.5); LYMPH # 6.5 10^3/uL (1.5-5.0); LYMPH % 35.5 % (24.0-44.0); MEAN CORPUSCULAR HEMOGLOBIN 28.2 pg (27.0-33.0); MEAN CORPUSCULAR VOLUME 88.1 fl (80.0-96.0); MONO # 1.3 10^3/uL (0.0-0.8); MONO % 7.4 % (2.0-8.0); NEUTROPHILS # 9.8 10^3/uL (1.5-8.5); PLATELET COUNT, AUTOMATED 217 10^3/uL (150-450); RED BLOOD COUNT 5.56 10^6/uL (4.00-5.40); WHITE BLOOD COUNT 18.2 10^3/uL (4.0-10.0)
[2023-04-22 09:40] LABS: INR 0.97; PROTHROMBIN TIME 13.1 SECONDS (12.5-14.5)
[2023-04-22 09:55] LABS: ALBUMIN 3.6 G/DL (3.2-5.2); ALKALINE PHOSPHATASE 142 U/L (46-116); ALT/SGPT 19 U/L (7.0-40); AST/SGOT 13 U/L (<34); BILIRUBIN,TOTAL 1.1 MG/DL (0.3-1.2); BLOOD UREA NITROGEN 20 MG/DL (9-23); CALCIUM LEVEL 8.8 MG/DL (8.3-10.6); CARBON DIOXIDE LEVEL 30 MMOL/L (20-31); CHLORIDE LEVEL 102 MMOL/L (98-107); CREATININE FOR GFR 0.93 MG/DL (0.55-1.30); GLOMERULAR FILTRATION RATE > 60.0 (>45); GLUCOSE, FASTING 108 MG/DL (74-106); POTASSIUM SERUM 4.1 MMOL/L (3.5-5.1); SODIUM LEVEL 140 MMOL/L (136-145); TOTAL PROTEIN 6.6 G/DL (5.7-8.2)
== END ==
LOC: M RAD 08:28
PROVIDERS: ATTEND Internal Medicine Gastroenterology
DX: K74.69 Other cirrhosis of liver (principal); R93.5 Abnormal findings on diagnostic imaging of other abdominal regions, including retroperitoneum

== ENCOUNTER → 2023-07-16 | Day surgery (SDC) | payer MEDICARE, MEDICAID ==
[~2023-07-16] VITALS: Ht 149.9 cm; Wt 124.3 kg
[~2023-07-16] MED LIST changes: +LIDOCAINE 2% 100MG/5ML SDV (FOR ANES.) As Ordered ONE; +NS 1,000 ML IV ONE; +fentaNYL 100 MCG/2 ML INJECTION As Ordered ONE; +propofoL 200 MG/20 ML VIAL As Ordered ONE
[2023-07-16 11:22] VITALS: TEMP 98.1
[2023-07-16 11:50] VITALS: BP 143/65; O2SAT 98
== END | disposition home or self-care (01) ==
LOC: M OPP 10:03
PROVIDERS: ATTEND Internal Medicine Gastroenterology
DX: Z86.010 Personal history of colon polyps (principal); K63.5 Polyp of colon; K57.30 Diverticulosis of large intestine without perforation or abscess without bleeding; K64.8 Other hemorrhoids; I85.00 Esophageal varices without bleeding; Z98.0 Intestinal bypass and anastomosis status; K74.60 Unspecified cirrhosis of liver; I10 Essential (primary) hypertension; K21.9 Gastro-esophageal reflux disease without esophagitis; E28.2 Polycystic ovarian syndrome; F32.A Depression, unspecified; Z86.19 Personal history of other infectious and parasitic diseases; Z88.2 Allergy status to sulfonamides; Z79.899 Other long term (current) drug therapy
CPT/HCPCS: 43235; 45385; 88305; J3010

== ENCOUNTER → 2023-08-06 | Outpatient (CLI) | payer MEDICARE, MEDICAID ==
[~2023-08-06] MED LIST changes: -LIDOCAINE 2% 100MG/5ML SDV (FOR ANES.) As Ordered ONE; +METHACHOLINE KIT INH ONE; -NS 1,000 ML IV ONE; -fentaNYL 100 MCG/2 ML INJECTION As Ordered ONE; -propofoL 200 MG/20 ML VIAL As Ordered ONE
== END ==
LOC: M CARPUL 13:50
PROVIDERS: ATTEND Physician Assistant
DX: R06.00 Dyspnea, unspecified (principal)
CPT/HCPCS: 94070; 95070; J7674

== ENCOUNTER → 2023-11-03 | Outpatient (CLI) | payer MEDICARE, MEDICAID ==
[~2023-11-03] MED LIST changes: -METHACHOLINE KIT INH ONE
== END ==
LOC: M WHC 08:51
PROVIDERS: ATTEND Internal Medicine Gastroenterology
DX: K74.69 Other cirrhosis of liver (principal); Z90.49 Acquired absence of other specified parts of digestive tract

== ENCOUNTER → 2023-11-30 | Outpatient (CLI) | payer MEDICARE, MEDICAID ==
[2023-11-30 16:27] LABS: INR 1.06; PROTHROMBIN TIME 13.5 SECONDS (12.5-14.5)
[2023-11-30 16:59] LABS: ALBUMIN 3.5 G/DL (3.2-5.2); ALKALINE PHOSPHATASE 118 U/L (46-116); ALT/SGPT 11 U/L (7.0-40); AST/SGOT 19 U/L (<34); BILIRUBIN,DIRECT 0.3 MG/DL (<0.4); BILIRUBIN,TOTAL 0.8 MG/DL (0.3-1.2); BLOOD UREA NITROGEN 19 MG/DL (9-23); CREATININE FOR GFR 0.93 MG/DL (0.55-1.30); GLOMERULAR FILTRATION RATE > 60.0 (>45)
== END ==
LOC: M WUC 13:38
PROVIDERS: ATTEND Internal Medicine Gastroenterology
DX: K74.69 Other cirrhosis of liver (principal); R74.8 Abnormal levels of other serum enzymes

== ENCOUNTER → 2023-11-30 | Outpatient (CLI) | payer MEDICARE, MEDICAID ==
[2023-11-30 16:31] LABS: HEMATOCRIT 45.2 % (36.0-47.0); HEMOGLOBIN 14.8 g/dl (12.0-15.5); MEAN CORPUSCULAR HEMOGLOBIN 28.6 pg (27.0-33.0); MEAN CORPUSCULAR HGB CONC 32.7 g/dl (32.0-36.5); MEAN CORPUSCULAR VOLUME 87.3 fl (80.0-96.0); PLATELET COUNT, AUTOMATED 146 10^3/uL (150-450); RED BLOOD COUNT 5.18 10^6/uL (4.00-5.40); WHITE BLOOD COUNT 6.9 10^3/uL (4.0-10.0)
[2023-11-30 16:57] LABS: ALBUMIN 3.5 G/DL (3.2-5.2); ALKALINE PHOSPHATASE 115 U/L (46-116); ALT/SGPT 11 U/L (7.0-40); AST/SGOT 19 U/L (<34); BILIRUBIN,TOTAL 0.8 MG/DL (0.3-1.2); BLOOD UREA NITROGEN 19 MG/DL (9-23); CALCIUM LEVEL 8.5 MG/DL (8.3-10.6); CARBON DIOXIDE LEVEL 29 MMOL/L (20-31); CHLORIDE LEVEL 107 MMOL/L (98-107); CREATININE FOR GFR 0.93 MG/DL (0.55-1.30); GLOMERULAR FILTRATION RATE > 60.0 (>45); GLUCOSE, FASTING 113 MG/DL (74-106); HEMOGLOBIN A1c 5.5 % (4.0-6.0); POTASSIUM SERUM 4.5 MMOL/L (3.5-5.1); SODIUM LEVEL 141 MMOL/L (136-145); TOTAL PROTEIN 6.2 G/DL (5.7-8.2)
[2023-11-30 17:00] LABS: FREE T4 1.14 NG/DL (0.89-1.76)
[2023-11-30 17:01] LABS: THYROID STIMULATING HORMONE 2.355 uIU/ML (0.55-4.78)
== END ==
LOC: M WUC 13:41
PROVIDERS: ATTEND Registered Nurse
DX: D69.6 Thrombocytopenia, unspecified (principal); K75.81 Nonalcoholic steatohepatitis (NASH); R73.01 Impaired fasting glucose; E03.9 Hypothyroidism, unspecified; R97.0 Elevated carcinoembryonic antigen [CEA]; K74.69 Other cirrhosis of liver; R74.8 Abnormal levels of other serum enzymes

== ENCOUNTER → 2024-04-07 | Outpatient (REF) | payer MEDICARE, MEDICAID ==
[~2024-04-07] MED LIST changes: +DOXY-323 PO; -DOXY-443 PO
== END ==
LOC: M SFHCDERM 15:02
PROVIDERS: ATTEND Physician Assistant
DX: I77.6 Arteritis, unspecified (principal)

== ENCOUNTER → 2024-04-07 | Outpatient (CLI) | payer MEDICARE, MEDICAID ==
[2024-04-07 17:39] LABS: HEMATOCRIT 42.8 % (36.0-47.0); HEMOGLOBIN 13.8 g/dl (12.0-15.5); MEAN CORPUSCULAR HEMOGLOBIN 28.1 pg (27.0-33.0); MEAN CORPUSCULAR HGB CONC 32.2 g/dl (32.0-36.5); MEAN CORPUSCULAR VOLUME 87.2 fl (80.0-96.0); PLATELET COUNT, AUTOMATED 142 10^3/uL (150-450); RED BLOOD COUNT 4.91 10^6/uL (4.00-5.40); WHITE BLOOD COUNT 6.7 10^3/uL (4.0-10.0)
[2024-04-07 17:52] LABS: APPEARANCE, URINE HAZY (CLEAR); BACTERIA, URINE AUTO NEGATIVE (NEGATIVE); BILIRUBIN, URINE AUTO NEGATIVE (NEGATIVE); BLOOD, URINE BLOOD 1+ (NEGATIVE); COLOR, URINE YELLOW (YELLOW); GLUCOSE, URINE (UA) AUTO NEGATIVE (NEGATIVE); KETONE, URINE AUTO TRACE mg/dL (NEGATIVE); LEUKOCYTE ESTERASE, URINE AUTO TRACE (NEGATIVE); MUCUS, URINE SMALL (NEGATIVE); NITRITE, URINE AUTO NEGATIVE (NEGATIVE); PROTEIN, URINE AUTO NEGATIVE (NEGATIVE); RBC, URINE AUTO 4 /HPF (0-3); SPECIFIC GRAVITY URINE AUTO 1.021 (1.002-1.035); SQUAMOUS EPITHELIAL CELL UR AU 7 /HPF (0-6); UROBILINOGEN, URINE AUTO 0.2 mg/dL (0.0-2.0); WBC, URINE AUTO 8 /HPF (0-3)
[2024-04-07 18:22] LABS: ALBUMIN 3.4 G/DL (3.2-5.2); ALKALINE PHOSPHATASE 113 U/L (46-116); ALT/SGPT 14 U/L (7.0-40); AST/SGOT 21 U/L (<34); BLOOD UREA NITROGEN 16 MG/DL (9-23); CALCIUM LEVEL 8.7 MG/DL (8.3-10.6); CARBON DIOXIDE LEVEL 25 MMOL/L (20-31); CHLORIDE LEVEL 107 MMOL/L (98-107); CREATININE FOR GFR 0.99 MG/DL (0.55-1.30); GLOMERULAR FILTRATION RATE > 60.0 (>45); GLUCOSE, FASTING 92 MG/DL (74-106); POTASSIUM SERUM 4.4 MMOL/L (3.5-5.1); SODIUM LEVEL 141 MMOL/L (136-145); TOTAL PROTEIN 6.3 G/DL (5.7-8.2)
[2024-04-08 19:04] LABS: CRYOGLOBULINS NEGATIVE (NEGATIVE)
[2024-04-14 02:18] LABS: ANCA SCREEN REFLEX Negative (Negative)
== END ==
LOC: M LAB 15:32
PROVIDERS: ATTEND Physician Assistant
DX: I77.6 Arteritis, unspecified (principal)

== ENCOUNTER → 2024-06-24 | Outpatient (CLI) | payer MEDICARE, MEDICAID ==
[~2024-06-24] MED LIST changes: -DOXY-323 PO; +DOXY-441 PO
== END ==
LOC: M WHC 09:07
PROVIDERS: ATTEND Internal Medicine Gastroenterology
DX: K74.69 Other cirrhosis of liver (principal); R16.0 Hepatomegaly, not elsewhere classified; K80.20 Calculus of gallbladder without cholecystitis without obstruction; K75.81 Nonalcoholic steatohepatitis (NASH)

== ENCOUNTER → 2024-06-24 | Outpatient (CLI) | payer MEDICARE, MEDICAID ==
[2024-06-24 13:03] LABS: INR 1.11
[2024-06-24 13:29] LABS: ALBUMIN 3.5 G/DL (3.2-5.2); ALKALINE PHOSPHATASE 121 U/L (46-116); ALT/SGPT 11 U/L (7.0-40); AST/SGOT 20 U/L (<34); BILIRUBIN,DIRECT 0.3 MG/DL (<0.4); BILIRUBIN,TOTAL 0.7 MG/DL (0.3-1.2); TOTAL PROTEIN 6.7 G/DL (5.7-8.2)
== END ==
LOC: M PLALAB 09:08
PROVIDERS: ATTEND Internal Medicine Gastroenterology
DX: K74.69 Other cirrhosis of liver (principal); K75.81 Nonalcoholic steatohepatitis (NASH)

== ENCOUNTER → 2024-08-11 | Outpatient (CLI) | payer MEDICARE, MEDICAID | LOC: M PLALAB 13:09 | PROVIDERS: ATTEND Physician Assistant | DX: D69.6 Thrombocytopenia, unspecified (principal) ==

== ENCOUNTER → 2024-08-17 | Outpatient (CLI) | payer MEDICAID, MEDICARE | LOC: M WHC 13:23 | PROVIDERS: ATTEND Registered Nurse | DX: Z12.31 Encounter for screening mammogram for malignant neoplasm of breast (principal); Z13.820 Encounter for screening for osteoporosis; M85.851 Other specified disorders of bone density and structure, right thigh; M85.852 Other specified disorders of bone density and structure, left thigh ==

== ENCOUNTER → 2024-10-04 | Outpatient (CLI) | payer MEDICARE ==
[~2024-10-04] MED LIST changes: -ALIG4CAP PO; +ALIG4CAP3 PO; +CREO3600 PO; +HYDR50TA70 PO; +VIBE75TA PO
== END ==
LOC: M WUC 10:36
PROVIDERS: ATTEND Registered Nurse
DX: R05.9 Cough, unspecified (principal)

== ENCOUNTER 2024-11-22 12:02 | Day surgery (SDC) | payer MEDICARE, MEDICAID ==
[~2024-11-22] VITALS: Ht 149.9 cm; Wt 120.2 kg
[~2024-11-22 12:02] MED LIST changes: +LIDOCAINE 2% 100MG/5ML SDV (FOR ANES.) As Ordered ONE; +propofoL 200 MG/20 ML VIAL As Ordered ONE
[2024-11-22 13:20] VITALS: TEMP 97.5
[2024-11-22 13:36] VITALS: BP 136/61; O2SAT 98
== END 2024-11-22 13:51 | disposition home or self-care (01) ==
LOC: M OPP 12:02
PROVIDERS: ATTEND Internal Medicine Gastroenterology
DX: I85.00 Esophageal varices without bleeding (principal); Z98.0 Intestinal bypass and anastomosis status; Z88.2 Allergy status to sulfonamides; Z79.899 Other long term (current) drug therapy; Z98.84 Bariatric surgery status; Z87.891 Personal history of nicotine dependence

== ENCOUNTER → 2025-01-18 | Outpatient (CLI) | payer MEDICARE, MEDICAID ==
[~2025-01-18] MED LIST changes: -LIDOCAINE 2% 100MG/5ML SDV (FOR ANES.) As Ordered ONE; -propofoL 200 MG/20 ML VIAL As Ordered ONE
== END ==
LOC: M RAD 09:08
PROVIDERS: ATTEND Internal Medicine Gastroenterology
DX: K75.81 Nonalcoholic steatohepatitis (NASH) (principal); K74.69 Other cirrhosis of liver; K80.80 Other cholelithiasis without obstruction

== ENCOUNTER → 2025-01-18 | Outpatient (CLI) | payer MEDICARE, MEDICAID ==
[2025-01-18 10:04] LABS: HEMATOCRIT 43.3 % (36.0-47.0); HEMOGLOBIN 14.1 g/dl (12.0-15.5); MEAN CORPUSCULAR HEMOGLOBIN 28.4 pg (27.0-33.0); MEAN CORPUSCULAR HGB CONC 32.6 g/dl (32.0-36.5); MEAN CORPUSCULAR VOLUME 87.3 fl (80.0-96.0); PLATELET COUNT, AUTOMATED 152 10^3/uL (150-450); RED BLOOD COUNT 4.96 10^6/uL (4.00-5.40); WHITE BLOOD COUNT 6.2 10^3/uL (4.0-10.0)
[2025-01-18 10:31] LABS: ALBUMIN 3.4 G/DL (3.2-5.2); BILIRUBIN,TOTAL 0.6 MG/DL (0.3-1.2); CALCIUM LEVEL 8.5 MG/DL (8.3-10.6); CHOLESTEROL RISK RATIO 2.62 (<5); CREATININE FOR GFR 0.97 MG/DL (0.55-1.30); GLOMERULAR FILTRATION RATE 64.9 (>45); LDL CHOLESTEROL 90.6 MG/DL (<100); TOTAL PROTEIN 6.5 G/DL (5.7-8.2)
[2025-01-18 10:32] LABS: THYROID STIMULATING HORMONE 2.811 uIU/ML (0.55-4.78)
[2025-01-18 10:33] LABS: FREE T4 1.15 NG/DL (0.89-1.76); TOTAL 25(OH) VITAMIN D 7.9 NG/ML (20.0-100.0)
== END ==
LOC: M LAB 09:09
PROVIDERS: ATTEND Registered Nurse
DX: I10 Essential (primary) hypertension (principal); E78.2 Mixed hyperlipidemia; E03.9 Hypothyroidism, unspecified; M81.0 Age-related osteoporosis without current pathological fracture

== ENCOUNTER → 2025-03-25 | Outpatient (REF) | payer MEDICARE, MEDICAID | LOC: M LAB REF 19:49 | PROVIDERS: ATTEND Physician Assistant | DX: R30.0 Dysuria (principal) ==

== ENCOUNTER → 2025-04-22 | Outpatient (REF) | payer MEDICARE, MEDICAID ==
[2025-04-22 16:16] LABS: APPEARANCE, URINE CLOUDY (CLEAR); BACTERIA, URINE AUTO 3+ (NEGATIVE); BILIRUBIN, URINE AUTO NEGATIVE (NEGATIVE); BLOOD, URINE BLOOD 2+ (NEGATIVE); GLUCOSE, URINE (UA) AUTO NEGATIVE (NEGATIVE); KETONE, URINE AUTO NEGATIVE (NEGATIVE); LEUKOCYTE ESTERASE, URINE AUTO 3+ (NEGATIVE); MUCUS, URINE SMALL (NEGATIVE); NITRITE, URINE AUTO NEGATIVE (NEGATIVE); PROTEIN, URINE AUTO 1+ mg/dL (NEGATIVE); RBC, URINE AUTO 8 /HPF (0-3); SPECIFIC GRAVITY URINE AUTO 1.004 (1.002-1.035); SQUAMOUS EPITHELIAL CELL UR AU 2 /HPF (0-6); UROBILINOGEN, URINE AUTO 0.2 mg/dL (0.0-2.0); WBC, URINE AUTO TNTC /HPF (0-3)
== END ==
LOC: M LAB REF 15:26
PROVIDERS: ATTEND Physician Assistant
DX: N39.0 Urinary tract infection, site not specified (principal)

== ENCOUNTER → 2025-05-24 | Outpatient (REF) | payer MEDICARE, MEDICAID ==
[2025-05-24 18:08] LABS: APPEARANCE, URINE CLOUDY (CLEAR); BACTERIA, URINE AUTO 2+ (NEGATIVE); BILIRUBIN, URINE AUTO NEGATIVE (NEGATIVE); BLOOD, URINE BLOOD 2+ (NEGATIVE); GLUCOSE, URINE (UA) AUTO NEGATIVE (NEGATIVE); KETONE, URINE AUTO NEGATIVE (NEGATIVE); LEUKOCYTE ESTERASE, URINE AUTO 3+ (NEGATIVE); NITRITE, URINE AUTO POSITIVE (NEGATIVE); PROTEIN, URINE AUTO 1+ mg/dL (NEGATIVE); RBC, URINE AUTO 33 /HPF (0-3); SPECIFIC GRAVITY URINE AUTO 1.019 (1.002-1.035); SQUAMOUS EPITHELIAL CELL UR AU 8 /HPF (0-6); TRANSITIONAL EPITHELIAL AUTO 1 /HPF; UROBILINOGEN, URINE AUTO 0.2 mg/dL (0.0-2.0); WBC, URINE AUTO TNTC /HPF (0-3)
== END ==
LOC: M LAB REF 17:02
PROVIDERS: ATTEND Physician Assistant
DX: N39.0 Urinary tract infection, site not specified (principal)

== ENCOUNTER → 2025-07-27 | Outpatient (CLI) | payer MEDICARE, MEDICAID ==
[~2025-07-27] MED LIST changes: +BUPR-363; -BUPR75TA5
== END ==
LOC: M RAD 13:24
PROVIDERS: ATTEND Physician Assistant
DX: N39.0 Urinary tract infection, site not specified (principal)

== ENCOUNTER → 2025-09-12 | Outpatient (CLI) | payer MEDICARE, MEDICAID ==
[~2025-09-12] MED LIST changes: -BACTDSTA; +SULF-8
== END ==
LOC: M WHC 15:04
PROVIDERS: ATTEND Registered Nurse
DX: Z12.31 Encounter for screening mammogram for malignant neoplasm of breast (principal); R92.313 Mammographic fatty tissue density, bilateral breasts